=== PATIENT | female | born 1940 ===

== ENCOUNTER 2017-06-07 06:44 | Emergency (ER) | payer MEDICARE, MEDICAID ==
--- NOTE | 2017-06-07 07:11 | ED PDOC ---
HPI: CCC, URI, Sore Throat Time Seen by Provider: 06/07/17 07:04 History Per: Family Onset/Duration Of Symptoms: Days (3) Current Symptoms Are (Timing): Still Present Associated Symptoms: Cough, Sputum. denies: Fever Severity: Moderate Additional Complaint(s): Cough productive beige sputum assoc with pleuritic chest pain x 3 days. Seen at ED in [place] and dx'ed with bronchitis but on no meds. denies SOB CT chest neg Past Medical History Vital Signs: Last Vital Signs Temp Pulse Resp BP 98/60 L 06/07/17 08:00 Pulse Ox - Medical History PMH: Alzheimer's Disease, Arthritis, Asthma, Dementia, Diabetes, Gastritis, HTN , Hypercholesterolemia Denies: Chronic Kidney Disease - Family History Family History: States: Unknown Family Hx - Home Medications Home Medications: Ambulatory Orders Medication Instructions Recorded Ammonium Lactate 12% [Lac-Hydrin 1 bottle TOP BID 02/28/17 12% Lotion (225 g)] Enalapril Maleate [Vasotec] 20 mg PO DAILY 02/28/17 Folic Acid 1 mg PO DAILY 02/28/17 Levothyroxine [Synthroid] 150 mcg PO DAILY 02/28/17 Memantine HCl [Namenda Xr] 28 mg PO DAILY 02/28/17 Metformin HCl [Glucophage] 850 mg PO BID 02/28/17 Omeprazole 20 mg PO DAILY 02/28/17 Rosuvastatin Calcium [Crestor] 10 mg pe PO HS 02/28/17 Sertraline HCl 50 mg PO DAILY 02/28/17 amLODIPine [Norvasc] 10 mg PO DAILY 02/28/17 Acetaminophen [Tylenol 325mg tab] 650 mg PO Q6 PRN tab 03/04/17 Aspirin [Aspirin Chewable] 81 mg PO DAILY chew 03/04/17 Enoxaparin [Lovenox] 40 mg SC DAILY syr 03/04/17 Memantine [Namenda] 10 mg PO BID tab 03/04/17 Albuterol 0.083% [Albuterol 3 ml IH Q8 #1 neb 06/07/17 Sulfate 3 Ml] Azithromycin [Zithromax] 250 mg PO DAILY #6 tab 06/07/17 Non-Formulary 1 ea .ROUTE Q6 #1 ea 06/07/17 predniSONE [predniSONE Tab] 10 mg PO TID #15 tab 06/07/17 - Allergies Allergies/Adverse Reactions: Allergies Allergy/AdvReac Type Severity Reaction Status Date / Time No Known Allergies Allergy Verified 08/08/14 08:10 Review of Systems Constitutional: Negative for: Fever Respiratory: Positive for: Cough, Pleuritic Pain. Negative for: Shortness of Breath Gastrointestinal: Negative for: Nausea, Vomiting Musculoskeletal: Positive for: Back Pain Physical Exam - Physical Exam Appears: Positive for: Non-toxic, No Acute Distress Skin: Positive for: Normal Color, Warm, DRY Cardiovascular/Chest: Positive for: Regular Rate, Rhythm Respiratory: Positive for: Rhonchi. Negative for: Wheezing, Respiratory Distress Back: Positive for: Normal Inspection. Negative for: Vertebral Tenderness Extremity: Positive for: Normal ROM Neurologic/Psych: Positive for: Alert, Oriented Disposition - Clinical Impression Clinical Impression: Bronchitis - Patient ED Disposition Is Patient to be Admitted: No Counseled Patient/Family Regarding: Studies Performed, Diagnosis, Need For Followup, Rx Given - Disposition Referrals: Jonel Jerry MD [Primary Care Provider] - Disposition: Routine/Home Disposition Time: 08:40 Condition: FAIR Prescriptions: Albuterol 0.083% [Albuterol Sulfate 3 Ml] 3 ml IH Q8 #1 neb Azithromycin [Zithromax] 250 mg PO DAILY #6 tab Non-Formulary 1 ea .ROUTE Q6 #1 ea predniSONE [predniSONE Tab] 10 mg PO TID #15 tab Instructions: Acute Bronchitis (ED) Print Language: FIJIAN
--- NOTE | 2017-06-07 09:57 | RAD ---
HISTORY: cough COMPARISON: Chest radiograph dated 02/28/2017. TECHNIQUE: Chest PA and lateral FINDINGS: LUNGS: Stable chronic prominence of the bilateral interstitial markings. No focal consolidation. PLEURA: No significant pleural effusion identified. No pneumothorax apparent. CARDIOVASCULAR: Atherosclerotic aortic calcifications. Cardiomediastinal silhouette unchanged. OSSEOUS STRUCTURES: Unchanged. VISUALIZED UPPER ABDOMEN: Normal. OTHER FINDINGS: None. IMPRESSION: Stable chronic prominence of the bilateral interstitial markings. No focal consolidation or pleural effusion.
[2017-06-07 10:35] VITALS: PULSE 86
[2017-06-07 10:50] VITALS: BP 100/60; RESP 16; TEMP 98.3
--- NOTE | 2017-06-08 16:46 | CARD ---
APPROVED REPORT EKG Measurement Heart [id number] <Conclusion> Normal sinus rhythm Normal ECG
== END 2017-06-07 10:53 | disposition home or self-care (01) ==
LOC: H.ER 06:44
DX: J20.9 Acute bronchitis, unspecified (principal); E11.9 Type 2 diabetes mellitus without complications; F02.80 Dementia in other diseases classified elsewhere, unspecified severity, without behavioral disturbance, psychotic disturbance, mood disturbance, and anxiety; G30.9 Alzheimer's disease, unspecified; I10 Essential (primary) hypertension; J45.909 Unspecified asthma, uncomplicated; E78.00 Pure hypercholesterolemia, unspecified

== ENCOUNTER 2017-09-19 11:02 | Emergency (ER) | payer MEDICARE, MEDICAID ==
[2017-09-19] MEDS ORDERED: Albuterol-Ipratrop 3 mg / 0.5 (3 ml) UD INH STA ×2 (11:46→11:47)
--- NOTE | 2017-09-19 11:59 | ED PDOC ---
History of Present Illness History of Present Illness: [facility] as patient has dementia and is unable to provide. She has been with the patient for 10 years. 77 year old female brought in by home health aide for cough x 4 days. She states she was given albuterol treatment yesterday at home without improvement. Cough is nonproductive, worse at night. No fevers, chills, cold symptoms, chest pain, dyspnea, abdominal pain, nausea, diarrhea. She has PMH: DM, Hypothyroid, Dementia, HTN PMD: Dr. Jonel Jerry <Clark Parada - Last Filed: 10/02/17 02:21> HPI: Influenza History Per: Patient <Clark Parada - Last Filed: 10/02/17 02:21> <Carlos Alberto Becker III - Last Filed: 10/04/17 18:27> Chief Complaint: Cough, Cold, Congestion Past Medical History Vital Signs: Last Vital Signs Temp 97.6 F 09/19/17 11:20 Pulse 79 09/19/17 11:20 Resp 20 09/19/17 11:20 BP 94/62 L 09/19/17 11:20 Pulse Ox 96 09/19/17 11:20 - Medical History PMH: Alzheimer's Disease, Arthritis, Asthma, Dementia, Diabetes, Gastritis, HTN , Hypercholesterolemia Denies: Chronic Kidney Disease - Family History Family History: States: Unknown Family Hx <Clark Parada - Last Filed: 10/02/17 02:21> Vital Signs: Last Vital Signs Temp 98.3 F 09/19/17 14:44 Pulse 73 09/19/17 14:44 Resp 15 09/19/17 14:44 BP 107/72 09/19/17 14:44 Pulse Ox 96 10/02/17 02:22 <Carlos Alberto Becker III - Last Filed: 10/04/17 18:27> - Home Medications Home Medications: Ambulatory Orders Medication Instructions Recorded Ammonium Lactate 12% [Lac-Hydrin 1 bottle TOP BID 02/28/17 12% Lotion (225 g)] Enalapril Maleate [Vasotec] 20 mg PO DAILY 02/28/17 Folic Acid 1 mg PO DAILY 02/28/17 Levothyroxine [Synthroid] 150 mcg PO DAILY 02/28/17 Memantine HCl [Namenda Xr] 28 mg PO DAILY 02/28/17 Metformin HCl [Glucophage] 850 mg PO BID 02/28/17 Omeprazole 20 mg PO DAILY 02/28/17 Rosuvastatin Calcium [Crestor] 10 mg pe PO HS 02/28/17 Sertraline HCl 50 mg PO DAILY 02/28/17 amLODIPine [Norvasc] 10 mg PO DAILY 02/28/17 Acetaminophen [Tylenol 325mg tab] 650 mg PO Q6 PRN tab 03/04/17 Aspirin [Aspirin Chewable] 81 mg PO DAILY chew 03/04/17 Enoxaparin [Lovenox] 40 mg SC DAILY syr 03/04/17 Memantine [Namenda] 10 mg PO BID tab 03/04/17 Albuterol 0.083% [Albuterol 3 ml IH Q8 #1 neb 06/07/17 Sulfate 3 Ml] Azithromycin [Zithromax] 250 mg PO DAILY #6 tab 06/07/17 Non-Formulary 1 ea .ROUTE Q6 #1 ea 06/07/17 predniSONE [predniSONE Tab] 10 mg PO TID #15 tab 06/07/17 predniSONE [predniSONE Tab] 20 mg PO DAILY #5 tab 09/19/17 - Allergies Allergies/Adverse Reactions: Allergies Allergy/AdvReac Type Severity Reaction Status Date / Time No Known Allergies Allergy Verified 08/08/14 08:10 Review of Systems Constitutional: Negative for: Fever, Chills, Sweats Eyes: Negative for: Pain, Vision Change ENT: Negative for: Ear Pain, Nose Pain Cardiovascular: Negative for: Chest Pain, Palpitations, Orthopnea Respiratory: Positive for: Cough, Wheezing. Negative for: Shortness of Breath, Hemoptysis, SOB with Exertion, Pleuritic Pain, Sputum Gastrointestinal: Negative for: Nausea, Vomiting, Abdominal Pain, Diarrhea, Constipation Genitourinary Female: Negative for: Dysuria, Frequency, Hematuria Skin: Negative for: Rash Neurological: Negative for: Weakness, Numbness, Incoordination Psych: Negative for: Anxiety, Depression <Clark Parada - Last Filed: 10/02/17 02:21> Physical Exam - Physical Exam Appears: Positive for: Well, Non-toxic, No Acute Distress Head Exam: Positive for: ATRAUMATIC, NORMAL INSPECTION, NORMOCEPHALIC Skin: Positive for: Normal Color, Warm, DRY Eye Exam: Positive for: Normal appearance ENT: Positive for: Normal ENT Inspection Neck: Positive for: Normal, Painless ROM Cardiovascular/Chest: Negative for: Regular Rate, Rhythm, Chest Non Tender, Edema, Murmur, Bradycardia, Tachycardia Respiratory: Positive for: Decreased Breath Sounds, Wheezing. Negative for: Accessory Muscle Use, Stridor, Respiratory Distress, Plerual Rub Gastrointestinal/Abdominal: Negative for: Normal Exam, Bowel Sounds, Soft, Tenderness Back: Positive for: Normal Inspection Extremity: Negative for: Tenderness, Pedal Edema Neurologic/Psych: Positive for: Alert, ssas developer II-XII, Oriented. Negative for: Motor/Sensory Deficits <Clark Parada - Last Filed: 10/02/17 02:21> Medical Decision Making Medical Decision Makin77 year old female with non productive cough x 4 days. , likely related to COPD. --CBC --CMP --CXR --DUONEB x 2 Case d/w Dr. Becker --13:41 Patient reeval: lying comfortably in bed. No cough. CXR reviewed pending report Labs reviewed and discussed with patient. No leukocytosis, mild anemia. Elevated BUN/CR that is chronic. D/w Dr. Becker <Clark Parada - Last Filed: 10/02/17 02:21> - Laboratory Results Result Diagrams: 09/19/17 12:50 09/19/17 12:50 - ECG O2 Sat by Pulse Oximetry: 96 <Clark Parada - Last Filed: 10/02/17 02:21> - Laboratory Results Result Diagrams: 09/19/17 12:50 09/19/17 12:50 <Carlos Alberto Becker III - Last Filed: 10/04/17 18:27> Disposition - Disposition Disposition Time: 02:22 <Clark Parada - Last Filed: 10/02/17 02:21> <Carlos Alberto Becker III - Last Filed: 10/04/17 18:27> - Clinical Impression Clinical Impression: Cough, Acute bronchitis - Disposition Referrals: Jonel Jerry MD [Family Provider] - Condition: STABLE Additional Instructions: Return to ED in 1-2 days if symptoms do not improve. Prescriptions: predniSONE [predniSONE Tab] 20 mg PO DAILY #5 tab Instructions: Cough in Adults, Acute Bronchitis, Adult (DC), Acute Bronchitis Forms: [facility] (Italian) Print Language: KHMER Attending/Attestation - Attestation I have personally seen and examined this patient.: Yes I have fully participated in the care of the patient.: Yes I have reviewed all pertinent clinical information: Yes <Carlos Alberto Becker III - Last Filed: 10/04/17 18:27>
[2017-09-19] MEDS ORDERED: Albuterol-Ipratrop 3 mg / 0.5 (3 ml) UD ONE (12:04)
[2017-09-19 13:22] LABS: ALB/GLOB RATIO 1.3 (1.0-2.1); CALCIUM 9.6 mg/dL (8.4-10.2)
[2017-09-19 13:31] LABS: BASO # 0.2 K/uL (0.0-0.2); BASO % 2.5 % (0.0-2.0); EOS # 0.8 K/uL (0.0-0.7); EOS % 8.4 % (0.0-4.0); LYMPH # 3.7 K/uL (1.0-4.3); LYMPH % 41.5 % (20.0-40.0); MEAN CELL VOLUME 90.7 fl (81.0-99.0); MEAN CORPUSCULAR HEMOGLOBIN 30.2 pg (27.0-31.0); MEAN CORPUSCULAR HGB CONC 33.3 g/dL (33.0-37.0); MONO # 0.6 K/uL (0.0-0.8); MONO % 6.7 % (0.0-10.0); NEUT # 3.7 K/uL (1.8-7.0); NEUT % 40.9 % (50.0-75.0); RBC 3.64 Mil/uL (3.80-5.20); RED CELL DISTRIBUTION WIDTH 13.3 % (11.5-14.5)
--- NOTE | 2017-09-19 13:52 | RAD ---
HISTORY: COMPARISON: 06/07/2017. TECHNIQUE: Chest PA and lateral FINDINGS: LINES AND TUBES: None. LUNG AND PLEURA: The lungs are well inflated. There is mild pulmonary venous congestion. No focal consolidation. HEART AND MEDIASTINUM: The heart is not enlarged. The hilar and mediastinal contours are within normal limits. SKELETAL STRUCTURES: The bony structures are within normal limits for the patient's age. VISUALIZED UPPER ABDOMEN: Normal. OTHER FINDINGS: None. IMPRESSION: Mild pulmonary venous congestion. No active pulmonary disease.
[2017-09-19 14:45] VITALS: BP 107/72; PULSE 73; RESP 15; TEMP 98.3
[2017-10-02 02:22] VITALS: O2SAT 96
== END 2017-09-19 14:47 | disposition home or self-care (01) ==
LOC: H.ER 11:02
DX: J20.9 Acute bronchitis, unspecified (principal); F02.80 Dementia in other diseases classified elsewhere, unspecified severity, without behavioral disturbance, psychotic disturbance, mood disturbance, and anxiety; I10 Essential (primary) hypertension; J45.909 Unspecified asthma, uncomplicated; Z79.82 Long term (current) use of aspirin; G30.9 Alzheimer's disease, unspecified; E78.00 Pure hypercholesterolemia, unspecified; E11.9 Type 2 diabetes mellitus without complications; E03.9 Hypothyroidism, unspecified
CPT/HCPCS: 71046; 80053; 85025; 94640; 96374; 99283; J2930

== ENCOUNTER 2017-11-05 09:20 | Inpatient (IN) | payer MEDICARE, MEDICAID ==
[2017-11-05] MEDS ORDERED: Albuterol-Ipratrop 3 mg / 0.5 (3 ml) UD IH STA (10:04)
--- NOTE | 2017-11-05 10:24 | ED PDOC ---
History of Present Illness History of Present Illness: 77 year old female with dementia and asthma presents to the ED with her daughter complaining of a non productive cough for five months, and a fever onset this morning. Denies chest pain and shortness of breath. The daughter states she has been giving the patient a nebulizer and inhaler at home with almost no improvement. PMD: Jonel Jerry HPI: Influenza Time Seen by Provider: 11/05/17 10:01 Chief Complaint: Cough, Cold, Congestion Past Medical History Reviewed: Historical Data Vital Signs: Last Vital Signs Temp 100.4 F H 11/05/17 09:43 Pulse 126 H 11/05/17 09:43 Resp 20 11/05/17 09:43 BP 105/59 L 11/05/17 09:43 Pulse Ox 95 11/05/17 09:43 - Medical History PMH: Alzheimer's Disease, Arthritis, Asthma, Dementia, Diabetes, Gastritis, HTN , Hypercholesterolemia Denies: Chronic Kidney Disease - Surgical History Surgical History: No Surg Hx - Family History Family History: States: Unknown Family Hx - Social History Ex-Smoker (has not smoked in the last 12 months): Yes Alcohol: None Drugs: Denies - Home Medications Home Medications: Ambulatory Orders Medication Instructions Recorded Enalapril Maleate [Vasotec] 20 mg PO DAILY 02/28/17 Levothyroxine [Synthroid] 88 mcg PO DAILY 02/28/17 Memantine HCl [Namenda Xr] 28 mg PO DAILY 02/28/17 Metformin HCl [Glucophage] 850 mg PO BID 02/28/17 Omeprazole 20 mg PO DAILY 02/28/17 Sertraline HCl 50 mg PO DAILY 02/28/17 amLODIPine [Norvasc] 10 mg PO DAILY 02/28/17 Aspirin [Aspirin Chewable] 81 mg PO DAILY chew 03/04/17 Cyproheptadine HCl 4 mg PO DAILY 11/05/17 Mirtazapine [Remeron] 15 mg PO HS 11/05/17 Rosuvastatin Calcium [Crestor] 10 mg PO DAILY 11/05/17 - Allergies Allergies/Adverse Reactions: Allergies Allergy/AdvReac Type Severity Reaction Status Date / Time No Known Allergies Allergy Verified 11/05/17 09:52 Review of Systems ROS Statement: Except As Marked, All Systems Reviewed And Found Negative Constitutional: Positive for: Fever Cardiovascular: Negative for: Chest Pain Respiratory: Positive for: Cough (non productive). Negative for: Shortness of Breath Physical Exam - Reviewed Nursing Documentation Reviewed: Yes Vital Signs Reviewed: Yes - Physical Exam Appears: Positive for: No Acute Distress Head Exam: Positive for: ATRAUMATIC, NORMOCEPHALIC Skin: Positive for: Normal Color, Warm, Dry Eye Exam: Positive for: Normal appearance ENT: Positive for: Normal ENT Inspection. Negative for: Pharyngeal Erythema Neck: Positive for: Normal, Painless ROM, Supple Cardiovascular/Chest: Positive for: Regular Rate, Rhythm. Negative for: Murmur Respiratory: Positive for: Rhonchi (bilaterally), Wheezing (expiratory bilaterally). Negative for: Respiratory Distress Gastrointestinal/Abdominal: Positive for: Normal Exam, Soft. Negative for: Tenderness Back: Positive for: Normal Inspection Extremity: Positive for: Normal ROM. Negative for: Pedal Edema, Calf Tenderness Neurologic/Psych: Positive for: Alert, Oriented (x1). Negative for: Motor/ Sensory Deficits Medical Decision Making Medical Decision Making: Initial Impression: cough, asthma, cold-like symptoms Time: 10:04 Initial Plan: --EKG --CMP --Urine dipstick --CBC with differential --Chest XR --Duoneb 3ml INH --methylprednisolone 125mg IVP --Blood culture --Peak flow pre/post Scribe Attestation: Documented by Lidia Villavicencio, acting as a scribe for Abraham Pate MD. Provider Scribe Attestation: All medical entries made by the Scribe were at my direction and personally dictated by me. I have reviewed the chart and agree that the record accurately reflects my personal performance of the history, physical exam, medical decision making, and the department course for this patient. I have also personally directed, reviewed, and agree with the discharge instructions and disposition. - Laboratory Results Result Diagrams: 11/05/17 10:26 11/05/17 10:26 - ECG O2 Sat by Pulse Oximetry: 95 Disposition - Clinical Impression Clinical Impression: Bronchitis, Asthma, Diabetes, Dementia - Patient ED Disposition Is Patient to be Admitted: Yes - Disposition Disposition Time: 11:48 Condition: FAIR Forms: [facility] (Croatian) - Pt Status Changed To: Hospital Disposition Of: Observation - POA Present On Arrival: None
[2017-11-05] MEDS ORDERED: Albuterol-Ipratrop 3 mg / 0.5 (3 ml) UD ONE (10:27)
[2017-11-05 10:40] LABS: BASO # 0.1 K/uL (0.0-0.2); BASO % 1.1 % (0.0-2.0); EOS # 0.1 K/uL (0.0-0.7); HEMOGLOBIN 10.3 g/dL (12.0-16.0); LYMPH # 0.9 K/uL (1.0-4.3); MEAN CORPUSCULAR HEMOGLOBIN 30.1 pg (27.0-31.0); MEAN CORPUSCULAR HGB CONC 34.1 g/dL (33.0-37.0); MEAN PLATELET VOLUME 8.8 fl (7.2-11.7); MONO # 0.6 K/uL (0.0-0.8); MONO % 5.6 % (0.0-10.0); NEUT # 9.5 K/uL (1.8-7.0); NEUT % 84.3 % (50.0-75.0); PLATELET COUNT 182 K/uL (130-400); RED CELL DISTRIBUTION WIDTH 14.2 % (11.5-14.5); WHITE BLOOD COUNT 11.2 K/uL (4.8-10.8)
[2017-11-05 10:44] LABS: MEAN CELL VOLUME 88.3 fl (81.0-99.0)
[2017-11-05 10:47] LABS: ALB/GLOB RATIO 1.2 (1.0-2.1); ALBUMIN 4.2 g/dL (3.5-5.0); CALCIUM 9.1 mg/dL (8.4-10.2)
--- NOTE | 2017-11-05 10:47 | RAD ---
HISTORY: cough COMPARISON: Chest radiograph dated 09/19/2017. TECHNIQUE: Chest PA and lateral FINDINGS: LUNGS: Stable chronic prominence of the bilateral interstitial markings. No focal consolidation. PLEURA: No significant pleural effusion identified. No pneumothorax apparent. CARDIOVASCULAR: Atherosclerotic aortic calcifications. Cardiomediastinal silhouette within normal limits. OSSEOUS STRUCTURES: Unchanged. VISUALIZED UPPER ABDOMEN: Normal. OTHER FINDINGS: None. IMPRESSION: No active disease.
[2017-11-05] MEDS ORDERED: cefTRIAXone (Rocephin) 1 gm Inj ONE (12:03)
[2017-11-05 13:03] LABS: EOSINOPHIL 1 % (0-7); LYMPHOCYTE 10 % (20-50); MONOCYTE 5 % (0-10); NEUTROPHIL 83 % (42-75); PLATELET ESTIMATE NORMAL (NORMAL); REACTIVE LYMPHOCYTES 1 % (0-0); TOTAL CELLS COUNTED 100
[2017-11-05 13:04] LABS: ANISOCYTOSIS SLIGHT; GIANT PLATELETS PRESENT; HYPOCHROMIC SLIGHT; LARGE PLATELETS PRESENT; OVALOCYTES SLIGHT
[2017-11-05] MEDS ORDERED: Albuterol-Ipratrop 3 mg / 0.5 (3 ml) UD INH PRN (16:29)
--- NOTE | 2017-11-05 16:51 | US ---
PROCEDURE: Ultrasound of the Kidneys HISTORY: MAGUI COMPARISON: None available. TECHNIQUE: Sonogram of the kidneys. FINDINGS: RIGHT KIDNEY: Measures: 7.4 x 3.9 x 4.2 cm. Normal in size, contour and echogenicity. No stone, solid mass lesion or hydronephrosis visualized. LEFT KIDNEY: Measures: 8.4 x 4.6 x 4.0 cm. Normal in size, contour and echogenicity. No stone, solid mass lesion or hydronephrosis visualized. OTHER FINDINGS: None. IMPRESSION: Unremarkable renal sonogram.
[2017-11-05] MEDS: Insulin Regular 100 units/ml SC SCH ×2 (18:17→23:04)
[2017-11-05] MEDS: Sodium Chloride 0.9% 1,000 ML IV SCH (18:18)
[2017-11-05 19:16] LABS: URIC ACID 6.6 mg/Dl (2.2-7.5)
[2017-11-05 19:21] LABS: IRON 17 ug/dL (37-170)
[2017-11-05] MEDS: Albuterol-Ipratrop 3 mg / 0.5 (3 ml) UD INH SCH (19:24)
[2017-11-05 19:31] LABS: % IRON SATURATION 5 % (20-55); TOTAL IRON BINDING CAPACITY 318 ug/dL (250-450)
[2017-11-05 19:56] LABS: FERRITIN 45.2 ng/Ml (11.1-264.0)
--- NOTE | 2017-11-05 22:18 | CP.PCM.CON ---
History of Present Illness - History of Present Illness History of Present Illness: Nephrology Consultation Note: Assessment: Stable Acute Kidney Injury (N17.9) likely due to pre-renal/dehydration and low BP Diabetic chronic Kidney Disease (E11.22) Hypertensive Chronic Kidney Disease (I12.9) Chronic Kidney Disease (N18.3) Stage 3 with ? mg proteinuria (R80.9) likely due to ? Anemia (D64.9), HTN (I12.9) COPD exacerbation dementia hypothyroidism Plan No acute need for renal replacement therapy at this time. BP control tightly with meds as ordered. Patient not on ACEI/ARB due to MAGUI. hold BP meds Monitor Input/Output, daily weights and renal function with basic metabolic panel IVF as NS @ 100 ml/hr Check urine analysis, urine NA, spot protein/creatinine and albumin/creatinine ratio, renal sonogram. BNP, CPK, uric acid. Check for 25-OH vitamin D, iPTH, phosphorus level, TSAT/Ferritin hold metformin Dose meds/antibiotics for reduced GFR. Avoid fleets enema/magnesium based laxatives. Avoid nephrotoxins/NSAIDs/ iodinated contrast (unless needed emergently) Glycemic control Further work up/management as per primary team Thanks for allowing me to participate in care of your patient. Will follow patient with you. Please call if any Qs Dr Ken Zuñiga Office: [phone] Chief Complaint; cough reason for consult: MAGUI HPI: Pt is a 77 F with hx of diabetes Mellitus ( years), hypertension (years) dementia asthma/copd, ex smoker presented with complaints of cough for last few months but worsening and MAGUI hence renal consulted Denies OTC/herbal meds or NSAIDs No recent iodinated contrast exposure. Noted obvious episodes of low BP. likely with CKD stage 3 with baseline cr as 1.3 pt unable to provide much hx ROS: Cardiovascular: No chest pain. Pulmonary: No shortness of breath Gastrointestinal: denies abdominal pain No nausea. No vomiting. Genitourinary: No pain while urinating. Denies blood in urine. limited from pt due to dementia. Physical Examination: family bedside General Appearance: Comfortable, in no acute respiratory distress, co-operative . Vitals reviewed and noted as below Head; Atraumatic, normocephalic ENT: no ulcers no thrush. Tongue is midline/dry. Oropharynx: no rash or ulcers. EYES: Pupils are equal, round and reactive to light accommodation. Eye muscles and extraocular movement intact. Sclera is anicteric. Neck; supple no lymphadenopathy, no thyromegaly or bruit Lungs: Normal respiratory rate/effort. Breath sounds bilateral equal and few wheeze Heart: Normal rate. s1s2 normal. No rub or gallop. Extremities: no edema. No varicose veins Neurological: Patient is alert, awake and demented. No focal deficit. Strength bilateral appropriate and equal Skin: Warm and dry. Normal turgor. No rash. Palpitation: Normal elasticity for age Abdomen: Abdomen is soft. Bowel sounds +. There is no abdominal tenderness, no guarding/rigidity no organomegaly Psych: lack insight and normal affect/mood MSK: no joint tenderness or swelling. Digits and nails normal, no deformity : kidney or bladder not palpable Labs/imaging reviewed. Past medical history, past surgical history, family history, social history, allergy reviewed and noted as below Family hx: no hx of CKD. Rest non-contributory Past Patient History - Past Medical History & Family History Past Medical History?: Yes - Past Social History Smoking Status: Former Smoker - CARDIAC Hx Cardiac Disorders: Yes - PULMONARY Hx Respiratory Disorders: Yes - NEUROLOGICAL Hx Alzheimer's Disease: Yes Hx Dementia: Yes - HEENT Hx HEENT Problems: No - RENAL Hx Chronic Kidney Disease: No - ENDOCRINE/METABOLIC Hx Endocrine Disorders: Yes - HEMATOLOGICAL/ONCOLOGICAL Hx Cancer: Yes - INTEGUMENTARY Hx Dermatological Problems: No - MUSCULOSKELETAL/RHEUMATOLOGICAL Hx Musculoskeletal Disorders: Yes Hx Falls: Yes - GASTROINTESTINAL Hx Gastritis: Yes - GENITOURINARY/GYNECOLOGICAL Hx Genitourinary Disorders: Yes Hx Cervical Cancer: Yes - PSYCHIATRIC Hx Psychophysiologic Disorder: Yes Hx Substance Use: No - SURGICAL HISTORY Hx Hysterectomy: Yes - ANESTHESIA Hx Anesthesia: Yes Hx Anesthesia Reactions: No Hx Malignant Hyperthermia: No Meds Allergies/Adverse Reactions: Allergies Allergy/AdvReac Type Severity Reaction Status Date / Time No Known Allergies Allergy Verified 11/05/17 09:52 - Medications Medications: Current Medications Albuterol/Ipratropium (Duoneb 3 Mg/0.5 Mg (3 Ml) Ud) 3 ml INH RQ6 MEJIA Last Admin: 11/05/17 19:24 Dose: 3 ml Aspirin (Aspirin Chewable) 81 mg PO DAILY MEJIA Atorvastatin Calcium (Lipitor) 20 mg PO DAILY [facility] Home Med (Memantine Hcl [Namenda Xr]) 28 mg PO DAILY [facility] Ceftriaxone Sodium 1 gm/ (Sodium Chloride) 100 mls @ 100 mls/hr IVPB DAILY MEJIA PRN Reason: Protocol Sodium Chloride (Sodium Chloride 0.9%) 1,000 mls @ 100 mls/hr IV .Q10H MEJIA Stop: 11/07/17 16:16 Last Admin: 11/05/17 18:18 Dose: 100 mls/hr Insulin Human Regular (Humulin R) 0 units SC ACCU-CHECK MEJIA PRN Reason: Protocol Last Admin: 11/05/17 18:17 Dose: 2 u Levothyroxine Sodium (Synthroid) 88 mcg PO DAILY [facility] Methylprednisolone (Solu-Medrol) 125 mg IVP Q8 [facility] Last Admin: 11/05/17 18:20 Dose: 125 mg Mirtazapine (Remeron) 15 mg PO HS [facility] Pantoprazole Sodium (Protonix Ec Tab) 40 mg PO DAILY [facility] Sertraline HCl (Zoloft) 50 mg PO DAILY [facility] Results - Vital Signs Recent Vital Signs: Last Vital Signs Temp 98 F 11/05/17 16:50 Pulse 100 H 11/05/17 19:24 Resp 18 11/05/17 16:50 BP 104/64 11/05/17 16:50 Pulse Ox 98 11/05/17 16:50 - Labs Result Diagrams: 11/05/17 10:26 11/05/17 10:26 Labs: Laboratory Results - last 24 hr 11/05/17 11/05/17 11/05/17 10:26 10:26 17:37 WBC 11.2 H RBC 3.40 L Hgb 10.3 L Hct 30.1 L MCV 88.3 D MCH 30.1 MCHC 34.1 RDW 14.2 Plt Count 182 D MPV 8.8 Neut % (Auto) 84.3 H Lymph % (Auto) 8.0 L Riley % (Auto) 5.6 Eos % (Auto) 1.0 Baso % (Auto) 1.1 Neut # (Auto) 9.5 H Lymph # (Auto) 0.9 L Riley # (Auto) 0.6 Eos # (Auto) 0.1 Baso # (Auto) 0.1 Neutrophils % (Manual) 83 H Lymphocytes % (Manual) 10 L Reactive Lymphs % 1 H Monocytes % (Manual) 5 Eosinophils % (Manual) 1 Platelet Estimate Normal Large Platelets Present Giant Platelets Present Hypochromasia (manual) Slight Anisocytosis (manual) Slight Ovalocytes Slight Sodium 140 Potassium 4.8 Chloride 106 Carbon Dioxide 20 L Anion Gap 19 BUN 46 H Creatinine 3.4 H Est GFR ( Amer) 16 Est GFR (Non-Af Amer) 13 POC Glucose (mg/dL) 182 H Random Glucose 122 H Uric Acid Calcium 9.1 Iron TIBC % Saturation Ferritin Total Bilirubin 0.8 AST 24 ALT 24 Alkaline Phosphatase 78 Total Creatine Kinase NT-Pro-B Natriuret Pep Total Protein 7.7 Albumin 4.2 Globulin 3.5 Albumin/Globulin Ratio 1.2 11/05/17 11/05/17 18:52 18:52 WBC RBC Hgb Hct MCV MCH MCHC RDW Plt Count MPV Neut % (Auto) Lymph % (Auto) Riley % (Auto) Eos % (Auto) Baso % (Auto) Neut # (Auto) Lymph # (Auto) Riley # (Auto) Eos # (Auto) Baso # (Auto) Neutrophils % (Manual) Lymphocytes % (Manual) Reactive Lymphs % Monocytes % (Manual) Eosinophils % (Manual) Platelet Estimate Large Platelets Giant Platelets Hypochromasia (manual) Anisocytosis (manual) Ovalocytes Sodium Potassium Chloride Carbon Dioxide Anion Gap BUN Creatinine Est GFR ( Amer) Est GFR (Non-Af Amer) POC Glucose (mg/dL) Random Glucose Uric Acid 6.6 Calcium Iron 17 L TIBC 318 % Saturation 5 L Ferritin 45.2 Total Bilirubin AST ALT Alkaline Phosphatase Total Creatine Kinase 71 NT-Pro-B Natriuret Pep 1870 H Total Protein Albumin Globulin Albumin/Globulin Ratio
[2017-11-06] MEDS: Albuterol-Ipratrop 3 mg / 0.5 (3 ml) UD INH SCH ×4 (01:20→19:10)
[2017-11-06] MEDS: Sodium Chloride 0.9% 1,000 ML IV SCH ×2 (01:23→14:37)
[2017-11-06] MEDS: Insulin Regular 100 units/ml SC SCH ×4 (07:48→22:30)
[2017-11-06 07:53] LABS: BASO % 0.1 % (0.0-2.0); HEMOGLOBIN 9.8 g/dL (12.0-16.0); LYMPH # 0.5 K/uL (1.0-4.3); MEAN CELL VOLUME 88.4 fl (81.0-99.0); MEAN CORPUSCULAR HEMOGLOBIN 30.4 pg (27.0-31.0); MEAN CORPUSCULAR HGB CONC 34.4 g/dL (33.0-37.0); MEAN PLATELET VOLUME 9.2 fl (7.2-11.7); MONO # 0.1 K/uL (0.0-0.8); MONO % 1.1 % (0.0-10.0); NEUT # 9.4 K/uL (1.8-7.0); NEUT % 93.8 % (50.0-75.0); PLATELET COUNT 193 K/uL (130-400); RBC 3.22 Mil/uL (3.80-5.20); RED CELL DISTRIBUTION WIDTH 14.1 % (11.5-14.5); WHITE BLOOD COUNT 10.1 K/uL (4.8-10.8)
[2017-11-06 08:04] LABS: CALCIUM 9.2 mg/dL (8.4-10.2)
[2017-11-06] MEDS: Levothyroxine 88 MCG TAB PO SCH (09:47)
[2017-11-06] MEDS: Multivitamin Vitamin B Complex (Nephro-Vite) Tab PO SCH (09:47)
[2017-11-06] MEDS: Pantoprazole 40 mg EC Tab PO SCH (09:48)
[2017-11-06 10:40] LABS: LYMPHOCYTE 6 % (20-50); MONOCYTE 2 % (0-10); NEUTROPHIL 92 % (42-75); TOTAL CELLS COUNTED 100
[2017-11-06 10:41] LABS: ANISOCYTOSIS SLIGHT; OVALOCYTES SLIGHT; PLATELET ESTIMATE NORMAL (NORMAL)
[2017-11-06 10:42] LABS: MICROCYTOSIS SLIGHT
[2017-11-06 16:44] LABS: SQUAMOUS EPITHIAL 2 /hpf (0-5); URINE BACTERIA RARE (<OCC); URINE BILIRUBIN NEGATIVE (NEGATIVE); URINE CLARITY CLOUDY (Clear); URINE COLOR YELLOW (YELLOW); URINE GLUCOSE (UA) 50 mg/dL (Normal); URINE PROTEIN 100 mg/dL (NEGATIVE); URINE UROBILINOGEN 0.2-1.0 mg/dL (0.2-1.0)
[2017-11-06 16:45] LABS: URINE BLOOD NEGATIVE (NEGATIVE); URINE LEUKOCYTE ESTERASE NEGATIVE Leu/uL (Negative)
[2017-11-06 16:57] LABS: CREATININE, RANDOM URINE 78.2 mg/dL
[2017-11-06] MEDS ORDERED: Sodium Chloride 0.9% 1,000 ML IV SCH (19:01)
--- NOTE | 2017-11-06 19:02 | CP.PCM.PN ---
Subjective - Date & Time of Evaluation Date of Evaluation: 11/06/17 Time of Evaluation: 19:01 - Subjective Subjective: Nephrology Consultation Note: Assessment: Stable Acute Kidney Injury (N17.9) likely due to pre-renal/dehydration and low BP: better with IVF Diabetic chronic Kidney Disease (E11.22) Hypertensive Chronic Kidney Disease (I12.9) Chronic Kidney Disease (N18.3) Stage 3 with ? mg proteinuria (R80.9) likely due to ? Anemia (D64.9), HTN (I12.9) COPD exacerbation dementia hypothyroidism Plan No acute need for renal replacement therapy at this time. BP control tightly with meds as ordered. Patient not on ACEI/ARB due to MAGUI. hold BP meds Monitor Input/Output, daily weights and renal function with basic metabolic panel IVF as NS @ 50 ml/hr started iron supplements Check urine analysis, urine NA, spot protein/creatinine and albumin/creatinine ratio, renal sonogram. BNP, CPK, uric acid. Check for 25-OH vitamin D, iPTH, phosphorus level, TSAT/Ferritin hold metformin Dose meds/antibiotics for reduced GFR. Avoid fleets enema/magnesium based laxatives. Avoid nephrotoxins/NSAIDs/ iodinated contrast (unless needed emergently) Glycemic control Further work up/management as per primary team Thanks for allowing me to participate in care of your patient. Will follow patient with you. Please call if any Qs Dr Ken Zuñiga Office: [phone] Chief Complaint; cough reason for consult: MAGUI HPI: Pt is a 77 F with hx of diabetes Mellitus ( years), hypertension (years) dementia asthma/copd, ex smoker presented with complaints of cough for last few months but worsening and MAGUI hence renal consulted Denies OTC/herbal meds or NSAIDs No recent iodinated contrast exposure. Noted obvious episodes of low BP. likely with CKD stage 3 with baseline cr as 1.3 pt unable to provide much hx ROS: Cardiovascular: No chest pain. Pulmonary: No shortness of breath Gastrointestinal: denies abdominal pain No nausea. No vomiting. Genitourinary: No pain while urinating. Denies blood in urine. limited from pt due to dementia. Physical Examination: family bedside General Appearance: Comfortable, in no acute respiratory distress, co-operative . Vitals reviewed and noted as below Head; Atraumatic, normocephalic ENT: no ulcers no thrush. Tongue is midline/dry. Oropharynx: no rash or ulcers. EYES: Pupils are equal, round and reactive to light accommodation. Eye muscles and extraocular movement intact. Sclera is anicteric. Neck; supple no lymphadenopathy, no thyromegaly or bruit Lungs: Normal respiratory rate/effort. Breath sounds bilateral equal and clearer Heart: Normal rate. s1s2 normal. No rub or gallop. Extremities: no edema. No varicose veins Neurological: Patient is alert, awake and demented. No focal deficit. Strength bilateral appropriate and equal Skin: Warm and dry. Normal turgor. No rash. Palpitation: Normal elasticity for age Abdomen: Abdomen is soft. Bowel sounds +. There is no abdominal tenderness, no guarding/rigidity no organomegaly Psych: lack insight and normal affect/mood MSK: no joint tenderness or swelling. Digits and nails normal, no deformity : kidney or bladder not palpable Labs/imaging reviewed. Past medical history, past surgical history, family history, social history, allergy reviewed and noted as below Family hx: no hx of CKD. Rest non-contributory Objective - Vital Signs/Intake and Output Vital Signs (last 24 hours): Temp Pulse Resp BP Pulse Ox 98.3 F 99 H 20 93/58 L 95 11/06/17 16:00 11/06/17 16:00 11/06/17 16:00 11/06/17 17:37 11/06/17 16:00 - Medications Medications: Current Medications Albuterol/Ipratropium (Duoneb 3 Mg/0.5 Mg (3 Ml) Ud) 3 ml INH RQ6 [facility] Last Admin: 11/06/17 13:20 Dose: 3 ml Aspirin (Aspirin Chewable) 81 mg PO DAILY [facility] Last Admin: 11/06/17 09:47 Dose: 81 mg Atorvastatin Calcium (Lipitor) 20 mg PO DAILY [facility] Last Admin: 11/06/17 09:47 Dose: 20 mg Azithromycin (Zithromax) 500 mg PO DAILY [facility] PRN Reason: Protocol Last Admin: 11/06/17 14:36 Dose: 500 mg Ferrous Gluconate (Fergon) 324 mg PO TID [facility] Last Admin: 11/06/17 17:34 Dose: 324 mg Furosemide (Lasix) 20 mg IVP BID [facility] Last Admin: 11/06/17 17:37 Dose: Not Given Sodium Chloride (Sodium Chloride 0.9%) 1,000 mls @ 50 mls/hr IV .Q20H [facility] Stop: 11/08/17 19:02 Insulin Human Regular (Humulin R) 0 units SC ACCU-CHECK [facility] PRN Reason: Protocol Last Admin: 11/06/17 17:34 Dose: 6 u Levothyroxine Sodium (Synthroid) 88 mcg PO DAILY [facility] Last Admin: 11/06/17 09:47 Dose: 88 mcg Memantine (Namenda) 10 mg PO BID [facility] Last Admin: 11/06/17 17:37 Dose: 10 mg Methylprednisolone (Solu-Medrol) 60 mg IVP Q8 [facility] Last Admin: 11/06/17 17:38 Dose: 60 mg Mirtazapine (Remeron) 15 mg PO HS [facility] Last Admin: 11/05/17 23:04 Dose: 15 mg Pantoprazole Sodium (Protonix Ec Tab) 40 mg PO DAILY [facility] Last Admin: 11/06/17 09:48 Dose: 40 mg Sertraline HCl (Zoloft) 50 mg PO DAILY [facility] Last Admin: 11/06/17 09:47 Dose: 50 mg Vitamin B Complex/Vit C/Folic Acid (Nephro-Rusty) 1 tab PO DAILY [facility] Last Admin: 11/06/17 09:47 Dose: 1 tab - Labs Labs: 11/06/17 06:20 11/06/17 06:20
[2017-11-07] MEDS: Albuterol-Ipratrop 3 mg / 0.5 (3 ml) UD INH SCH ×4 (01:03→19:09)
[2017-11-07 05:43] LABS: HEMOGLOBIN 9.1 g/dL (12.0-16.0); MEAN CELL VOLUME 87.9 fl (81.0-99.0); MEAN CORPUSCULAR HEMOGLOBIN 29.5 pg (27.0-31.0); MEAN CORPUSCULAR HGB CONC 33.5 g/dL (33.0-37.0); RBC 3.08 Mil/uL (3.80-5.20); WHITE BLOOD COUNT 16.2 K/uL (4.8-10.8)
[2017-11-07 05:54] LABS: ALB/GLOB RATIO 1.2 (1.0-2.1); ALBUMIN 3.8 g/dL (3.5-5.0); CALCIUM 9.2 mg/dL (8.4-10.2)
[2017-11-07] MEDS: Insulin Regular 100 units/ml SC SCH ×4 (06:35→23:00)
[2017-11-07] MEDS: Levothyroxine 88 MCG TAB PO SCH (09:46)
[2017-11-07] MEDS: Pantoprazole 40 mg EC Tab PO SCH (09:47)
[2017-11-07] MEDS: Multivitamin Vitamin B Complex (Nephro-Vite) Tab PO SCH (09:47)
--- NOTE | 2017-11-07 10:02 | CP.PCM.HP ---
History of Present Illness - History of Present Illness History of Present Illness: This is a 77 y/o female admitted for low grade fever , persistent cough and wheezing. for the past few days. She was brought to ER by daughter due to worsening of sx, She was also noted to be more confused and the FBS were elevated initial labs showed elevated FBS and GFR 22. She has been on metformin. Present on Admission - Present on Admission Any Indicators Present on Admission: No History of DVT/PE: No History of Uncontrolled Diabetes: Yes Urinary Catheter: No Decubitus Ulcer Present: No Past Patient History - Past Medical History & Family History Past Medical History?: Yes - Past Social History Smoking Status: Former Smoker - CARDIAC Hx Cardiac Disorders: Yes - PULMONARY Hx Respiratory Disorders: Yes - NEUROLOGICAL Hx Alzheimer's Disease: Yes Hx Dementia: Yes - HEENT Hx HEENT Problems: No - RENAL Hx Chronic Kidney Disease: No - ENDOCRINE/METABOLIC Hx Endocrine Disorders: Yes - HEMATOLOGICAL/ONCOLOGICAL Hx Cancer: Yes - INTEGUMENTARY Hx Dermatological Problems: No - MUSCULOSKELETAL/RHEUMATOLOGICAL Hx Musculoskeletal Disorders: Yes Hx Falls: Yes - GASTROINTESTINAL Hx Gastritis: Yes - GENITOURINARY/GYNECOLOGICAL Hx Genitourinary Disorders: Yes Hx Cervical Cancer: Yes - PSYCHIATRIC Hx Psychophysiologic Disorder: Yes Hx Substance Use: No - SURGICAL HISTORY Hx Hysterectomy: Yes - ANESTHESIA Hx Anesthesia: Yes Hx Anesthesia Reactions: No Hx Malignant Hyperthermia: No Meds Home Medications: Home Medication List Medication Instructions Recorded Confirmed Type Azithromycin [Zithromax] 500 mg PO DAILY #3 tab 11/08/17 Rx Furosemide [Lasix] 20 mg PO DAILY #30 tablet 11/08/17 Rx Methylprednisolone [Medrol Dose 4 mg PO DAILY #21 mg 11/08/17 Rx Pack (21 tabs)] Vitamin B Complex/Vit C/Folic 1 tab PO DAILY #30 tab 11/08/17 Rx [Nephro-Rusty] Allergies/Adverse Reactions: Allergies Allergy/AdvReac Type Severity Reaction Status Date / Time No Known Allergies Allergy Verified 11/05/17 09:52 Physical Exam - Head Exam Head Exam: NORMAL INSPECTION - Eye Exam Eye Exam: Normal appearance - Respiratory Exam Respiratory Exam: Decreased Breath Sounds - Cardiovascular Exam Cardiovascular Exam: REGULAR RHYTHM - GI/Abdominal Exam GI & Abdominal Exam: Normal Bowel Sounds - Neurological Exam Neurological exam: Altered - Psychiatric Exam Psychiatric exam: Anxious Results - Vital Signs Recent Vital Signs: Last Vital Signs Temp 97.5 F L 11/07/17 08:25 Pulse 127 H 11/07/17 08:25 Resp 22 11/07/17 08:25 BP 155/106 H 11/07/17 09:45 Pulse Ox 98 11/07/17 08:25 - Labs Result Diagrams: 11/07/17 04:20 11/07/17 04:20 Labs: Laboratory Results - last 24 hr 11/06/17 11/06/17 11/06/17 06:20 06:20 11:19 WBC RBC Hgb Hct MCV MCH MCHC RDW Plt Count Neutrophils % (Manual) 92 H Lymphocytes % (Manual) 6 L Monocytes % (Manual) 2 Platelet Estimate Normal Anisocytosis (manual) Slight Microcytosis (manual) Slight Ovalocytes Slight Sodium Potassium Chloride Carbon Dioxide Anion Gap BUN Creatinine Est GFR ( Amer) Est GFR (Non-Af Amer) POC Glucose (mg/dL) 221 H Random Glucose Calcium Total Bilirubin AST ALT Alkaline Phosphatase NT-Pro-B Natriuret Pep Total Protein Albumin Globulin Albumin/Globulin Ratio 25-OH Vitamin D Total 31.8 TSH 3rd Generation Urine Color Urine Clarity Urine pH Ur Specific [place] Urine Protein Urine Glucose (UA) Urine Ketones Urine Blood Urine Nitrate Urine Bilirubin Urine Urobilinogen Ur Leukocyte Esterase Urine RBC (Auto) Urine Microscopic WBC Ur Squamous Epith Cells Urine Bacteria Ur Random Creatinine Ur Random Sodium 11/06/17 11/06/17 11/06/17 15:52 16:21 16:21 WBC RBC Hgb Hct MCV MCH MCHC RDW Plt Count Neutrophils % (Manual) Lymphocytes % (Manual) Monocytes % (Manual) Platelet Estimate Anisocytosis (manual) Microcytosis (manual) Ovalocytes Sodium Potassium Chloride Carbon Dioxide Anion Gap BUN Creatinine Est GFR ( Amer) Est GFR (Non-Af Amer) POC Glucose (mg/dL) 287 H Random Glucose Calcium Total Bilirubin AST ALT Alkaline Phosphatase NT-Pro-B Natriuret Pep Total Protein Albumin Globulin Albumin/Globulin Ratio 25-OH Vitamin D Total TSH 3rd Generation Urine Color Yellow Urine Clarity Cloudy Urine pH 5.0 Ur Specific [place] 1.016 Urine Protein 100 Urine Glucose (UA) 50 Urine Ketones Negative Urine Blood Negative Urine Nitrate Negative Urine Bilirubin Negative Urine Urobilinogen 0.2-1.0 Ur Leukocyte Esterase Negative Urine RBC (Auto) 2 Urine Microscopic WBC 2 Ur Squamous Epith Cells 2 Urine Bacteria Rare Ur Random Creatinine 78.2 Ur Random Sodium 73 18 18 11/07/17 21:29 04:20 04:20 WBC 16.2 H D RBC 3.08 L Hgb 9.1 L Hct 27.1 L MCV 87.9 MCH 29.5 MCHC 33.5 RDW 14.0 Plt Count 209 Neutrophils % (Manual) Lymphocytes % (Manual) Monocytes % (Manual) Platelet Estimate Anisocytosis (manual) Microcytosis (manual) Ovalocytes Sodium 141 Potassium 4.1 Chloride 108 H Carbon Dioxide 19 L Anion Gap 18 BUN 42 H Creatinine 2.2 H Est GFR ( Amer) 26 Est GFR (Non-Af Amer) 22 POC Glucose (mg/dL) 218 H Random Glucose 183 H Calcium 9.2 Total Bilirubin 0.5 AST 25 ALT 28 Alkaline Phosphatase 67 NT-Pro-B Natriuret Pep 3220 H Total Protein 7.0 Albumin 3.8 Globulin 3.1 Albumin/Globulin Ratio 1.2 25-OH Vitamin D Total TSH 3rd Generation 0.82 Urine Color Urine Clarity Urine pH Ur Specific [place] Urine Protein Urine Glucose (UA) Urine Ketones Urine Blood Urine Nitrate Urine Bilirubin Urine Urobilinogen Ur Leukocyte Esterase Urine RBC (Auto) Urine Microscopic WBC Ur Squamous Epith Cells Urine Bacteria Ur Random Creatinine Ur Random Sodium 11/07/17 05:32 WBC RBC Hgb Hct MCV MCH MCHC RDW Plt Count Neutrophils % (Manual) Lymphocytes % (Manual) Monocytes % (Manual) Platelet Estimate Anisocytosis (manual) Microcytosis (manual) Ovalocytes Sodium Potassium Chloride Carbon Dioxide Anion Gap BUN Creatinine Est GFR ( Amer) Est GFR (Non-Af Amer) POC Glucose (mg/dL) 198 H Random Glucose Calcium Total Bilirubin AST ALT Alkaline Phosphatase NT-Pro-B Natriuret Pep Total Protein Albumin Globulin Albumin/Globulin Ratio 25-OH Vitamin D Total TSH 3rd Generation Urine Color Urine Clarity Urine pH Ur Specific [place] Urine Protein Urine Glucose (UA) Urine Ketones Urine Blood Urine Nitrate Urine Bilirubin Urine Urobilinogen Ur Leukocyte Esterase Urine RBC (Auto) Urine Microscopic WBC Ur Squamous Epith Cells Urine Bacteria Ur Random Creatinine Ur Random Sodium Assessment & Plan (1) Acute bronchitis Status: Acute (2) CKD (chronic kidney disease) stage 4, GFR 15-29 ml/min Status: Acute (3) Dementia Status: Acute (4) Diabetes mellitus type 2 in nonobese Status: Acute - Assessment and Plan (Free Text) Plan: Cont meds solumedrol neb tx accucheck cont meds
--- NOTE | 2017-11-07 10:03 | CP.PCM.PN ---
Subjective - Date & Time of Evaluation Date of Evaluation: 11/07/17 Time of Evaluation: 10:02 - Subjective Subjective: Noted increase in WBC On high dose of solumedrol continues t be very confused Has no fever. CXR was normal Objective - Vital Signs/Intake and Output Vital Signs (last 24 hours): Temp Pulse Resp BP Pulse Ox 97.5 F L 127 H 22 155/106 H 98 11/07/17 08:25 11/07/17 08:25 11/07/17 08:25 11/07/17 09:45 11/07/17 08:25 - Medications Medications: Current Medications Albuterol/Ipratropium (Duoneb 3 Mg/0.5 Mg (3 Ml) Ud) 3 ml INH RQ6 [facility] Last Admin: 11/07/17 07:40 Dose: 3 ml Aspirin (Aspirin Chewable) 81 mg PO DAILY [facility] Last Admin: 11/07/17 09:46 Dose: 81 mg Atorvastatin Calcium (Lipitor) 20 mg PO DAILY [facility] Last Admin: 11/07/17 09:47 Dose: 20 mg Azithromycin (Zithromax) 500 mg PO DAILY [facility] PRN Reason: Protocol Last Admin: 11/07/17 09:48 Dose: 500 mg Ferrous Gluconate (Fergon) 324 mg PO TID [facility] Last Admin: 11/07/17 09:46 Dose: 324 mg Furosemide (Lasix) 20 mg IVP BID [facility] Last Admin: 11/07/17 09:45 Dose: 20 mg Sodium Chloride (Sodium Chloride 0.9%) 1,000 mls @ 50 mls/hr IV .Q20H [facility] Stop: 11/08/17 19:02 Last Admin: 11/06/17 19:30 Dose: 50 mls/hr Insulin Human Regular (Humulin R) 0 units SC ACCU-CHECK [facility] PRN Reason: Protocol Last Admin: 11/07/17 06:35 Dose: 2 u Levothyroxine Sodium (Synthroid) 88 mcg PO DAILY [facility] Last Admin: 11/07/17 09:46 Dose: 88 mcg Memantine (Namenda) 10 mg PO BID [facility] Last Admin: 11/07/17 09:47 Dose: 10 mg Methylprednisolone (Solu-Medrol) 60 mg IVP Q8 [facility] Last Admin: 11/07/17 09:47 Dose: 60 mg Mirtazapine (Remeron) 15 mg PO HS [facility] Last Admin: 11/06/17 21:23 Dose: 15 mg Pantoprazole Sodium (Protonix Ec Tab) 40 mg PO DAILY [facility] Last Admin: 11/07/17 09:47 Dose: 40 mg Sertraline HCl (Zoloft) 50 mg PO DAILY [facility] Last Admin: 11/07/17 09:46 Dose: 50 mg Vitamin B Complex/Vit C/Folic Acid (Nephro-Rusty) 1 tab PO DAILY [facility] Last Admin: 11/07/17 09:47 Dose: 1 tab - Labs Labs: 11/07/17 04:20 11/07/17 04:20 - Head Exam Head Exam: NORMAL INSPECTION - Eye Exam Eye Exam: Normal appearance - ENT Exam ENT Exam: Mucous Membranes Moist - Respiratory Exam Respiratory Exam: Clear to Ausculation Bilateral - Cardiovascular Exam Cardiovascular Exam: REGULAR RHYTHM - GI/Abdominal Exam GI & Abdominal Exam: Normal Bowel Sounds - Neurological Exam Neurological Exam: Altered - Psychiatric Exam Psychiatric exam: Normal Mood Assessment and Plan (1) Acute bronchitis Status: Acute (2) CKD (chronic kidney disease) stage 4, GFR 15-29 ml/min Status: Acute (3) Dementia Status: Acute (4) Diabetes mellitus type 2 in nonobese Status: Acute - Assessment and Plan (Free Text) Plan: Cont meds Con ttx Cont PT discharge plans taper solumedrol
--- NOTE | 2017-11-07 11:32 | CARD ---
APPROVED REPORT EKG Measurement Heart [id number] <Conclusion> Sinus tachycardia Nonspecific T wave abnormality Abnormal ECG
--- NOTE | 2017-11-07 15:26 | CP.PCM.PN ---
Subjective - Date & Time of Evaluation Date of Evaluation: 11/07/17 Time of Evaluation: 15:24 - Subjective Subjective: Nephrology Consultation Note: Assessment: Stable Acute Kidney Injury (N17.9) likely due to pre-renal/dehydration and low BP: better with IVF Diabetic chronic Kidney Disease (E11.22) Hypertensive Chronic Kidney Disease (I12.9) Chronic Kidney Disease (N18.3) Stage 3 with ? mg proteinuria (R80.9) likely due to ? Anemia (D64.9), HTN (I12.9) COPD exacerbation dementia hypothyroidism Plan No acute need for renal replacement therapy at this time. BP control acceptable with meds as ordered. Patient not on ACEI/ARB due to MAGUI. Monitor Input/Output, daily weights and renal function with basic metabolic panel IVF stopped due to rise in BNP started iron supplements hold metformin for now Dose meds/antibiotics for reduced GFR. Avoid fleets enema/magnesium based laxatives. Avoid nephrotoxins/NSAIDs/ iodinated contrast (unless needed emergently) Glycemic control Further work up/management as per primary team Thanks for allowing me to participate in care of your patient. Will follow patient with you. Please call if any Qs Dr Ken Zuñiga Office: [phone] reason for consult: MAGUI HPI: Pt is a 77 F with hx of diabetes Mellitus ( years), hypertension (years) dementia asthma/copd, ex smoker presented with complaints of cough for last few months but worsening and MAGUI hence renal consulted Denies OTC/herbal meds or NSAIDs No recent iodinated contrast exposure. Noted obvious episodes of low BP. likely with CKD stage 3 with baseline cr as 1.3 pt unable to provide much hx ROS: unable to obtain from pt due to dementia. Physical Examination: on 1:1 ob General Appearance: Comfortable, in no acute respiratory distress, co-operative . Vitals reviewed and noted as below Head; Atraumatic, normocephalic ENT: no ulcers no thrush. Tongue is midline/dry. Oropharynx: no rash or ulcers. EYES: Pupils are equal, round and reactive to light accommodation. Eye muscles and extraocular movement intact. Sclera is anicteric. Neck; supple no lymphadenopathy, no thyromegaly or bruit Lungs: Normal respiratory rate/effort. Breath sounds bilateral equal and clear Heart: Normal rate. s1s2 normal. No rub or gallop. Extremities: no edema. No varicose veins Neurological: Patient is alert, awake and demented. No focal deficit. Strength bilateral appropriate and equal Skin: Warm and dry. Normal turgor. No rash. Palpitation: Normal elasticity for age Abdomen: Abdomen is soft. Bowel sounds +. There is no abdominal tenderness, no guarding/rigidity no organomegaly Psych: lack insight and elevated affect/mood, laughing MSK: no joint tenderness or swelling. Digits and nails normal, no deformity : kidney or bladder not palpable Labs/imaging reviewed. Past medical history, past surgical history, family history, social history, allergy reviewed and noted as below Family hx: no hx of CKD. Rest non-contributory Objective - Vital Signs/Intake and Output Vital Signs (last 24 hours): Temp Pulse Resp BP Pulse Ox 97.5 F L 127 H 22 155/106 H 98 11/07/17 08:25 11/07/17 08:25 11/07/17 08:25 11/07/17 09:45 11/07/17 08:25 - Medications Medications: Current Medications Albuterol/Ipratropium (Duoneb 3 Mg/0.5 Mg (3 Ml) Ud) 3 ml INH RQ6 [facility] Last Admin: 11/07/17 13:21 Dose: 3 ml Aspirin (Aspirin Chewable) 81 mg PO DAILY [facility] Last Admin: 11/07/17 09:46 Dose: 81 mg Atorvastatin Calcium (Lipitor) 20 mg PO DAILY [facility] Last Admin: 11/07/17 09:47 Dose: 20 mg Azithromycin (Zithromax) 500 mg PO DAILY [facility] PRN Reason: Protocol Last Admin: 11/07/17 09:48 Dose: 500 mg Ferrous Gluconate (Fergon) 324 mg PO TID [facility] Last Admin: 11/07/17 09:46 Dose: 324 mg Furosemide (Lasix) 20 mg IVP BID [facility] Last Admin: 11/07/17 09:45 Dose: 20 mg Insulin Human Regular (Humulin R) 0 units SC ACCU-CHECK [facility] PRN Reason: Protocol Last Admin: 11/07/17 06:35 Dose: 2 u Levothyroxine Sodium (Synthroid) 88 mcg PO DAILY [facility] Last Admin: 11/07/17 09:46 Dose: 88 mcg Memantine (Namenda) 10 mg PO BID [facility] Last Admin: 11/07/17 09:47 Dose: 10 mg Methylprednisolone (Solu-Medrol) 40 mg IVP Q12 [facility] Mirtazapine (Remeron) 15 mg PO HS [facility] Last Admin: 11/06/17 21:23 Dose: 15 mg Pantoprazole Sodium (Protonix Ec Tab) 40 mg PO DAILY [facility] Last Admin: 11/07/17 09:47 Dose: 40 mg Sertraline HCl (Zoloft) 50 mg PO DAILY [facility] Last Admin: 11/07/17 09:46 Dose: 50 mg Vitamin B Complex/Vit C/Folic Acid (Nephro-Rusty) 1 tab PO DAILY [facility] Last Admin: 11/07/17 09:47 Dose: 1 tab - Labs Labs: 11/07/17 04:20 11/07/17 04:20
[2017-11-07] MEDS: MethylPREDNISolone 40 mg Vial IVP SCH (22:00)
[2017-11-08] MEDS: Albuterol-Ipratrop 3 mg / 0.5 (3 ml) UD INH SCH ×2 (01:08→07:50)
[2017-11-08] MEDS: Insulin Regular 100 units/ml SC SCH (06:40)
[2017-11-08] MEDS: Multivitamin Vitamin B Complex (Nephro-Vite) Tab PO SCH (08:16)
[2017-11-08] MEDS: Pantoprazole 40 mg EC Tab PO SCH (08:16)
[2017-11-08] MEDS: Levothyroxine 88 MCG TAB PO SCH (08:17)
[2017-11-08] MEDS: MethylPREDNISolone 40 mg Vial IVP SCH (08:17)
--- NOTE | 2017-11-08 08:19 | CARD ---
APPROVED REPORT EXAM: Two-dimensional and M-mode echocardiogram with Doppler and color Doppler. Other Information Quality : GoodRhythm : Tachycardia INDICATION Elevated PROBnp 2D DIMENSIONS IVSd0.88 (0.7-1.1cm)LVDd4.33 (3.9-5.9cm) LVOT Diameter1.93 (1.8-2.4cm)PWd1.01 (0.7-1.1cm) IVSs1.17 (0.8-1.2cm)LVDs3.77 (2.5-4.0cm) FS (%) 13.0 %PWs1.24 (0.8-1.2cm) M-Mode DIMENSIONS Left Atrium (MM)3.15 (2.5-4.0cm)IVSd0.82 (0.7-1.1cm) Aortic Root3.24 (2.2-3.7cm)LVDd5.88 (4.0-5.6cm) Aortic Cusp Exc.1.35 (1.5-2.0cm)PWd0.97 (0.7-1.1cm) IVSs1.24 cmFS (%) 35 % LVDs3.82 (2.0-3.8cm)PWs1.47 cm Mitral Valve E/A ratio0.0 TDI E/Lateral E'0.0E/Medial E'0.0 Pulmonary Valve PV Peak [id number]/s Tricuspid Valve TR Peak [id number] [id number] Peak Gr.20mmHg [id number] LEFT VENTRICLE The left ventricle is normal size. There is normal left ventricular wall thickness. Left ventricle systolic function is normal. The Ejection Fraction is 55-60%. Basal 1/3 of inferior wall was moderately hypokinetic Other LV segments contracted normally. Transmitral Doppler flow pattern is Grade I-abnormal relaxation pattern. RIGHT VENTRICLE The right ventricle is normal size. There is normal right ventricular wall thickness. The right ventricular systolic function is normal. ATRIA The left atrium size is normal. The right atrium size is normal. AORTIC VALVE The aortic valve is mildly sclerotic. No aortic regurgitation is present. There is no aortic valvular stenosis. MITRAL VALVE The mitral valve is normal in structure. There is no evidence of mitral valve prolapse. There is no mitral valve stenosis. Mitral regurgitation is trace. TRICUSPID VALVE The tricuspid valve is normal in structure. There is trace tricuspid regurgitation. Right ventricular systolic pressure is estimated at 31 mmHg. There is no pulmonary hypertension. PULMONIC VALVE The pulmonary valve is normal in structure. There is no pulmonic valvular regurgitation. GREAT VESSELS The aortic root is normal in size. The IVC is normal in size and collapses >50% with inspiration. PERICARDIAL EFFUSION The pericardium appears normal. <Conclusion> The left ventricle is normal size. There is normal left ventricular wall thickness. Basal 1/3 of inferior wall was moderately hypokinetic Other LV segments contracted normally. Left ventricle systolic function is normal. The Ejection Fraction is 55-60%. Transmitral Doppler flow pattern is Grade I-abnormal relaxation pattern.
[2017-11-08 08:25] VITALS: BP 116/62
[2017-11-08 08:47] VITALS: PULSE 100; RESP 20; TEMP 98.8; O2SAT 97
--- NOTE | 2017-11-08 12:15 | CP.PCM.PN ---
Subjective - Date & Time of Evaluation Date of Evaluation: 11/08/17 Time of Evaluation: 12:13 - Subjective Subjective: patient feeling much better no chest pain no nausea no vomiting eating well Objective - Vital Signs/Intake and Output Vital Signs (last 24 hours): Temp Pulse Resp BP Pulse Ox 98.8 F 100 H 20 116/62 97 11/08/17 08:00 11/08/17 08:00 11/08/17 08:00 11/08/17 08:20 11/08/17 08:00 - Medications Medications: Current Medications Albuterol/Ipratropium (Duoneb 3 Mg/0.5 Mg (3 Ml) Ud) 3 ml INH RQ6 [facility] Last Admin: 11/08/17 07:50 Dose: 3 ml Aspirin (Aspirin Chewable) 81 mg PO DAILY [facility] Last Admin: 11/08/17 08:16 Dose: 81 mg Atorvastatin Calcium (Lipitor) 20 mg PO DAILY [facility] Last Admin: 11/08/17 08:17 Dose: 20 mg Azithromycin (Zithromax) 500 mg PO DAILY [facility] PRN Reason: Protocol Last Admin: 11/08/17 08:16 Dose: 500 mg Ferrous Gluconate (Fergon) 324 mg PO TID [facility] Last Admin: 11/08/17 08:16 Dose: 324 mg Furosemide (Lasix) 20 mg IVP BID [facility] Last Admin: 11/08/17 08:20 Dose: 20 mg Insulin Human Regular (Humulin R) 0 units SC ACCU-CHECK [facility] PRN Reason: Protocol Last Admin: 11/08/17 06:40 Dose: Not Given Levothyroxine Sodium (Synthroid) 88 mcg PO DAILY [facility] Last Admin: 11/08/17 08:17 Dose: 88 mcg Memantine (Namenda) 10 mg PO BID [facility] Last Admin: 11/08/17 08:16 Dose: 10 mg Methylprednisolone (Solu-Medrol) 40 mg IVP Q12 [facility] Last Admin: 11/08/17 08:17 Dose: 40 mg Mirtazapine (Remeron) 15 mg PO HS [facility] Last Admin: 11/07/17 22:40 Dose: 15 mg Pantoprazole Sodium (Protonix Ec Tab) 40 mg PO DAILY [facility] Last Admin: 11/08/17 08:16 Dose: 40 mg Sertraline HCl (Zoloft) 50 mg PO DAILY [facility] Last Admin: 11/08/17 08:17 Dose: 50 mg Vitamin B Complex/Vit C/Folic Acid (Nephro-Rusty) 1 tab PO DAILY [facility] Last Admin: 11/08/17 08:16 Dose: 1 tab - Labs Labs: 11/07/17 04:20 11/07/17 04:20 - Constitutional Appears: No Acute Distress - ENT Exam ENT Exam: Mucous Membranes Moist - Neck Exam Neck Exam: absent: Lymphadenopathy - Respiratory Exam Respiratory Exam: NORMAL BREATHING PATTERN. absent: Chest Wall Tenderness - Cardiovascular Exam Cardiovascular Exam: absent: Gallop, JVD, Rubs - GI/Abdominal Exam GI & Abdominal Exam: Soft, Normal Bowel Sounds - Extremities Exam Extremities Exam: absent: Calf Tenderness - Back Exam Back Exam: absent: CVA tenderness (L), CVA tenderness (R) - Neurological Exam Neurological Exam: Alert - Psychiatric Exam Psychiatric exam: Normal Affect - Skin Skin Exam: absent: Cyanosis Assessment and Plan (1) MAGUI (acute kidney injury) Assessment & Plan: Acute Kidney Injury (N17.9) likely due to pre-renal/dehydration and low BP: better with IVF Diabetic chronic Kidney Disease (E11.22) Hypertensive Chronic Kidney Disease (I12.9) Chronic Kidney Disease (N18.3) Stage 3 with ? mg proteinuria (R80.9) likely due to ? Anemia (D64.9), HTN (I12.9) COPD exacerbation dementia hypothyroidism the plan Patient is improving serum creatinine coming down slowly. Patient apparently going home and follow-up as outpatient Status: Acute
--- NOTE | 2017-11-08 18:59 | CP.PCM.DIS ---
<Marilu Resendiz - Last Filed: 11/08/17 22:28> Provider - Provider Date of Admission: 11/06/17 12:24 Attending physician: Hayden Lebron MD Primary care physician: Jonel Anand Consults: Dr. Garcia Time Spent in preparation of Discharge (in minutes): 30 Diagnosis - Discharge Diagnosis (1) COPD exacerbation Status: Resolved Priority: Low (2) MAGUI (acute kidney injury) Status: Acute Priority: Low Hospital Course - Lab Results Lab Results: Micro Results 11/05/17 10:30 Blood Blood Culture - Preliminary NO GROWTH AFTER 3 DAYS Most Recent Lab Values WBC 16.2 K/uL (4.8-10.8) H D 11/07/17 04:20 RBC 3.08 Mil/uL (3.80-5.20) L 11/07/17 04:20 Hgb 9.1 g/dL (12.0-16.0) L 11/07/17 04:20 Hct 27.1 % (34.0-47.0) L 11/07/17 04:20 MCV 87.9 fl (81.0-99.0) 11/07/17 04:20 MCH 29.5 pg (27.0-31.0) 11/07/17 04:20 MCHC 33.5 g/dL (33.0-37.0) 11/07/17 04:20 RDW 14.0 % (11.5-14.5) 11/07/17 04:20 Plt Count 209 K/uL (130-400) 11/07/17 04:20 MPV 9.2 fl (7.2-11.7) 11/06/17 06:20 Neut % (Auto) 93.8 % (50.0-75.0) H 11/06/17 06:20 Lymph % (Auto) 5.0 % (20.0-40.0) L 11/06/17 06:20 [place] % (Auto) 1.1 % (0.0-10.0) 11/06/17 06:20 Eos % (Auto) 0.0 % (0.0-4.0) 11/06/17 06:20 Baso % (Auto) 0.1 % (0.0-2.0) 11/06/17 06:20 Neut # (Auto) 9.4 K/uL (1.8-7.0) H 11/06/17 06:20 Lymph # (Auto) 0.5 K/uL (1.0-4.3) L 11/06/17 06:20 [place] # (Auto) 0.1 K/uL (0.0-0.8) 11/06/17 06:20 Eos # (Auto) 0.0 K/uL (0.0-0.7) 11/06/17 06:20 Baso # (Auto) 0.0 K/uL (0.0-0.2) 11/06/17 06:20 Neutrophils % (Manual) 92 % (42-75) H 11/06/17 06:20 Lymphocytes % (Manual) 6 % (20-50) L 11/06/17 06:20 Reactive Lymphs % 1 % (0-0) H 11/05/17 10:26 Monocytes % (Manual) 2 % (0-10) 11/06/17 06:20 Eosinophils % (Manual) 1 % (0-7) 11/05/17 10:26 Platelet Estimate Normal (NORMAL) 11/06/17 06:20 Large Platelets Present 11/05/17 10:26 Giant Platelets Present 11/05/17 10:26 Hypochromasia (manual) Slight 11/05/17 10:26 Anisocytosis (manual) Slight 11/06/17 06:20 Microcytosis (manual) Slight 11/06/17 06:20 Ovalocytes Slight 11/06/17 06:20 Sodium 141 mmol/l (132-148) 11/07/17 04:20 Potassium 4.1 MMOL/L (3.6-5.0) 11/07/17 04:20 Chloride 108 mmol/L (98-107) H 11/07/17 04:20 Carbon Dioxide 19 mmol/L (22-30) L 11/07/17 04:20 Anion Gap 18 (10-20) 11/07/17 04:20 BUN 42 mg/dl (7-17) H 11/07/17 04:20 Creatinine 2.2 mg/dl (0.7-1.2) H 11/07/17 04:20 Est GFR ( Amer) 11/07/17 04:20 Est GFR (Non-Af Amer) 22 11/07/17 04:20 POC Glucose (mg/dL) 228 mg/dL (65-110) H 11/08/17 06:15 Random Glucose 183 mg/dL (65-105) H 11/07/17 04:20 Uric Acid 6.6 mg/Dl (2.2-7.5) 11/05/17 18:52 Calcium 9.2 mg/dL (8.4-10.2) 11/07/17 04:20 Phosphorus 3.6 mg/dl (2.5-4.5) 11/06/17 06:20 Magnesium 2.1 MG/DL (1.6-2.3) 11/06/17 06:20 Iron 17 ug/dL (37-170) L 11/05/17 18:52 TIBC 318 ug/dL (250-450) 11/05/17 18:52 % Saturation 5 % (20-55) L 11/05/17 18:52 Ferritin 45.2 ng/Ml (11.1-264.0) 11/05/17 18:52 Total Bilirubin 0.5 mg/dl (0.2-1.3) 11/07/17 04:20 AST 25 U/L (14-36) 11/07/17 04:20 ALT 28 U/L (9-52) 11/07/17 04:20 Alkaline Phosphatase 67 U/L (38-126) 11/07/17 04:20 Total Creatine Kinase 71 U/L (30-135) 11/05/17 18:52 NT-Pro-B Natriuret Pep 3220 pg/ml (0-900) H 11/07/17 04:20 Total Protein 7.0 G/DL (6.3-8.2) 11/07/17 04:20 Albumin 3.8 g/dL (3.5-5.0) 11/07/17 04:20 Globulin 3.1 gm/dL (2.2-3.9) 11/07/17 04:20 Albumin/Globulin Ratio 1.2 (1.0-2.1) 11/07/17 04:20 25-OH Vitamin D Total 31.8 NG/ML (30.0-100.0) 11/06/17 06:20 TSH 3rd Generation 0.82 mIU/ML (0.46-4.68) 11/07/17 04:20 PTH Intact Whole Molec 73 pg/mL (14-64) H 11/06/17 06:20 Urine Color Yellow (YELLOW) 11/06/17 16:21 Urine Clarity Cloudy (Clear) 11/06/17 16:21 Urine pH 5.0 (5.0-8.0) 11/06/17 16:21 Ur Specific [place] 1.016 (1.003-1.030) 11/06/17 16:21 Urine Protein 100 mg/dL (NEGATIVE) 11/06/17 16:21 Urine Glucose (UA) 50 mg/dL (Normal) 11/06/17 16:21 Urine Ketones Negative mg/dL (NEGATIVE) 11/06/17 16:21 Urine Blood Negative (NEGATIVE) 11/06/17 16:21 Urine Nitrate Negative (NEGATIVE) 11/06/17 16:21 Urine Bilirubin Negative (NEGATIVE) 11/06/17 16:21 Urine Urobilinogen 0.2-1.0 mg/dL (0.2-1.0) 11/06/17 16:21 Ur Leukocyte Esterase Negative Tony/uL (Negative) 11/06/17 16:21 Urine RBC (Auto) 2 /hpf (0-3) 11/06/17 16:21 Urine Microscopic WBC 2 /hpf (0-5) 11/06/17 16:21 Ur Squamous Epith Cells 2 /hpf (0-5) 11/06/17 16:21 Urine Bacteria Rare (<OCC) 11/06/17 16:21 Ur Random Creatinine 78.2 mg/dL 11/06/17 16:21 Ur Random Sodium 73 mmol/L 11/06/17 16:21 Urine Total Volume 7.3 mg/dL 11/05/17 16:21 Microalb/Creat Ratio 75 (<30) H 11/05/17 16:21 - Hospital Course Hospital Course: 77 yr old F admitted for worsening low grade fever, cough and wheezing, found to have COPD exacerbation and acute kidney injury. Patient improved s/p treatment with IV steroids, IV antibiotics, IV fluids and lasix. Patient was evaluated by nephrology. Patient was discharged stable with instructions to follow up with PMD and nephrology as outpatient, take medications as prescribed. - Date & Time of H&P Date of H&P: 11/06/17 Time of H&P: 10:00 Discharge Exam - Head Exam Head Exam: ATRAUMATIC, NORMOCEPHALIC - ENT Exam ENT Exam: Mucous Membranes Moist - Respiratory Exam Respiratory Exam: Clear to PA & Lateral, NORMAL BREATHING PATTERN - Cardiovascular Exam Cardiovascular Exam: REGULAR RHYTHM - GI/Abdominal Exam GI & Abdominal Exam: Normal Bowel Sounds - Neurological Exam Neurological exam: Alert, Oriented x3 - Skin Skin Exam: Dry, Normal Color, Warm Discharge Plan - Discharge Medications Prescriptions: Furosemide [Lasix] 20 mg PO DAILY #30 tablet Methylprednisolone [Medrol Dose Pack (21 tabs)] 4 mg PO DAILY #21 mg Vitamin B Complex/Vit C/Folic [Nephro-Rusty] 1 tab PO DAILY #30 tab - Follow Up Plan Condition: FAIR Disposition: HOME/ ROUTINE Instructions: Asthma, Adult (DC), Dementia (DC) Additional Instructions: follow up with in 1 week I was present during evaluation and discussed with Dr Martín aleman plans of care and tx and discharge plans. Hayden Lebron M.D. Referrals: Jonel Jerry MD [Family Provider] - <Hayden Lebron - Last Filed: 11/09/17 12:48> Provider - Provider Date of Admission: 11/06/17 12:24 Attending physician: Hayden Lebron MD Diagnosis - Discharge Diagnosis (1) Acute bronchitis Status: Acute (2) CKD (chronic kidney disease) stage 4, GFR 15-29 ml/min Status: Acute (3) Dementia Status: Acute (4) Diabetes mellitus type 2 in nonobese Status: Acute Hospital Course - Lab Results Lab Results: Micro Results 11/05/17 10:30 Blood Blood Culture - Preliminary NO GROWTH AFTER 4 DAYS Most Recent Lab Values WBC 16.2 K/uL (4.8-10.8) H D 11/07/17 04:20 RBC 3.08 Mil/uL (3.80-5.20) L 11/07/17 04:20 Hgb 9.1 g/dL (12.0-16.0) L 11/07/17 04:20 Hct 27.1 % (34.0-47.0) L 11/07/17 04:20 MCV 87.9 fl (81.0-99.0) 11/07/17 04:20 MCH 29.5 pg (27.0-31.0) 11/07/17 04:20 MCHC 33.5 g/dL (33.0-37.0) 11/07/17 04:20 RDW 14.0 % (11.5-14.5) 11/07/17 04:20 Plt Count 209 K/uL (130-400) 11/07/17 04:20 MPV 9.2 fl (7.2-11.7) 11/06/17 06:20 Neut % (Auto) 93.8 % (50.0-75.0) H 11/06/17 06:20 Lymph % (Auto) 5.0 % (20.0-40.0) L 11/06/17 06:20 [place] % (Auto) 1.1 % (0.0-10.0) 11/06/17 06:20 Eos % (Auto) 0.0 % (0.0-4.0) 11/06/17 06:20 Baso % (Auto) 0.1 % (0.0-2.0) 11/06/17 06:20 Neut # (Auto) 9.4 K/uL (1.8-7.0) H 11/06/17 06:20 Lymph # (Auto) 0.5 K/uL (1.0-4.3) L 11/06/17 06:20 [place] # (Auto) 0.1 K/uL (0.0-0.8) 11/06/17 06:20 Eos # (Auto) 0.0 K/uL (0.0-0.7) 11/06/17 06:20 Baso # (Auto) 0.0 K/uL (0.0-0.2) 11/06/17 06:20 Neutrophils % (Manual) 92 % (42-75) H 11/06/17 06:20 Lymphocytes % (Manual) 6 % (20-50) L 11/06/17 06:20 Reactive Lymphs % 1 % (0-0) H 11/05/17 10:26 Monocytes % (Manual) 2 % (0-10) 11/06/17 06:20 Eosinophils % (Manual) 1 % (0-7) 11/05/17 10:26 Platelet Estimate Normal (NORMAL) 11/06/17 06:20 Large Platelets Present 11/05/17 10:26 Giant Platelets Present 11/05/17 10:26 Hypochromasia (manual) Slight 11/05/17 10:26 Anisocytosis (manual) Slight 11/06/17 06:20 Microcytosis (manual) Slight 11/06/17 06:20 Ovalocytes Slight 11/06/17 06:20 Sodium 141 mmol/l (132-148) 11/07/17 04:20 Potassium 4.1 MMOL/L (3.6-5.0) 11/07/17 04:20 Chloride 108 mmol/L (98-107) H 11/07/17 04:20 Carbon Dioxide 19 mmol/L (22-30) L 11/07/17 04:20 Anion Gap 18 (10-20) 11/07/17 04:20 BUN 42 mg/dl (7-17) H 11/07/17 04:20 Creatinine 2.2 mg/dl (0.7-1.2) H 11/07/17 04:20 Est GFR ( Amer) 11/07/17 04:20 Est GFR (Non-Af Amer) 22 11/07/17 04:20 POC Glucose (mg/dL) 228 mg/dL (65-110) H 11/08/17 06:15 Random Glucose 183 mg/dL (65-105) H 11/07/17 04:20 Uric Acid 6.6 mg/Dl (2.2-7.5) 11/05/17 18:52 Calcium 9.2 mg/dL (8.4-10.2) 11/07/17 04:20 Phosphorus 3.6 mg/dl (2.5-4.5) 11/06/17 06:20 Magnesium 2.1 MG/DL (1.6-2.3) 11/06/17 06:20 Iron 17 ug/dL (37-170) L 11/05/17 18:52 TIBC 318 ug/dL (250-450) 11/05/17 18:52 % Saturation 5 % (20-55) L 11/05/17 18:52 Ferritin 45.2 ng/Ml (11.1-264.0) 11/05/17 18:52 Total Bilirubin 0.5 mg/dl (0.2-1.3) 11/07/17 04:20 AST 25 U/L (14-36) 11/07/17 04:20 ALT 28 U/L (9-52) 11/07/17 04:20 Alkaline Phosphatase 67 U/L (38-126) 11/07/17 04:20 Total Creatine Kinase 71 U/L (30-135) 11/05/17 18:52 NT-Pro-B Natriuret Pep 3220 pg/ml (0-900) H 11/07/17 04:20 Total Protein 7.0 G/DL (6.3-8.2) 11/07/17 04:20 Albumin 3.8 g/dL (3.5-5.0) 11/07/17 04:20 Globulin 3.1 gm/dL (2.2-3.9) 11/07/17 04:20 Albumin/Globulin Ratio 1.2 (1.0-2.1) 11/07/17 04:20 25-OH Vitamin D Total 31.8 NG/ML (30.0-100.0) 11/06/17 06:20 TSH 3rd Generation 0.82 mIU/ML (0.46-4.68) 11/07/17 04:20 PTH Intact Whole Molec 73 pg/mL (14-64) H 11/06/17 06:20 Urine Color Yellow (YELLOW) 11/06/17 16:21 Urine Clarity Cloudy (Clear) 11/06/17 16:21 Urine pH 5.0 (5.0-8.0) 11/06/17 16:21 Ur Specific [place] 1.016 (1.003-1.030) 11/06/17 16:21 Urine Protein 100 mg/dL (NEGATIVE) 11/06/17 16:21 Urine Glucose (UA) 50 mg/dL (Normal) 11/06/17 16:21 Urine Ketones Negative mg/dL (NEGATIVE) 11/06/17 16:21 Urine Blood Negative (NEGATIVE) 11/06/17 16:21 Urine Nitrate Negative (NEGATIVE) 11/06/17 16:21 Urine Bilirubin Negative (NEGATIVE) 11/06/17 16:21 Urine Urobilinogen 0.2-1.0 mg/dL (0.2-1.0) 11/06/17 16:21 Ur Leukocyte Esterase Negative Tony/uL (Negative) 11/06/17 16:21 Urine RBC (Auto) 2 /hpf (0-3) 11/06/17 16:21 Urine Microscopic WBC 2 /hpf (0-5) 11/06/17 16:21 Ur Squamous Epith Cells 2 /hpf (0-5) 11/06/17 16:21 Urine Bacteria Rare (<OCC) 11/06/17 16:21 Ur Random Creatinine 78.2 mg/dL 11/06/17 16:21 Ur Random Sodium 73 mmol/L 11/06/17 16:21 Urine Total Volume 7.3 mg/dL 11/05/17 16:21 Microalb/Creat Ratio 75 (<30) H 11/05/17 16:21
== END 2017-11-08 12:18 | disposition home or self-care (01) | DRG 683 ==
LOC: H.ER 09:20 → H.ERHOLD 11:44 → H.TEL 14:15 → OBSVTOIN 11-06 12:24
PROVIDERS: ADMIT Family Medicine; ATTEND Family Medicine
DX: N17.9 Acute kidney failure, unspecified (principal); J44.1 Chronic obstructive pulmonary disease with (acute) exacerbation; J44.0 Chronic obstructive pulmonary disease with (acute) lower respiratory infection; N18.4 Chronic kidney disease, stage 4 (severe); J20.9 Acute bronchitis, unspecified; Z87.891 Personal history of nicotine dependence; I12.9 Hypertensive chronic kidney disease with stage 1 through stage 4 chronic kidney disease, or unspecified chronic kidney disease; E86.0 Dehydration; E11.22 Type 2 diabetes mellitus with diabetic chronic kidney disease; E03.9 Hypothyroidism, unspecified; D64.9 Anemia, unspecified; G30.9 Alzheimer's disease, unspecified; F02.80 Dementia in other diseases classified elsewhere, unspecified severity, without behavioral disturbance, psychotic disturbance, mood disturbance, and anxiety; E78.00 Pure hypercholesterolemia, unspecified; K29.70 Gastritis, unspecified, without bleeding; M19.90 Unspecified osteoarthritis, unspecified site

== ENCOUNTER 2017-11-21 13:13 | Inpatient (IN) | payer MEDICARE, MEDICAID ==
[2017-11-21] MEDS ORDERED: Sodium Chloride 0.9% 1,000 ML IV STA (14:00)
[2017-11-21 14:31] LABS: VENOUS BLOOD GAS BASE EXCESS 0.5 mmol/L (0.0-2.0); VENOUS BLOOD GAS PCO2 50 mmHg (40-60); VENOUS BLOOD GAS PO2 25 mm/Hg (30-55); VENOUS BLOOD PH 7.34 (7.32-7.43)
[2017-11-21 14:37] LABS: BASO # 0.1 K/uL (0.0-0.2); BASO % 0.6 % (0.0-2.0); EOS # 0.1 K/uL (0.0-0.7); EOS % 1.2 % (0.0-4.0); HEMOGLOBIN 12.5 g/dL (12.0-16.0); LYMPH # 1.9 K/uL (1.0-4.3); LYMPH % 18.5 % (20.0-40.0); MEAN CELL VOLUME 89.4 fl (81.0-99.0); MEAN CORPUSCULAR HEMOGLOBIN 29.5 pg (27.0-31.0); MEAN PLATELET VOLUME 8.7 fl (7.2-11.7); MONO # 0.9 K/uL (0.0-0.8); MONO % 8.2 % (0.0-10.0); NEUT # 7.5 K/uL (1.8-7.0); NEUT % 71.5 % (50.0-75.0); RBC 4.23 Mil/uL (3.80-5.20); RED CELL DISTRIBUTION WIDTH 14.8 % (11.5-14.5); WHITE BLOOD COUNT 10.5 K/uL (4.8-10.8)
--- NOTE | 2017-11-21 14:45 | RAD ---
HISTORY: weakness COMPARISON: Chest radiograph dated 11/05/2017. FINDINGS: LUNGS: No active pulmonary disease. PLEURA: No significant pleural effusion identified, no pneumothorax apparent. CARDIOVASCULAR: Atherosclerotic aortic calcifications. Cardiomediastinal silhouette stably prominent. OSSEOUS STRUCTURES: Unchanged. VISUALIZED UPPER ABDOMEN: Normal. OTHER FINDINGS: None. IMPRESSION: No active disease.
--- NOTE | 2017-11-21 14:56 | ED PDOC ---
HPI: Altered Mental Status Time Seen by Provider: 11/21/17 13:43 Chief Complaint (Nursing): Weakness/Neurological Deficit Chief Complaint (Provider): appetite History Per: EMS, Other (friend and previous chart) History/Exam Limitations: Clinical Condition (dementia) Current Symptoms Are (Timing): Still Present Additional Complaint(s): 77 year old female presents to the ED with friend via EMS for decreased appetite for the last 3 days. Patient is a limited historian due to history of dementia. History was obtained from EMS, chart, and friend who is here today. Friend reports that for the last 3 days, patient has not been eating well and sleeping during the day and night and not walking. Friend denies fever, diarrhea, and vomiting. PCP obtained from previous charts and prescription bottles. PCP: Dr. Jonel Jerry Past Medical History Reviewed: Historical Data, Nursing Documentation, Vital Signs Vital Signs: Last Vital Signs Temp 97.4 F L 11/21/17 13:36 Pulse 94 H 11/21/17 13:36 Resp 18 11/21/17 13:36 BP 101/49 L 11/21/17 13:36 Pulse Ox 96 11/21/17 13:36 - Medical History PMH: Alzheimer's Disease, Arthritis, Asthma, Dementia, Diabetes, Gastritis, HTN , Hypercholesterolemia, Hypothyroidism Denies: Chronic Kidney Disease Other PMH: Chronic renal failure - Surgical History Other surgeries: Hysterectomy - Family History Family History: States: Unknown Family Hx - Home Medications Home Medications: Ambulatory Orders Medication Instructions Recorded Enalapril Maleate [Vasotec] 20 mg PO DAILY 02/28/17 Memantine HCl [Namenda Xr] 28 mg PO DAILY 02/28/17 Omeprazole 20 mg PO DAILY 02/28/17 Sertraline HCl 50 mg PO DAILY 02/28/17 amLODIPine [Norvasc] 10 mg PO DAILY 02/28/17 Cyproheptadine HCl 4 mg PO DAILY 11/05/17 Rosuvastatin Calcium [Crestor] 10 mg PO DAILY 11/05/17 Furosemide [Lasix] 20 mg PO DAILY #30 tablet 11/08/17 Vitamin B Complex/Vit C/Folic 1 tab PO DAILY #30 tab 11/08/17 [Nephro-Rusty] Glipizide [Glipizide Xl] 5 mg PO DAILY 11/21/17 Linagliptin [Tradjenta] 5 mg PO DAILY 11/21/17 - Allergies Allergies/Adverse Reactions: Allergies Allergy/AdvReac Type Severity Reaction Status Date / Time No Known Allergies Allergy Verified 11/21/17 13:18 Review of Systems ROS Statement: Except As Marked, All Systems Reviewed And Found Negative Constitutional: Positive for: Other (Sleeping throughout the day). Negative for : Fever Gastrointestinal: Positive for: Other (decreased appetite). Negative for: Vomiting, Diarrhea Physical Exam - Reviewed Nursing Documentation Reviewed: Yes Vital Signs Reviewed: Yes - Physical Exam Appears: Positive for: No Acute Distress. Negative for: Uncomfortable ( Comfortable) Head Exam: Positive for: ATRAUMATIC, NORMAL INSPECTION, NORMOCEPHALIC Skin: Positive for: Normal Color, Warm, Dry Eye Exam: Positive for: Normal appearance, EOMI, PERRL ENT: Positive for: Other (Mucous membranes dry) Neck: Positive for: Normal, Painless ROM Cardiovascular/Chest: Positive for: Tachycardia (mild) Respiratory: Positive for: Normal Breath Sounds. Negative for: Wheezing, Respiratory Distress Gastrointestinal/Abdominal: Positive for: Normal Exam, Soft. Negative for: Tenderness Extremity: Positive for: Normal ROM Neurologic/Psych: Positive for: Oriented (x1), Other (somnolent but easily arousable) - Laboratory Results Result Diagrams: 11/23/17 06:05 11/23/17 06:05 - ECG O2 Sat by Pulse Oximetry: 96 (RA) Pulse Ox Interpretation: Normal Medical Decision Making Medical Decision Making: Initial Impression: Altered mental status, decreased appetite. Differentials include but not limited to UTI, acute renal failure due to dehydration, electrolyte abnormalities. r/o CVA, progressive dementia, and sepsis. Initial Plan: Venous blood gas Head CT ECG CMP CBC Chest X-ray Sodium chloride 1000mL IV Blood Culture Urine Culture Catheter Urinalysis 14:44 Chest X-ray FINDINGS: LUNGS: No active pulmonary disease. PLEURA: No significant pleural effusion identified, no pneumothorax apparent. CARDIOVASCULAR: Atherosclerotic aortic calcifications. Cardiomediastinal silhouette stably prominent. OSSEOUS STRUCTURES: Unchanged. VISUALIZED UPPER ABDOMEN: Normal. OTHER FINDINGS: None. IMPRESSION: No active disease. 15:[address] FINDINGS: HEMORRHAGE: No intracranial hemorrhage. BRAIN: No mass effect or edema. Moderate periventricular white matter lucency with patchy and confluent deep/ subcortical white matter lucency consistent with chronic microvascular ischemic change. No evidence of acute infarct VENTRICLES: Unremarkable. No hydrocephalus. CALVARIUM: Unremarkable. PARANASAL SINUSES: Air-fluid level in left maxillary antrum may reflect acute sinusitis. Correlate clinically. MASTOID AIR CELLS: Unremarkable as visualized. No inflammatory changes. OTHER FINDINGS: None. IMPRESSION: No intracranial mass, hemorrhage or evidence of acute infarct. Chronic white matter ischemic change. Air-fluid level in left maxillary sinus may reflect acute sinusitis. 17:[address] Lebron. Patient will be admitted for dehydration, dementia, and acute renal failure. Scribe Attestation: Documented by Temo Gonzalez acting as a scribe for Dank Nina MD. Provider Scribe Attestation: All medical record entries made by the Scribe were at my direction and personally dictated by me. I have reviewed the chart and agree that the record accurately reflects my personal performance Disposition - Clinical Impression Clinical Impression: Dementia, Dehydration, Failure to thrive in adult, MAGUI (acute kidney injury) - Patient ED Disposition Is Patient to be Admitted: Yes Discussed With DrEthan: Hayden Lebron Doctor Will See Patient In The: Hospital Counseled Patient/Family Regarding: Studies Performed, Diagnosis - Disposition Disposition Time: 16:40 Condition: FAIR - Pt Status Changed To: Hospital Disposition Of: Inpatient - Admit Certification Admit to Inpatient:: After my assessment, the patient will require hospitalization for at least two midnights. This is because of the severity of symptoms shown, intensity of services needed, and/or the medical risk in this patient being treated as an outpatient. - POA Present On Arrival: None
[2017-11-21 14:58] LABS: SQUAMOUS EPITHIAL 5 /hpf (0-5); URINE BILIRUBIN NEGATIVE (NEGATIVE); URINE BLOOD NEGATIVE (NEGATIVE); URINE CLARITY SLIGHTY-CLOUDY (Clear); URINE COLOR YELLOW (YELLOW); URINE GLUCOSE (UA) NEG (Normal); URINE LEUKOCYTE ESTERASE TRACE Leu/uL (Negative); URINE PROTEIN 30 mg/dL (NEGATIVE); URINE UROBILINOGEN 0.2-1.0 mg/dL (0.2-1.0)
[2017-11-21 14:59] LABS: ALB/GLOB RATIO 1.1 (1.0-2.1); ALBUMIN 4.4 g/dL (3.5-5.0); CALCIUM 10.7 mg/dL (8.4-10.2)
[2017-11-21 15:46] LABS: ALB/GLOB RATIO 1.2 (1.0-2.1); ALBUMIN 4.1 g/dL (3.5-5.0); CALCIUM 10.6 mg/dL (8.4-10.2)
[2017-11-21] MEDS ORDERED: Dextrose 50% SYRINGE Inj (50 ml) IVP ONE (16:24)
[2017-11-21] MEDS ORDERED: Insulin Regular 100 units/ml IV STA (16:24)
[2017-11-21] MEDS ORDERED: Dextrose 50% SYRINGE Inj (50 ml) ONE (17:16)
[2017-11-21] MEDS ORDERED: Insulin Regular 100 units/ml ONE (17:17)
[2017-11-21] MEDS ORDERED: Dextrose 5%/Lactated Ringer's 1,000 ML IV SCH (19:00)
[2017-11-21] MEDS: Dextrose 5%/0.9% NS 1,000 ML IV SCH (19:58)
[2017-11-21] MEDS: Insulin Regular 100 units/ml SC SCH (21:57)
--- NOTE | 2017-11-22 06:08 | CARD ---
APPROVED REPORT EKG Measurement Heart [id number] <Conclusion> Normal sinus rhythm Normal ECG
[2017-11-22 06:34] LABS: HEMOGLOBIN 11.5 g/dL (12.0-16.0); MEAN CELL VOLUME 87.9 fl (81.0-99.0); MEAN CORPUSCULAR HEMOGLOBIN 29.9 pg (27.0-31.0); RBC 3.84 Mil/uL (3.80-5.20); RED CELL DISTRIBUTION WIDTH 14.6 % (11.5-14.5); WHITE BLOOD COUNT 9.2 K/uL (4.8-10.8)
[2017-11-22 07:11] LABS: ALB/GLOB RATIO 1.3 (1.0-2.1); ALBUMIN 3.8 g/dL (3.5-5.0); CALCIUM 9.9 mg/dL (8.4-10.2)
--- NOTE | 2017-11-22 08:57 | CT ---
PROCEDURE: CT HEAD WITHOUT CONTRAST. HISTORY: AMS COMPARISON: 02/28/2017 TECHNIQUE: Axial computed tomography images were obtained through the head/brain without intravenous contrast. Radiation dose: Total exam DLP = 691.6 mGy-cm. This CT exam was performed using one or more of the following dose reduction techniques: Automated exposure control, adjustment of the mA and/or kV according to patient size, and/or use of iterative reconstruction technique. FINDINGS: HEMORRHAGE: No intracranial hemorrhage. BRAIN: No mass effect or edema. Moderate periventricular white matter lucency with patchy and confluent deep/ subcortical white matter lucency consistent with chronic microvascular ischemic change. No evidence of acute infarct VENTRICLES: Unremarkable. No hydrocephalus. CALVARIUM: Unremarkable. PARANASAL SINUSES: Air-fluid level in left maxillary antrum may reflect acute sinusitis. Correlate clinically. MASTOID AIR CELLS: Unremarkable as visualized. No inflammatory changes. OTHER FINDINGS: None. IMPRESSION: No intracranial mass, hemorrhage or evidence of acute infarct. Chronic white matter ischemic change. Air-fluid level in left maxillary sinus may reflect acute sinusitis.
[2017-11-22] MEDS ORDERED: Patient's Own Med (Rosuvastatin Calcium [Crestor] 10 MG) PO SCH (09:00)
[2017-11-22] MEDS ORDERED: Patient's Own Med (Linagliptin [Tradjenta] 5 MG) PO SCH (09:00)
[2017-11-22] MEDS: Insulin Regular 100 units/ml SC SCH ×4 (09:23→22:41)
[2017-11-22] MEDS: GlipiZIDE 5 mg SR Tab PO SCH (09:26)
[2017-11-22] MEDS: Multivitamin Vitamin B Complex (Nephro-Vite) Tab PO SCH (09:27)
[2017-11-22] MEDS: Pantoprazole 20 mg EC Tab PO SCH (09:43)
[2017-11-22] MEDS: Dextrose 5%/0.9% NS 1,000 ML IV SCH (09:49)
--- NOTE | 2017-11-22 10:30 | CP.PCM.CON ---
History of Present Illness - History of Present Illness History of Present Illness: PT Is 77 year old female presents to the ED with friend via EMS for decreased appetite for the last 3 days. Patient is a limited historian due to history of dementia. on evaluation pt is pleasant smiling, confused oriented to person only , as per chart, pt reportedly has decreased sleep and decreased appetite when asked pt unable to give information due to advanced dementia, pt denied any changes in mood denied symptoms of depression denied perceptual disturbances. denied suicidal ideation Past Patient History - Past Medical History & Family History Past Medical History?: Yes - Past Social History Smoking Status: Never Smoked - CARDIAC Hx Cardiac Disorders: Yes Hx Hypercholesterolemia: Yes Hx Hypertension: Yes - PULMONARY Hx Respiratory Disorders: Yes Hx Asthma: Yes - NEUROLOGICAL Hx Neurological Disorder: Yes Hx Alzheimer's Disease: Yes Hx Dementia: Yes - HEENT Hx HEENT Problems: No - RENAL Hx Chronic Kidney Disease: No Hx Renal Failure: Yes - ENDOCRINE/METABOLIC Hx Endocrine Disorders: Yes Hx Diabetes Mellitus Type 2: Yes Hx Hypothyroidism: Yes - HEMATOLOGICAL/ONCOLOGICAL Hx Blood Disorders: Yes Hx Cancer: Yes - INTEGUMENTARY Hx Dermatological Problems: No - MUSCULOSKELETAL/RHEUMATOLOGICAL Hx Falls: No - GASTROINTESTINAL Hx Gastrointestinal Disorders: Yes Hx Gastritis: Yes - GENITOURINARY/GYNECOLOGICAL Hx Genitourinary Disorders: Yes Hx Cervical Cancer: Yes - PSYCHIATRIC Hx Substance Use: No - SURGICAL HISTORY Hx Surgeries: Yes Hx Hysterectomy: Yes - ANESTHESIA Hx Anesthesia: Yes Hx Anesthesia Reactions: No Hx Malignant Hyperthermia: No Meds Allergies/Adverse Reactions: Allergies Allergy/AdvReac Type Severity Reaction Status Date / Time No Known Allergies Allergy Verified 11/21/17 13:18 - Medications Medications: Current Medications Amlodipine Besylate (Norvasc) 10 mg PO DAILY [facility] Last Admin: 11/22/17 09:27 Dose: 10 mg Atorvastatin Calcium (Lipitor) 20 mg PO DAILY [facility] Last Admin: 11/22/17 09:26 Dose: 20 mg Cyproheptadine HCl (Periactin) 4 mg PO DAILY [facility] Last Admin: 11/22/17 09:43 Dose: 4 mg Enalapril Maleate (Vasotec) 20 mg PO DAILY [facility] Last Admin: 11/22/17 09:43 Dose: 20 mg Glipizide (Glucotrol Xl) 5 mg PO DAILY [facility] Last Admin: 11/22/17 09:26 Dose: 5 mg Home Med (Memantine Hcl [Namenda Xr]) 28 mg PO DAILY [facility] Dextrose/Sodium Chloride (Dextrose 5%/0.9% Ns 1000 Ml) 1,000 mls @ 80 mls/hr IV .[id number] [facility] Stop: 11/22/17 19:21 Last Admin: 11/22/17 09:49 Dose: 80 mls/hr Insulin Human Regular (Humulin R) 0 units SC ACHS [facility] PRN Reason: Protocol Last Admin: 11/22/17 09:23 Dose: Not Given Megestrol Acetate (Megace) 20 mg PO DAILY [facility] Last Admin: 11/22/17 09:27 Dose: 20 mg Pantoprazole Sodium (Protonix Ec Tab) 20 mg PO DAILY [facility] Last Admin: 11/22/17 09:43 Dose: 20 mg Sertraline HCl (Zoloft) 50 mg PO DAILY [facility] Last Admin: 11/22/17 09:43 Dose: 50 mg Sitagliptin Phosphate (Januvia) 25 mg PO DAILY [facility] Last Admin: 11/22/17 09:26 Dose: 25 mg Vitamin B Complex/Vit C/Folic Acid (Nephro-Rusty) 1 tab PO DAILY [facility] Last Admin: 11/22/17 09:27 Dose: 1 tab Physical Exam - Psychiatric Exam Additional comments: pt seen in bed calm cooperative speech irrelevant and thought form not goal directed , pt alert awake oriented to person only denied suicidal ideation denied perceptual disturbances, limited insight into illness Results - Vital Signs Recent Vital Signs: Last Vital Signs Temp 97.5 F L 11/22/17 08:25 Pulse 97 H 11/22/17 09:27 Resp 20 11/22/17 08:25 BP 106/64 11/22/17 09:27 Pulse Ox 96 11/22/17 08:25 - Labs Result Diagrams: 11/22/17 06:15 11/22/17 06:15 Labs: Laboratory Results - last 24 hr 11/21/17 11/21/17 11/21/17 13:32 13:59 14:00 WBC 10.5 RBC 4.23 Hgb 12.5 D Hct 37.9 MCV 89.4 MCH 29.5 MCHC 33.0 RDW 14.8 H Plt Count 250 MPV 8.7 Neut % (Auto) 71.5 Lymph % (Auto) 18.5 L [place] % (Auto) 8.2 Eos % (Auto) 1.2 Baso % (Auto) 0.6 Neut # (Auto) 7.5 H Lymph # (Auto) 1.9 [place] # (Auto) 0.9 H Eos # (Auto) 0.1 Baso # (Auto) 0.1 pO2 VBG pH VBG pCO2 VBG HCO3 VBG Total CO2 VBG O2 Sat (Calc) VBG Base Excess VBG Potassium Glucose Lactate FiO2 Sodium Potassium Chloride Carbon Dioxide Anion Gap BUN Creatinine Est GFR ( Amer) Est GFR (Non-Af Amer) POC Glucose (mg/dL) 101 91 Random Glucose Calcium Total Bilirubin AST ALT Alkaline Phosphatase Ammonia Total Protein Albumin Globulin Albumin/Globulin Ratio TSH 3rd Generation Venous Blood Potassium Urine Color Urine Clarity Urine pH Ur Specific [place] Urine Protein Urine Glucose (UA) Urine Ketones Urine Blood Urine Nitrate Urine Bilirubin Urine Urobilinogen Ur Leukocyte Esterase Urine RBC (Auto) Urine Microscopic WBC Ur Squamous Epith Cells Hyaline Casts 11/21/17 11/21/17 11/21/17 14:00 14:20 14:40 WBC RBC Hgb Hct MCV MCH MCHC RDW Plt Count MPV Neut % (Auto) Lymph % (Auto) [place] % (Auto) Eos % (Auto) Baso % (Auto) Neut # (Auto) Lymph # (Auto) [place] # (Auto) Eos # (Auto) Baso # (Auto) pO2 25 L VBG pH 7.34 VBG pCO2 50 VBG HCO3 23.8 VBG Total CO2 28.5 H VBG O2 Sat (Calc) 51.4 VBG Base Excess 0.5 VBG Potassium 5.3 H Glucose 114 H Lactate 0.9 FiO2 21.0 Sodium 143 141.0 Potassium 6.2 H* D Chloride 106 107.0 Carbon Dioxide 23 Anion Gap 20 BUN 53 H Creatinine 2.5 H Est GFR ( Amer) 23 Est GFR (Non-Af Amer) 19 POC Glucose (mg/dL) Random Glucose 103 Calcium 10.7 H Total Bilirubin 1.2 AST 66 H D ALT 51 Alkaline Phosphatase 72 Ammonia Total Protein 8.3 H Albumin 4.4 Globulin 3.9 Albumin/Globulin Ratio 1.1 TSH 3rd Generation Venous Blood Potassium 5.3 H Urine Color Yellow Urine Clarity Slighty-cloudy Urine pH 5.0 Ur Specific [place] 1.017 Urine Protein 30 Urine Glucose (UA) Neg Urine Ketones Trace Urine Blood Negative Urine Nitrate Negative Urine Bilirubin Negative Urine Urobilinogen 0.2-1.0 Ur Leukocyte Esterase Trace Urine RBC (Auto) < 1 Urine Microscopic WBC 3 Ur Squamous Epith Cells 5 Hyaline Casts 3-5 H 11/21/17 11/21/17 11/21/17 15:23 17:18 17:59 WBC RBC Hgb Hct MCV MCH MCHC RDW Plt Count MPV Neut % (Auto) Lymph % (Auto) [place] % (Auto) Eos % (Auto) Baso % (Auto) Neut # (Auto) Lymph # (Auto) [place] # (Auto) Eos # (Auto) Baso # (Auto) pO2 VBG pH VBG pCO2 VBG HCO3 VBG Total CO2 VBG O2 Sat (Calc) VBG Base Excess VBG Potassium Glucose Lactate FiO2 Sodium 144 Potassium 5.1 H Chloride 106 Carbon Dioxide 24 Anion Gap 19 BUN 50 H Creatinine 2.6 H Est GFR ( Amer) 22 Est GFR (Non-Af Amer) 18 POC Glucose (mg/dL) 104 Random Glucose 110 H Calcium 10.6 H Total Bilirubin 0.6 AST 48 H D ALT 55 H Alkaline Phosphatase 76 Ammonia 10 L Total Protein 7.6 Albumin 4.1 Globulin 3.5 Albumin/Globulin Ratio 1.2 TSH 3rd Generation Venous Blood Potassium Urine Color Urine Clarity Urine pH Ur Specific [place] Urine Protein Urine Glucose (UA) Urine Ketones Urine Blood Urine Nitrate Urine Bilirubin Urine Urobilinogen Ur Leukocyte Esterase Urine RBC (Auto) Urine Microscopic WBC Ur Squamous Epith Cells Hyaline Casts 11/21/17 11/22/17 11/22/17 21:27 06:07 06:15 WBC 9.2 RBC 3.84 Hgb 11.5 L Hct 33.7 L MCV 87.9 MCH 29.9 MCHC 34.0 RDW 14.6 H Plt Count 217 MPV Neut % (Auto) Lymph % (Auto) [place] % (Auto) Eos % (Auto) Baso % (Auto) Neut # (Auto) Lymph # (Auto) [place] # (Auto) Eos # (Auto) Baso # (Auto) pO2 VBG pH VBG pCO2 VBG HCO3 VBG Total CO2 VBG O2 Sat (Calc) VBG Base Excess VBG Potassium Glucose Lactate FiO2 Sodium Potassium Chloride Carbon Dioxide Anion Gap BUN Creatinine Est GFR ( Amer) Est GFR (Non-Af Amer) POC Glucose (mg/dL) 193 H 112 H Random Glucose Calcium Total Bilirubin AST ALT Alkaline Phosphatase Ammonia Total Protein Albumin Globulin Albumin/Globulin Ratio TSH 3rd Generation Venous Blood Potassium Urine Color Urine Clarity Urine pH Ur Specific [place] Urine Protein Urine Glucose (UA) Urine Ketones Urine Blood Urine Nitrate Urine Bilirubin Urine Urobilinogen Ur Leukocyte Esterase Urine RBC (Auto) Urine Microscopic WBC Ur Squamous Epith Cells Hyaline Casts 11/22/17 06:15 WBC RBC Hgb Hct MCV MCH MCHC RDW Plt Count MPV Neut % (Auto) Lymph % (Auto) [place] % (Auto) Eos % (Auto) Baso % (Auto) Neut # (Auto) Lymph # (Auto) [place] # (Auto) Eos # (Auto) Baso # (Auto) pO2 VBG pH VBG pCO2 VBG HCO3 VBG Total CO2 VBG O2 Sat (Calc) VBG Base Excess VBG Potassium Glucose Lactate FiO2 Sodium 146 Potassium 4.1 Chloride 111 H Carbon Dioxide 27 Anion Gap 12 BUN 35 H Creatinine 1.6 H Est GFR ( Amer) 38 Est GFR (Non-Af Amer) 31 POC Glucose (mg/dL) Random Glucose 115 H Calcium 9.9 Total Bilirubin 0.4 AST 36 D ALT 50 Alkaline Phosphatase 70 Ammonia Total Protein 6.9 Albumin 3.8 Globulin 3.0 Albumin/Globulin Ratio 1.3 TSH 3rd Generation 0.43 L Venous Blood Potassium Urine Color Urine Clarity Urine pH Ur Specific [place] Urine Protein Urine Glucose (UA) Urine Ketones Urine Blood Urine Nitrate Urine Bilirubin Urine Urobilinogen Ur Leukocyte Esterase Urine RBC (Auto) Urine Microscopic WBC Ur Squamous Epith Cells Hyaline Casts Assessment & Plan - Assessment and Plan (Free Text) Assessment: major neurocognitive disorder moderate to severe Plan: due to reported decreased sleep and appetite pt would benefit from starting remeron 7.5mg qhs, with lowering zoloft to 25mg and then to be discontinued pt would benefit from being started on Namenda
--- NOTE | 2017-11-22 17:38 | CP.PCM.HP ---
<Samanta Guallpa - Last Filed: 11/22/17 18:07> History of Present Illness - History of Present Illness History of Present Illness: 77 yo F with PMH dementia, arthritis, diabetes, HTN, presented to ED for decreased appetite and admitted for failure to thrive. Pt is a poor historian, history obtained in ED via friend who was with her. Friend reported that for the last 3 days, patient had not been eating well, had been sleeping more during the day, and has not been walking. PCP: Dr. Jonel Jerry In ED CBC, CMP, CXR, Head CT, urine cx, blood cx. Head CT: IMPRESSION: No intracranial mass, hemorrhage or evidence of acute infarct. Chronic white matter ischemic change. Air-fluid level in left maxillary sinus may reflect acute sinusitis. CXR: No active disease. Found to have elevated BUN/Cr in ED; started hydration. Admitted with acute renal failure, likely secondary to dehydration. Present on Admission - Present on Admission Any Indicators Present on Admission: No Review of Systems - Review of Systems Review of Systems: positive: increased sleepiness, decreased appetite Past Patient History - Past Medical History & Family History Past Medical History?: Yes - Past Social History Smoking Status: Never Smoked - CARDIAC Hx Cardiac Disorders: Yes Hx Hypercholesterolemia: Yes Hx Hypertension: Yes - PULMONARY Hx Respiratory Disorders: Yes Hx Asthma: Yes - NEUROLOGICAL Hx Neurological Disorder: Yes Hx Alzheimer's Disease: Yes Hx Dementia: Yes - HEENT Hx HEENT Problems: No - RENAL Hx Chronic Kidney Disease: No Hx Renal Failure: Yes - ENDOCRINE/METABOLIC Hx Endocrine Disorders: Yes Hx Diabetes Mellitus Type 2: Yes Hx Hypothyroidism: Yes - HEMATOLOGICAL/ONCOLOGICAL Hx Blood Disorders: Yes Hx Cancer: Yes - INTEGUMENTARY Hx Dermatological Problems: No - MUSCULOSKELETAL/RHEUMATOLOGICAL Hx Falls: No - GASTROINTESTINAL Hx Gastrointestinal Disorders: Yes Hx Gastritis: Yes - GENITOURINARY/GYNECOLOGICAL Hx Genitourinary Disorders: Yes Hx Cervical Cancer: Yes - PSYCHIATRIC Hx Substance Use: No - SURGICAL HISTORY Hx Surgeries: Yes Hx Hysterectomy: Yes - ANESTHESIA Hx Anesthesia: Yes Hx Anesthesia Reactions: No Hx Malignant Hyperthermia: No Meds Allergies/Adverse Reactions: Allergies Allergy/AdvReac Type Severity Reaction Status Date / Time No Known Allergies Allergy Verified 11/21/17 13:18 Physical Exam - Constitutional Appears: No Acute Distress - Neck Exam Neck exam: Positive for: Normal Inspection - Respiratory Exam Respiratory Exam: NORMAL BREATHING PATTERN - Cardiovascular Exam Cardiovascular Exam: REGULAR RHYTHM - GI/Abdominal Exam GI & Abdominal Exam: Normal Bowel Sounds, Soft - Extremities Exam Extremities exam: Positive for: normal inspection - Neurological Exam Additional comments: awake - Skin Skin Exam: Dry, Warm Results - Vital Signs Recent Vital Signs: Last Vital Signs Temp 97.5 F L 11/22/17 16:20 Pulse 83 11/22/17 16:20 Resp 20 11/22/17 16:20 BP 90/59 L 11/22/17 16:20 Pulse Ox 98 11/22/17 16:20 - Labs Result Diagrams: 11/22/17 06:15 11/22/17 06:15 Labs: Laboratory Results - last 24 hr 11/21/17 11/21/17 11/22/17 17:59 21:27 06:07 WBC RBC Hgb Hct MCV MCH MCHC RDW Plt Count Sodium Potassium Chloride Carbon Dioxide Anion Gap BUN Creatinine Est GFR ( Amer) Est GFR (Non-Af Amer) POC Glucose (mg/dL) 193 H 112 H Random Glucose Calcium Total Bilirubin AST ALT Alkaline Phosphatase Ammonia 10 L Total Protein Albumin Globulin Albumin/Globulin Ratio TSH 3rd Generation 11/22/17 11/22/17 11/22/17 06:15 06:15 11:12 WBC 9.2 RBC 3.84 Hgb 11.5 L Hct 33.7 L MCV 87.9 MCH 29.9 MCHC 34.0 RDW 14.6 H Plt Count 217 Sodium 146 Potassium 4.1 Chloride 111 H Carbon Dioxide 27 Anion Gap 12 BUN 35 H Creatinine 1.6 H Est GFR ( Amer) 38 Est GFR (Non-Af Amer) 31 POC Glucose (mg/dL) 166 H Random Glucose 115 H Calcium 9.9 Total Bilirubin 0.4 AST 36 D ALT 50 Alkaline Phosphatase 70 Ammonia Total Protein 6.9 Albumin 3.8 Globulin 3.0 Albumin/Globulin Ratio 1.3 TSH 3rd Generation 0.43 L 11/22/17 17:10 WBC RBC Hgb Hct MCV MCH MCHC RDW Plt Count Sodium Potassium Chloride Carbon Dioxide Anion Gap BUN Creatinine Est GFR ( Amer) Est GFR (Non-Af Amer) POC Glucose (mg/dL) 79 Random Glucose Calcium Total Bilirubin AST ALT Alkaline Phosphatase Ammonia Total Protein Albumin Globulin Albumin/Globulin Ratio TSH 3rd Generation Assessment & Plan (1) Failure to thrive in adult Status: Acute (2) Dehydration Status: Acute (3) [id number] kidney injury Status: Acute (4) CKD (chronic kidney disease) stage 4, GFR 15-29 ml/min Status: Chronic (5) Dementia Status: Chronic (6) Type 2 diabetes mellitus Status: Chronic (7) Hyperlipidemia Status: Chronic - Assessment and Plan (Free Text) Plan: - IV hydration; BUN/Cr improving since admission - Encourage PO intake- modified consistency diet, started megace - Resume home meds for HTN, dementia, diabetes, hyperlipidemia - Psych consult - recs appreciated - PT/OT - SCD <Hayden Lebron - Last Filed: 11/23/17 10:43> Results - Vital Signs Recent Vital Signs: Last Vital Signs Temp 97.9 F 11/23/17 08:18 Pulse 73 11/23/17 08:38 Resp 18 11/23/17 08:18 BP 113/71 11/23/17 08:38 Pulse Ox 96 11/23/17 10:40 - Labs Result Diagrams: 11/23/17 06:05 11/23/17 06:05 Labs: Laboratory Results - last 24 hr 11/22/17 11/22/17 11/22/17 11:12 17:10 22:24 WBC RBC Hgb Hct MCV MCH MCHC RDW Plt Count Sodium Potassium Chloride Carbon Dioxide Anion Gap BUN Creatinine Est GFR ( Amer) Est GFR (Non-Af Amer) POC Glucose (mg/dL) 166 H 79 115 H Random Glucose Calcium 11/23/17 11/23/17 11/23/17 05:49 06:05 06:05 WBC 6.8 RBC 3.61 L Hgb 10.8 L Hct 32.0 L MCV 88.5 MCH 29.9 MCHC 33.8 RDW 14.6 H Plt Count 204 Sodium 143 Potassium 3.9 Chloride 111 H Carbon Dioxide 25 Anion Gap 11 BUN 24 H Creatinine 1.3 H Est GFR ( Amer) 48 Est GFR (Non-Af Amer) 40 POC Glucose (mg/dL) 107 Random Glucose 100 Calcium 9.4 Assessment & Plan - Assessment and Plan (Free Text) Plan: I was present during evaluation and discussed with DR Guallpa re plans of care and tx. Hayden Lebron M.D.
[2017-11-23 06:20] LABS: HEMOGLOBIN 10.8 g/dL (12.0-16.0); MEAN CELL VOLUME 88.5 fl (81.0-99.0); MEAN CORPUSCULAR HEMOGLOBIN 29.9 pg (27.0-31.0); MEAN CORPUSCULAR HGB CONC 33.8 g/dL (33.0-37.0); RBC 3.61 Mil/uL (3.80-5.20); RED CELL DISTRIBUTION WIDTH 14.6 % (11.5-14.5); WHITE BLOOD COUNT 6.8 K/uL (4.8-10.8)
[2017-11-23] MEDS: Insulin Regular 100 units/ml SC SCH ×2 (07:00→11:00)
[2017-11-23 07:11] LABS: CALCIUM 9.4 mg/dL (8.4-10.2)
[2017-11-23 08:19] VITALS: BP 113/71; PULSE 73; RESP 18; TEMP 97.9
[2017-11-23] MEDS: Multivitamin Vitamin B Complex (Nephro-Vite) Tab PO SCH (08:38)
[2017-11-23] MEDS: Pantoprazole 20 mg EC Tab PO SCH (08:39)
[2017-11-23] MEDS: GlipiZIDE 5 mg SR Tab PO SCH (08:39)
[2017-11-23 10:40] VITALS: O2SAT 96
--- NOTE | 2017-11-23 10:47 | CP.PCM.DIS ---
Provider - Provider Date of Admission: 11/21/17 16:58 Attending physician: Hayden Lebron MD Time Spent in preparation of Discharge (in minutes): 30 Hospital Course - Lab Results Lab Results: Micro Results 11/21/17 14:00 Blood-Venous Blood Culture - Preliminary NO GROWTH AFTER 24 HOURS 11/21/17 14:00 Blood-Venous Blood Culture - Preliminary NO GROWTH AFTER 24 HOURS 11/21/17 14:40 Urine,Catheterized Urine Culture - Final No Growth (<1,000 CFU/ML) Most Recent Lab Values WBC 6.8 K/uL (4.8-10.8) 11/23/17 06:05 RBC 3.61 Mil/uL (3.80-5.20) L 11/23/17 06:05 Hgb 10.8 g/dL (12.0-16.0) L 11/23/17 06:05 Hct 32.0 % (34.0-47.0) L 11/23/17 06:05 MCV 88.5 fl (81.0-99.0) 11/23/17 06:05 MCH 29.9 pg (27.0-31.0) 11/23/17 06:05 MCHC 33.8 g/dL (33.0-37.0) 11/23/17 06:05 RDW 14.6 % (11.5-14.5) H 11/23/17 06:05 Plt Count 204 K/uL (130-400) 11/23/17 06:05 MPV 8.7 fl (7.2-11.7) 11/21/17 14:00 Neut % (Auto) 71.5 % (50.0-75.0) 11/21/17 14:00 Lymph % (Auto) 18.5 % (20.0-40.0) L 11/21/17 14:00 [place] % (Auto) 8.2 % (0.0-10.0) 11/21/17 14:00 Eos % (Auto) 1.2 % (0.0-4.0) 11/21/17 14:00 Baso % (Auto) 0.6 % (0.0-2.0) 11/21/17 14:00 Neut # (Auto) 7.5 K/uL (1.8-7.0) H 11/21/17 14:00 Lymph # (Auto) 1.9 K/uL (1.0-4.3) 11/21/17 14:00 [place] # (Auto) 0.9 K/uL (0.0-0.8) H 11/21/17 14:00 Eos # (Auto) 0.1 K/uL (0.0-0.7) 11/21/17 14:00 Baso # (Auto) 0.1 K/uL (0.0-0.2) 11/21/17 14:00 pO2 25 mm/Hg (30-55) L 11/21/17 14:20 VBG pH 7.34 (7.32-7.43) 11/21/17 14:20 VBG pCO2 50 mmHg (40-60) 11/21/17 14:20 VBG HCO3 23.8 mmol/L 11/21/17 14:20 VBG Total CO2 28.5 mmol/L (22-28) H 11/21/17 14:20 VBG O2 Sat (Calc) 51.4 % (40-65) 11/21/17 14:20 VBG Base Excess 0.5 mmol/L (0.0-2.0) 11/21/17 14:20 VBG Potassium 5.3 mmol/L (3.6-5.2) H 11/21/17 14:20 Sodium 141.0 mmol/L (132-148) 11/21/17 14:20 Chloride 107.0 mmol/L (98-107) 11/21/17 14:20 Glucose 114 mg/dL (65-105) H 11/21/17 14:20 Lactate 0.9 mmol/L (0.7-2.1) 11/21/17 14:20 FiO2 21.0 % 11/21/17 14:20 Sodium 143 mmol/l (132-148) 11/23/17 06:05 Potassium 3.9 MMOL/L (3.6-5.0) 11/23/17 06:05 Chloride 111 mmol/L (98-107) H 11/23/17 06:05 Carbon Dioxide 25 mmol/L (22-30) 11/23/17 06:05 Anion Gap 11 (10-20) 11/23/17 06:05 BUN 24 mg/dl (7-17) H 11/23/17 06:05 Creatinine 1.3 mg/dl (0.7-1.2) H 11/23/17 06:05 Est GFR ( Amer) 48 11/23/17 06:05 Est GFR (Non-Af Amer) 40 11/23/17 06:05 POC Glucose (mg/dL) 107 mg/dL (65-110) 11/23/17 05:49 Random Glucose 100 mg/dL (65-105) 11/23/17 06:05 Calcium 9.4 mg/dL (8.4-10.2) 11/23/17 06:05 Total Bilirubin 0.4 mg/dl (0.2-1.3) 11/22/17 06:15 AST 36 U/L (14-36) D 11/22/17 06:15 ALT 50 U/L (9-52) 11/22/17 06:15 Alkaline Phosphatase 70 U/L (38-126) 11/22/17 06:15 Ammonia 10 umo/L (11-51) L 11/21/17 17:59 Total Protein 6.9 G/DL (6.3-8.2) 11/22/17 06:15 Albumin 3.8 g/dL (3.5-5.0) 11/22/17 06:15 Globulin 3.0 gm/dL (2.2-3.9) 11/22/17 06:15 Albumin/Globulin Ratio 1.3 (1.0-2.1) 11/22/17 06:15 TSH 3rd Generation 0.43 mIU/ML (0.46-4.68) L 11/22/17 06:15 Venous Blood Potassium 5.3 mmol/L (3.6-5.2) H 11/21/17 14:20 Urine Color Yellow (YELLOW) 11/21/17 14:40 Urine Clarity Slighty-cloudy (Clear) 11/21/17 14:40 Urine pH 5.0 (5.0-8.0) 11/21/17 14:40 Ur Specific [place] 1.017 (1.003-1.030) 11/21/17 14:40 Urine Protein 30 mg/dL (NEGATIVE) 11/21/17 14:40 Urine Glucose (UA) Neg mg/dL (Normal) 11/21/17 14:40 Urine Ketones Trace mg/dL (NEGATIVE) 11/21/17 14:40 Urine Blood Negative (NEGATIVE) 11/21/17 14:40 Urine Nitrate Negative (NEGATIVE) 11/21/17 14:40 Urine Bilirubin Negative (NEGATIVE) 11/21/17 14:40 Urine Urobilinogen 0.2-1.0 mg/dL (0.2-1.0) 11/21/17 14:40 Ur Leukocyte Esterase Trace [place]/uL (Negative) 11/21/17 14:40 Urine RBC (Auto) < 1 /hpf (0-3) 11/21/17 14:40 Urine Microscopic WBC 3 /hpf (0-5) 11/21/17 14:40 Ur Squamous Epith Cells 5 /hpf (0-5) 11/21/17 14:40 Hyaline Casts 3-5 /hpf (0-2) H 11/21/17 14:40 - Hospital Course Hospital Course: This is a 77 y/o female admitted for failure to thrive and dehydration. Apparently she was noted by her homemaker to have decreased intake for the past 2 weeks. She has a hx of anxiety and depression. Initial labs showed sx of dehydration and acute renal injury with elevated BUN and creatinine. She was started on hydration and iv fluids and started on megace. She improved well and noted labs to be better. She was started on low dose zoloft and and remeron by the Psychiatrist. She was sent home in stable condition. Discharge Exam - Head Exam Head Exam: ATRAUMATIC, NORMAL INSPECTION, NORMOCEPHALIC - Eye Exam Eye Exam: EOMI, Normal appearance - Respiratory Exam Respiratory Exam: NORMAL BREATHING PATTERN - Cardiovascular Exam Cardiovascular Exam: REGULAR RHYTHM - GI/Abdominal Exam GI & Abdominal Exam: Normal Bowel Sounds - Neurological Exam Neurological exam: Altered, CN II-XII Intact - Psychiatric Exam Psychiatric exam: Depressed Discharge Plan - Follow Up Plan Condition: FAIR Disposition: HOME/ ROUTINE Instructions: Dementia (Including Alzheimer Disease), Dehydration, Adult (DC), Acute Kidney Failure (DC), Failure to Thrive, Adult (DC) Additional Instructions: advised follow up with DR Jerry. Referrals: Hayden Lebron MD [Staff Provider] -
== END 2017-11-23 16:50 | disposition home or self-care (01) | DRG 684 ==
LOC: H.ER 13:13 → H.ERHOLD 16:58 → H.MEDSURG1 18:23
PROVIDERS: ADMIT Family Medicine; ATTEND Family Medicine
DX: N17.9 Acute kidney failure, unspecified (principal); I12.9 Hypertensive chronic kidney disease with stage 1 through stage 4 chronic kidney disease, or unspecified chronic kidney disease; N18.4 Chronic kidney disease, stage 4 (severe); F02.80 Dementia in other diseases classified elsewhere, unspecified severity, without behavioral disturbance, psychotic disturbance, mood disturbance, and anxiety; G30.9 Alzheimer's disease, unspecified; E86.0 Dehydration; E03.9 Hypothyroidism, unspecified; E11.22 Type 2 diabetes mellitus with diabetic chronic kidney disease; R62.7 Adult failure to thrive; E78.5 Hyperlipidemia, unspecified; E78.00 Pure hypercholesterolemia, unspecified; J45.909 Unspecified asthma, uncomplicated; M19.90 Unspecified osteoarthritis, unspecified site; F41.9 Anxiety disorder, unspecified; Z85.41 Personal history of malignant neoplasm of cervix uteri; Z90.710 Acquired absence of both cervix and uterus; Z79.84 Long term (current) use of oral hypoglycemic drugs

== ENCOUNTER 2018-03-03 14:00 | Inpatient (IN) | payer MEDICARE, MEDICAID ==
--- NOTE | 2018-03-03 14:29 | ED PDOC ---
HPI: Seizure Time Seen by Provider: 03/03/18 14:10 Chief Complaint (Provider): Seizure History Per: Patient, EMS History/Exam Limitations: clinical condition (dementia) Associated Symptoms: denies: Bit Tongue Additional Complaint(s): Patient is a 77 y/o female with history of Alzheimer's Disease and dementia, who was brought to the ED by EMS after witnessed seizure at adult daycare. School Custodian states she stopped giving patient Temazepam x2 days ago due to increased lethargy. Witness is not available to describe seizure. Due to history of dementia patient is unable to provide history. Past Medical History - Medical History PMH: Alzheimer's Disease, Arthritis, Asthma, Dementia, Diabetes, Gastritis, HTN, Hypercholesterolemia, Hypothyroidism Denies: Chronic Kidney Disease - Family History Family History: States: Unknown Family Hx - Home Medications Home Medications: Ambulatory Orders Medication Instructions Recorded Enalapril Maleate [Vasotec] 20 mg PO DAILY 02/28/17 Memantine HCl [Namenda Xr] 28 mg PO DAILY 02/28/17 Omeprazole 20 mg PO DAILY 02/28/17 Sertraline HCl 50 mg PO DAILY 02/28/17 amLODIPine [Norvasc] 10 mg PO DAILY 02/28/17 Cyproheptadine HCl 4 mg PO DAILY 11/05/17 Rosuvastatin Calcium [Crestor] 10 mg PO DAILY 11/05/17 Furosemide [Lasix] 20 mg PO DAILY #30 tablet 11/08/17 Vitamin B Complex/Vit C/Folic 1 tab PO DAILY #30 tab 11/08/17 [Nephro-Rusty] Glipizide [Glipizide Xl] 5 mg PO DAILY 11/21/17 Linagliptin [Tradjenta] 5 mg PO DAILY 11/21/17 - Allergies Allergies/Adverse Reactions: Allergies Allergy/AdvReac Type Severity Reaction Status Date / Time No Known Allergies Allergy Verified 03/03/18 14:36 Review of Systems Review Of Systems: ROS cannot be obtained secondary to pt's inabilty to answer questions. Physical Exam - Reviewed Nursing Documentation Reviewed: Yes Vital Signs Reviewed: Yes - Physical Exam Appears: Positive for: Non-toxic, No Acute Distress Head Exam: Positive for: ATRAUMATIC, NORMOCEPHALIC Skin: Positive for: Normal Color, Warm, Dry Eye Exam: Positive for: EOMI, Normal appearance, PERRL Neck: Positive for: Normal, Painless ROM, Supple Cardiovascular/Chest: Positive for: Regular Rate, Rhythm Respiratory: Positive for: Normal Breath Sounds (clear bilaterally). Negative for: Respiratory Distress Gastrointestinal/Abdominal: Positive for: Normal Exam, Soft. Negative for: Tenderness Back: Positive for: Normal Inspection. Negative for: L CVA Tenderness, R CVA Tenderness, Vertebral Tenderness, Other (deformity) Extremity: Positive for: Normal ROM. Negative for: Tenderness, Pedal Edema, Deformity Neurologic/Psych: Positive for: Alert, Oriented (x0). Negative for: Motor/Sensory Deficits Medical Decision Making Medical Decision Making: Time: 14:26 Initial Plan: EKG CMP Drug screen CBC w/ diff Scribe Attestation: Documented by Tim Perez, acting as a scribe for Abraham Pate MD. Provider Scribe Attestation: All medical record entries made by the Scribe were at my direction and personally dictated by me. I have reviewed the chart and agree that the record accurately reflects my personal performance of the history, physical exam, medical decision making, and the department course for this patient. I have also personally directed, reviewed, and agree with the discharge instructions and disposition. Disposition - Clinical Impression Clinical Impression: Seizure - Patient ED Disposition Is Patient to be Admitted: Yes - Disposition Disposition Time: 14:45 Condition: FAIR - Pt Status Changed To: Hospital Disposition Of: Observation - POA Present On Arrival: None
[2018-03-03 15:20] LABS: BASO # 0.1 K/uL (0.0-0.2); BASO % 1.2 % (0.0-2.0); EOS # 0.4 K/uL (0.0-0.7); EOS % 4.1 % (0.0-4.0); LYMPH # 1.7 K/uL (1.0-4.3); LYMPH % 18.1 % (20.0-40.0); MEAN CELL VOLUME 88.1 fl (81.0-99.0); MEAN CORPUSCULAR HEMOGLOBIN 30.2 pg (27.0-31.0); MEAN CORPUSCULAR HGB CONC 34.3 g/dL (33.0-37.0); MEAN PLATELET VOLUME 8.7 fl (7.2-11.7); MONO # 0.5 K/uL (0.0-0.8); MONO % 5.7 % (0.0-10.0); NEUT # 6.7 K/uL (1.8-7.0); NEUT % 70.9 % (50.0-75.0); NRBC % 0.1 % (0.0-0.0); RBC 3.63 Mil/uL (3.80-5.20); RED CELL DISTRIBUTION WIDTH 13.9 % (11.5-14.5); WHITE BLOOD COUNT 9.5 K/uL (4.8-10.8)
[2018-03-03 15:29] LABS: ALB/GLOB RATIO 1.3 (1.0-2.1); ALBUMIN 4.2 g/dL (3.5-5.0); CALCIUM 10.2 mg/dL (8.4-10.2)
--- NOTE | 2018-03-03 15:59 | CT ---
Date of service: 03/03/2018 PROCEDURE: CT HEAD WITHOUT CONTRAST. HISTORY: r/o bleed COMPARISON: 11/21/2017 TECHNIQUE: Axial computed tomography images were obtained through the head/brain without intravenous contrast. Radiation dose: Total exam DLP = 594.53 mGy-cm. This CT exam was performed using one or more of the following dose reduction techniques: Automated exposure control, adjustment of the mA and/or kV according to patient size, and/or use of iterative reconstruction technique. FINDINGS: HEMORRHAGE: No intracranial hemorrhage. BRAIN: No mass effect or edema. Mild diffuse age-appropriate cerebral atrophy. Moderate patchy and confluent periventricular and deep/subcortical white matter ischemic change. No evidence of acute infarct. VENTRICLES: Unremarkable. No hydrocephalus. CALVARIUM: Unremarkable. PARANASAL SINUSES: Unremarkable as visualized. No significant inflammatory changes. MASTOID AIR CELLS: Unremarkable as visualized. No inflammatory changes. OTHER FINDINGS: None. IMPRESSION: No intracranial mass, hemorrhage or evidence of acute infarct.
--- NOTE | 2018-03-03 22:10 | CARD ---
APPROVED REPORT Date of service: 03/03/2018 EKG Measurement Heart [id number] <Conclusion> Normal sinus rhythm Normal ECG
[2018-03-04] MEDS: Levothyroxine 75 MCG TAB PO SCH (07:20)
[2018-03-04 07:56] LABS: HEMOGLOBIN 9.7 g/dL (12.0-16.0); MEAN CELL VOLUME 89.3 fl (81.0-99.0); MEAN CORPUSCULAR HEMOGLOBIN 29.7 pg (27.0-31.0); MEAN CORPUSCULAR HGB CONC 33.2 g/dL (33.0-37.0); RBC 3.27 Mil/uL (3.80-5.20); RED CELL DISTRIBUTION WIDTH 13.9 % (11.5-14.5); WHITE BLOOD COUNT 12.2 K/uL (4.8-10.8)
[2018-03-04 08:35] LABS: ALB/GLOB RATIO 1.1 (1.0-2.1); ALBUMIN 3.4 g/dL (3.5-5.0); CALCIUM 9.5 mg/dL (8.4-10.2)
[2018-03-04] MEDS: Pantoprazole 20 mg EC Tab PO SCH (08:54)
--- NOTE | 2018-03-04 17:42 | CP.PCM.CON ---
History of Present Illness - History of Present Illness History of Present Illness: Neurology Consultation Note: Mrs. Melo is a 77-year-old woman with advanced Alzheimer's disease, who was on temazepam, but is being tapered off, and had a witnessed seizure yesterday in adult daycare. She is currently, at her baseline and not having any complaints after being given Klonapin 0.5 mg yesterday. Review of Systems - Review of Systems Systems not reviewed;Unavailable: Dementia Past Patient History - Past Medical History & Family History Past Medical History?: Yes - Past Social History Smoking Status: Former Smoker - CARDIAC Hx Cardiac Disorders: Yes Hx Hypercholesterolemia: Yes Hx Hypertension: Yes - PULMONARY Hx Respiratory Disorders: Yes Hx Asthma: Yes - NEUROLOGICAL Hx Neurological Disorder: Yes Hx Alzheimer's Disease: Yes Hx Dementia: Yes - HEENT Hx HEENT Problems: No - RENAL Hx Chronic Kidney Disease: No - ENDOCRINE/METABOLIC Hx Endocrine Disorders: Yes Hx Diabetes Mellitus Type 2: Yes Hx Hypothyroidism: Yes - HEMATOLOGICAL/ONCOLOGICAL Hx Blood Disorders: Yes Hx Cancer: Yes (Cervical) - INTEGUMENTARY Hx Dermatological Problems: No - MUSCULOSKELETAL/RHEUMATOLOGICAL Hx Musculoskeletal Disorders: Yes Hx Arthritis: Yes Hx Falls: Yes - GASTROINTESTINAL Hx Gastrointestinal Disorders: Yes Hx Gastritis: Yes - GENITOURINARY/GYNECOLOGICAL Hx Genitourinary Disorders: Yes Hx Cervical Cancer: Yes - PSYCHIATRIC Hx Psychophysiologic Disorder: No Hx Substance Use: No - SURGICAL HISTORY Hx Surgeries: Yes Hx Hysterectomy: Yes - ANESTHESIA Hx Anesthesia: Yes Hx Anesthesia Reactions: No Hx Malignant Hyperthermia: No Meds Allergies/Adverse Reactions: Allergies Allergy/AdvReac Type Severity Reaction Status Date / Time No Known Allergies Allergy Verified 03/03/18 14:47 - Medications Medications: Current Medications Amlodipine Besylate (Norvasc) 5 mg PO DAILY [facility] Last Admin: 03/04/18 08:53 Dose: Not Given Atorvastatin Calcium (Lipitor) 20 mg PO DAILY [facility] Last Admin: 03/04/18 08:54 Dose: 20 mg Cyproheptadine HCl (Periactin) 4 mg PO Q8 [facility] Last Admin: 03/04/18 17:05 Dose: 4 mg Enalapril Maleate (Vasotec) 20 mg PO DAILY [facility] Last Admin: 03/04/18 08:54 Dose: Not Given Levothyroxine Sodium (Synthroid) 75 mcg PO DAILY@0630 [facility] Last Admin: 03/04/18 07:20 Dose: 75 mcg Memantine (Namenda) 10 mg PO BID [facility] Last Admin: 03/04/18 17:05 Dose: 10 mg Mirtazapine (Remeron) 15 mg PO HS [facility] Pantoprazole Sodium (Protonix Ec Tab) 20 mg PO DAILY [facility] Last Admin: 03/04/18 08:54 Dose: 20 mg Sertraline HCl (Zoloft) 100 mg PO HS [facility] Sitagliptin Phosphate (Januvia) 25 mg PO DAILY [facility] Last Admin: 03/04/18 17:06 Dose: 25 mg Physical Exam - Constitutional Appears: Well - Head Exam Head Exam: ATRAUMATIC, NORMAL INSPECTION, NORMOCEPHALIC - Eye Exam Eye Exam: EOMI, Normal appearance, PERRL - ENT Exam ENT Exam: Mucous Membranes Moist, Normal Exam - Neck Exam Neck exam: Positive for: Normal Inspection - Respiratory Exam Respiratory Exam: Clear to Auscultation Bilateral, NORMAL BREATHING PATTERN - Cardiovascular Exam Cardiovascular Exam: REGULAR RHYTHM, +S1, +S2 - GI/Abdominal Exam GI & Abdominal Exam: Normal Bowel Sounds, Soft. absent: Tenderness - Rectal Exam Rectal Exam: Deferred - Neurological Exam Neurological exam: Altered, CN II-XII Intact, Motor Sensory Deficit, Reflexes Normal Additional comments: Moves all extremities. Follows commands intermittently, but is severely demented. Results - Vital Signs Recent Vital Signs: Last Vital Signs Temp 98.4 F 03/04/18 16:19 Pulse 82 03/04/18 16:19 Resp 20 03/04/18 16:19 BP 98/65 L 03/04/18 16:19 Pulse Ox 95 03/04/18 16:19 - Labs Result Diagrams: 03/04/18 06:50 03/04/18 06:50 Labs: Laboratory Results - last 24 hr 03/03/18 03/04/18 03/04/18 16:55 05:16 06:50 WBC 12.2 H RBC 3.27 L Hgb 9.7 L Hct 29.2 L MCV 89.3 MCH 29.7 MCHC 33.2 RDW 13.9 Plt Count 252 Sodium Potassium 5.3 H Chloride Carbon Dioxide Anion Gap BUN Creatinine Est GFR ( Amer) Est GFR (Non-Af Amer) POC Glucose (mg/dL) 91 Random Glucose Calcium Total Bilirubin AST ALT Alkaline Phosphatase Total Protein Albumin Globulin Albumin/Globulin Ratio 03/04/18 03/04/18 03/04/18 06:50 12:33 15:58 WBC RBC Hgb Hct MCV MCH MCHC RDW Plt Count Sodium 143 Potassium 4.7 Chloride 110 H Carbon Dioxide 28 Anion Gap 10 BUN 32 H Creatinine 1.9 H Est GFR ( Amer) 31 Est GFR (Non-Af Amer) 26 POC Glucose (mg/dL) 94 128 H Random Glucose 101 Calcium 9.5 Total Bilirubin 0.2 AST 23 ALT 29 Alkaline Phosphatase 56 Total Protein 6.5 Albumin 3.4 L Globulin 3.0 Albumin/Globulin Ratio 1.1 Assessment & Plan (1) Seizure Assessment and Plan: Likely due to benzodiazepine withdrawal. Will avoid using seizure medications for now since this is only a first seizure and seems to be provoked. If she has another seizure, will obtain MRI and EEG for further evaluation and consider long acting benzo to extend the taper and avoid withdrawal. Thank you. Status: Acute
[2018-03-04] MEDS: Sodium Chloride 0.9% 1,000 ML IV SCH (21:12)
[2018-03-05] MEDS: Levothyroxine 75 MCG TAB PO SCH (05:37)
[2018-03-05] MEDS: Pantoprazole 20 mg EC Tab PO SCH (09:00)
--- NOTE | 2018-03-05 12:36 | CP.PCM.HP ---
History of Present Illness - History of Present Illness History of Present Illness: This is a 77 y/o female with hx of dementia admitted few episodes of tonic clonic seizure initially a home and another witnessed one at the ER. She has been on Temazepam which was discontinued two days ago due to increasing lethargy. Present on Admission - Present on Admission Any Indicators Present on Admission: No History of DVT/PE: No History of Uncontrolled Diabetes: No Urinary Catheter: No Decubitus Ulcer Present: No Review of Systems - Neurological Neurological: Abnormal Movements, Disequilibrium, Memory Loss Past Patient History - Past Medical History & Family History Past Medical History?: Yes - Past Social History Smoking Status: Former Smoker - CARDIAC Hx Cardiac Disorders: Yes Hx Hypercholesterolemia: Yes Hx Hypertension: Yes - PULMONARY Hx Respiratory Disorders: Yes Hx Asthma: Yes - NEUROLOGICAL Hx Neurological Disorder: Yes Hx Alzheimer's Disease: Yes Hx Dementia: Yes - HEENT Hx HEENT Problems: No - RENAL Hx Chronic Kidney Disease: No - ENDOCRINE/METABOLIC Hx Endocrine Disorders: Yes Hx Diabetes Mellitus Type 2: Yes Hx Hypothyroidism: Yes - HEMATOLOGICAL/ONCOLOGICAL Hx Blood Disorders: Yes Hx Cancer: Yes (Cervical) - INTEGUMENTARY Hx Dermatological Problems: No - MUSCULOSKELETAL/RHEUMATOLOGICAL Hx Musculoskeletal Disorders: Yes Hx Arthritis: Yes Hx Falls: Yes - GASTROINTESTINAL Hx Gastrointestinal Disorders: Yes Hx Gastritis: Yes - GENITOURINARY/GYNECOLOGICAL Hx Genitourinary Disorders: Yes Hx Cervical Cancer: Yes - PSYCHIATRIC Hx Psychophysiologic Disorder: No Hx Substance Use: No - SURGICAL HISTORY Hx Surgeries: Yes Hx Hysterectomy: Yes - ANESTHESIA Hx Anesthesia: Yes Hx Anesthesia Reactions: No Hx Malignant Hyperthermia: No Meds Home Medications: Home Medication List Medication Instructions Recorded Confirmed Type Zolpidem [Ambien] 5 mg PO HS #3 tab 03/07/18 Rx Allergies/Adverse Reactions: Allergies Allergy/AdvReac Type Severity Reaction Status Date / Time No Known Allergies Allergy Verified 03/03/18 14:47 Physical Exam - Head Exam Head Exam: NORMAL INSPECTION - Eye Exam Eye Exam: Normal appearance - ENT Exam ENT Exam: Mucous Membranes Moist - Respiratory Exam Respiratory Exam: Clear to Auscultation Bilateral - GI/Abdominal Exam GI & Abdominal Exam: Normal Bowel Sounds - Neurological Exam Neurological exam: CN II-XII Intact, Oriented x3 Results - Vital Signs Recent Vital Signs: Last Vital Signs Temp 98.5 F 03/05/18 12:09 Pulse 89 03/05/18 12:09 Resp 20 10/14/18 12:09 BP 98/65 L 03/05/18 12:09 Pulse Ox 90 L 03/05/18 12:09 - Labs Result Diagrams: 03/06/18 04:20 03/06/18 04:20 Labs: Laboratory Results - last 24 hr 03/04/18 03/04/18 03/04/18 12:33 15:58 21:22 POC Glucose (mg/dL) 94 128 H 126 H 03/05/18 03/05/18 05:35 11:18 POC Glucose (mg/dL) 90 110 Assessment & Plan (1) Seizure Status: Acute (2) Withdrawal seizures Status: Acute (3) Dementia Status: Acute - Assessment and Plan (Free Text) Plan: admit to telemetry seizure prrecautions Neurocheck Neuro consult.
--- NOTE | 2018-03-05 12:37 | CP.PCM.PN ---
Subjective - Date & Time of Evaluation Date of Evaluation: 03/05/18 Time of Evaluation: 12:36 - Subjective Subjective: Noted persistent confusion. Has no seizure in the last 24 hrs. Has no fever Has no chest pain or SOB. Objective - Vital Signs/Intake and Output Vital Signs (last 24 hours): Temp Pulse Resp BP Pulse Ox 98.5 F 89 20 98/65 L 90 L 03/05/18 12:09 03/05/18 12:09 03/05/18 12:09 03/05/18 12:09 03/05/18 12:09 - Medications Medications: Current Medications Amlodipine Besylate (Norvasc) 5 mg PO DAILY [facility] Atorvastatin Calcium (Lipitor) 20 mg PO DAILY [facility] Last Admin: 03/05/18 09:02 Dose: 20 mg Cyproheptadine HCl (Periactin) 4 mg PO Q8 [facility] Last Admin: 03/05/18 09:01 Dose: 4 mg Enalapril Maleate (Vasotec) 20 mg PO DAILY [facility] Last Admin: 03/05/18 09:02 Dose: Not Given Sodium Chloride (Sodium Chloride 0.9%) 1,000 mls @ 60 mls/hr IV .[id number] [facility] Stop: 03/05/18 20:35 Last Admin: 03/04/18 21:12 Dose: 60 mls/hr Levothyroxine Sodium (Synthroid) 75 mcg PO DAILY@0630 [facility] Last Admin: 03/05/18 05:37 Dose: 75 mcg Memantine (Namenda) 10 mg PO BID [facility] Last Admin: 03/05/18 09:00 Dose: 10 mg Mirtazapine (Remeron) 15 mg PO HS [facility] Last Admin: 03/04/18 21:32 Dose: 15 mg Pantoprazole Sodium (Protonix Ec Tab) 20 mg PO DAILY [facility] Last Admin: 03/05/18 09:00 Dose: 20 mg Sertraline HCl (Zoloft) 100 mg PO HS [facility] Last Admin: 03/04/18 21:32 Dose: 100 mg Sitagliptin Phosphate (Januvia) 25 mg PO DAILY [facility] Last Admin: 03/05/18 09:00 Dose: 25 mg - Labs Labs: 03/04/18 06:50 03/04/18 06:50 - Constitutional Appears: Confused - Head Exam Head Exam: NORMAL INSPECTION - Eye Exam Eye Exam: Normal appearance - Respiratory Exam Respiratory Exam: Clear to Ausculation Bilateral - Cardiovascular Exam Cardiovascular Exam: REGULAR RHYTHM - GI/Abdominal Exam GI & Abdominal Exam: Normal Bowel Sounds - Neurological Exam Neurological Exam: Awake, Oriented x3 Assessment and Plan (1) Withdrawal seizures Status: Acute (2) Dementia Status: Acute - Assessment and Plan (Free Text) Plan: Cont meds monitor Dc to home if stable.
[2018-03-05] MEDS: Sodium Chloride 0.9% 1,000 ML IV SCH (15:27)
[2018-03-06 05:13] LABS: HEMOGLOBIN 9.8 g/dL (12.0-16.0); MEAN CELL VOLUME 88.1 fl (81.0-99.0); MEAN CORPUSCULAR HEMOGLOBIN 29.7 pg (27.0-31.0); MEAN CORPUSCULAR HGB CONC 33.7 g/dL (33.0-37.0); RBC 3.28 Mil/uL (3.80-5.20); WHITE BLOOD COUNT 10.6 K/uL (4.8-10.8)
[2018-03-06 05:31] LABS: ALB/GLOB RATIO 1.2 (1.0-2.1); ALBUMIN 3.6 g/dL (3.5-5.0); CALCIUM 9.6 mg/dL (8.4-10.2)
[2018-03-06] MEDS: Levothyroxine 75 MCG TAB PO SCH (05:47)
[2018-03-06] MEDS: Pantoprazole 20 mg EC Tab PO SCH (08:54)
--- NOTE | 2018-03-06 13:31 | CP.PCM.PN ---
Subjective - Date & Time of Evaluation Date of Evaluation: 03/06/18 Time of Evaluation: 13:29 - Subjective Subjective: Patient remains stable. Has no chest pain Gets very confused a lot Awaiting for Psych eval Has no fever Latest labs are normal. Objective - Vital Signs/Intake and Output Vital Signs (last 24 hours): Temp Pulse Resp BP Pulse Ox 98.1 F 84 18 94/57 L 96 03/06/18 12:35 03/06/18 12:35 03/06/18 12:35 03/06/18 12:35 03/06/18 12:35 - Medications Medications: Current Medications Amlodipine Besylate (Norvasc) 5 mg PO DAILY [facility] Last Admin: 03/06/18 08:54 Dose: Not Given Atorvastatin Calcium (Lipitor) 20 mg PO DAILY [facility] Last Admin: 03/06/18 08:53 Dose: 20 mg Cyproheptadine HCl (Periactin) 4 mg PO Q8 [facility] Last Admin: 03/06/18 08:53 Dose: 4 mg Enalapril Maleate (Vasotec) 20 mg PO DAILY [facility] Last Admin: 03/06/18 08:54 Dose: Not Given Levothyroxine Sodium (Synthroid) 75 mcg PO DAILY@0630 [facility] Last Admin: 03/06/18 05:47 Dose: Not Given Memantine (Namenda) 10 mg PO BID [facility] Last Admin: 03/06/18 08:54 Dose: 10 mg Mirtazapine (Remeron) [address] [facility] Last Admin: 03/05/18 21:30 Dose: 15 mg Pantoprazole Sodium (Protonix Ec Tab) 20 mg PO DAILY [facility] Last Admin: 03/06/18 08:54 Dose: 20 mg Sertraline HCl (Zoloft) 100 mg [address] [facility] Last Admin: 03/05/18 21:30 Dose: 100 mg Sitagliptin Phosphate (Januvia) 25 mg PO DAILY [facility] Last Admin: 03/06/18 08:53 Dose: 25 mg - Labs Labs: 03/06/18 04:20 03/06/18 04:20 - Head Exam Head Exam: NORMAL INSPECTION - Eye Exam Eye Exam: Normal appearance - ENT Exam ENT Exam: Mucous Membranes Moist - Cardiovascular Exam Cardiovascular Exam: REGULAR RHYTHM - GI/Abdominal Exam GI & Abdominal Exam: Normal Bowel Sounds - Neurological Exam Neurological Exam: Awake, Oriented x3 - Psychiatric Exam Psychiatric exam: Normal Mood Assessment and Plan (1) Dementia Status: Acute (2) Diabetes mellitus type 2 in nonobese Status: Acute (3) Failure to thrive in adult Status: Acute (4) Delirium Status: Acute - Assessment and Plan (Free Text) Plan: Cont meds Cont tx Homemaker is interested in getting custody on the patient will discuss with Social work.
--- NOTE | 2018-03-06 14:23 | CP.PCM.CON ---
History of Present Illness - History of Present Illness History of Present Illness: This is a 77 y/o female with hx of dementia admitted few episodes of tonic clonic seizure initially a home and another witnessed one at the ER. pt on evaluation, confused , oriented to person only not to place or time unable to answer questions of the undersigned, just smiling no behavioral disturbances, reported by staff denied s/hi denied perceptual disturbances Past Patient History - Past Medical History & Family History Past Medical History?: Yes - Past Social History Smoking Status: Former Smoker - CARDIAC Hx Cardiac Disorders: Yes Hx Hypercholesterolemia: Yes Hx Hypertension: Yes - PULMONARY Hx Respiratory Disorders: Yes Hx Asthma: Yes - NEUROLOGICAL Hx Neurological Disorder: Yes Hx Alzheimer's Disease: Yes Hx Dementia: Yes - HEENT Hx HEENT Problems: No - RENAL Hx Chronic Kidney Disease: No - ENDOCRINE/METABOLIC Hx Endocrine Disorders: Yes Hx Diabetes Mellitus Type 2: Yes Hx Hypothyroidism: Yes - HEMATOLOGICAL/ONCOLOGICAL Hx Blood Disorders: Yes Hx Cancer: Yes (Cervical) - INTEGUMENTARY Hx Dermatological Problems: No - MUSCULOSKELETAL/RHEUMATOLOGICAL Hx Musculoskeletal Disorders: Yes Hx Arthritis: Yes Hx Falls: Yes - GASTROINTESTINAL Hx Gastrointestinal Disorders: Yes Hx Gastritis: Yes - GENITOURINARY/GYNECOLOGICAL Hx Genitourinary Disorders: Yes Hx Cervical Cancer: Yes - PSYCHIATRIC Hx Psychophysiologic Disorder: No Hx Substance Use: No - SURGICAL HISTORY Hx Surgeries: Yes Hx Hysterectomy: Yes - ANESTHESIA Hx Anesthesia: Yes Hx Anesthesia Reactions: No Hx Malignant Hyperthermia: No Meds Allergies/Adverse Reactions: Allergies Allergy/AdvReac Type Severity Reaction Status Date / Time No Known Allergies Allergy Verified 03/03/18 14:47 - Medications Medications: Current Medications Amlodipine Besylate (Norvasc) 5 mg PO DAILY [facility] Last Admin: 03/06/18 08:54 Dose: Not Given Atorvastatin Calcium (Lipitor) 20 mg PO DAILY [facility] Last Admin: 03/06/18 08:53 Dose: 20 mg Cyproheptadine HCl (Periactin) 4 mg PO Q8 [facility] Last Admin: 03/06/18 08:53 Dose: 4 mg Enalapril Maleate (Vasotec) 20 mg PO DAILY [facility] Last Admin: 03/06/18 08:54 Dose: Not Given Levothyroxine Sodium (Synthroid) 75 mcg PO DAILY@0630 [facility] Last Admin: 03/06/18 05:47 Dose: Not Given Memantine (Namenda) 10 mg PO BID [facility] Last Admin: 03/06/18 08:54 Dose: 10 mg Mirtazapine (Remeron) 15 mg PO HS [facility] Last Admin: 03/05/18 21:30 Dose: 15 mg Pantoprazole Sodium (Protonix Ec Tab) 20 mg PO DAILY [facility] Last Admin: 03/06/18 08:54 Dose: 20 mg Sertraline HCl (Zoloft) 100 mg PO HS [facility] Last Admin: 03/05/18 21:30 Dose: 100 mg Sitagliptin Phosphate (Januvia) 25 mg PO DAILY [facility] Last Admin: 03/06/18 08:53 Dose: 25 mg Results - Vital Signs Recent Vital Signs: Last Vital Signs Temp 98.1 F 03/06/18 12:35 Pulse 84 03/06/18 12:35 Resp 18 03/06/18 12:35 BP 94/57 L 03/06/18 12:35 Pulse Ox 96 03/06/18 12:35 - Labs Result Diagrams: 03/06/18 04:20 03/06/18 04:20 Labs: Laboratory Results - last 24 hr 03/05/18 03/05/18 03/06/18 16:29 21:21 04:20 WBC 10.6 RBC 3.28 L Hgb 9.8 L Hct 28.9 L MCV 88.1 MCH 29.7 MCHC 33.7 RDW 14.0 Plt Count 252 Sodium Potassium Chloride Carbon Dioxide Anion Gap BUN Creatinine Est GFR ( Amer) Est GFR (Non-Af Amer) POC Glucose (mg/dL) 138 H 157 H Random Glucose Calcium Total Bilirubin AST ALT Alkaline Phosphatase Total Protein Albumin Globulin Albumin/Globulin Ratio 03/06/18 03/06/18 04:20 05:10 WBC RBC Hgb Hct MCV MCH MCHC RDW Plt Count Sodium 144 Potassium 4.3 Chloride 111 H Carbon Dioxide 26 Anion Gap 11 BUN 22 H Creatinine 1.6 H Est GFR ( Amer) 38 Est GFR (Non-Af Amer) 31 POC Glucose (mg/dL) 97 Random Glucose 101 Calcium 9.6 Total Bilirubin 0.3 AST 35 ALT 44 Alkaline Phosphatase 61 Total Protein 6.6 Albumin 3.6 Globulin 3.1 Albumin/Globulin Ratio 1.2 Assessment & Plan - Assessment and Plan (Free Text) Assessment: major neurocognitive disorders Plan: continue with namenda 10mg bid pt noted to be on high dose of antidepressant continue zoloft decrease remeron to 7.5mg qhs
[2018-03-06 23:53] VITALS: RESP 18
[2018-03-07] MEDS: Levothyroxine 75 MCG TAB PO SCH (06:29)
[2018-03-07] MEDS: Pantoprazole 20 mg EC Tab PO SCH (08:34)
--- NOTE | 2018-03-07 11:59 | CP.PCM.DIS ---
Addendum entered and electronically signed by Kenn Balderas MD 03/10/18 15:06: Admission diagnosis: 1) seizures 2) Benzodiazepine withrawal Original Note: Provider - Provider Date of Admission: 03/03/18 14:44 Attending physician: Hayden Lebron MD Consults: Neurology: Dr Bear Psych: Dr Ross Time Spent in preparation of Discharge (in minutes): 30 Hospital Course - Lab Results Lab Results: Most Recent Lab Values WBC 10.6 K/uL (4.8-10.8) 03/06/18 04:20 RBC 3.28 Mil/uL (3.80-5.20) L 03/06/18 04:20 Hgb 9.8 g/dL (12.0-16.0) L 03/06/18 04:20 Hct 28.9 % (34.0-47.0) L 03/06/18 04:20 MCV 88.1 fl (81.0-99.0) 03/06/18 04:20 MCH 29.7 pg (27.0-31.0) 03/06/18 04:20 MCHC 33.7 g/dL (33.0-37.0) 03/06/18 04:20 RDW 14.0 % (11.5-14.5) 03/06/18 04:20 Plt Count 252 K/uL (130-400) 03/06/18 04:20 MPV 8.7 fl (7.2-11.7) 03/03/18 15:15 Neut % (Auto) 70.9 % (50.0-75.0) 03/03/18 15:15 Lymph % (Auto) 18.1 % (20.0-40.0) L 03/03/18 15:15 [place] % (Auto) 5.7 % (0.0-10.0) 03/03/18 15:15 Eos % (Auto) 4.1 % (0.0-4.0) H 03/03/18 15:15 Baso % (Auto) 1.2 % (0.0-2.0) 03/03/18 15:15 Neut # (Auto) 6.7 K/uL (1.8-7.0) 03/03/18 15:15 Lymph # (Auto) 1.7 K/uL (1.0-4.3) 03/03/18 15:15 [place] # (Auto) 0.5 K/uL (0.0-0.8) 03/03/18 15:15 Eos # (Auto) 0.4 K/uL (0.0-0.7) 03/03/18 15:15 Baso # (Auto) 0.1 K/uL (0.0-0.2) 03/03/18 15:15 Sodium 144 mmol/l (132-148) 03/06/18 04:20 Potassium 4.3 MMOL/L (3.6-5.0) 03/06/18 04:20 Chloride 111 mmol/L (98-107) H 03/06/18 04:20 Carbon Dioxide 26 mmol/L (22-30) 03/06/18 04:20 Anion Gap 11 (10-20) 03/06/18 04:20 BUN 22 mg/dl (7-17) H 03/06/18 04:20 Creatinine 1.6 mg/dl (0.7-1.2) H 03/06/18 04:20 Est GFR ( Amer) 38 03/06/18 04:20 Est GFR (Non-Af Amer) 31 03/06/18 04:20 POC Glucose (mg/dL) 148 mg/dL (65-110) H 03/07/18 11:02 Random Glucose 101 mg/dL (65-105) 03/06/18 04:20 Calcium 9.6 mg/dL (8.4-10.2) 03/06/18 04:20 Total Bilirubin 0.3 mg/dl (0.2-1.3) 03/06/18 04:20 AST 35 U/L (14-36) 03/06/18 04:20 ALT 44 U/L (9-52) 03/06/18 04:20 Alkaline Phosphatase 61 U/L (38-126) 03/06/18 04:20 Total Protein 6.6 G/DL (6.3-8.2) 03/06/18 04:20 Albumin 3.6 g/dL (3.5-5.0) 03/06/18 04:20 Globulin 3.1 gm/dL (2.2-3.9) 03/06/18 04:20 Albumin/Globulin Ratio 1.2 (1.0-2.1) 03/06/18 04:20 - Hospital Course Hospital Course: This is a 77 y/o female with hx of dementia that was admitted due to episodes of tonic clonic seizure initially at home and another witnessed one at the ER. She has been on Temazepam which was discontinued due to increasing lethargy. Patient was evaluated by neurology who not recommends Seizure meds at this time. Patient asymptomatic and stable at discharge time. Patient to f/u with PMD in 2-3 days. Discharge Exam - Head Exam Head Exam: NORMAL INSPECTION - Eye Exam Eye Exam: EOMI, PERRL - Respiratory Exam Respiratory Exam: Clear to PA & Lateral - Cardiovascular Exam Cardiovascular Exam: REGULAR RHYTHM. absent: Tachycardia - GI/Abdominal Exam GI & Abdominal Exam: Normal Bowel Sounds, Soft. absent: Tenderness - Neurological Exam Neurological exam: Alert, CN II-XII Intact, Oriented x3 - Skin Skin Exam: Dry, Warm Discharge Plan - Discharge Medications Prescriptions: Zolpidem [Ambien] 5 mg PO HS #3 tab - Follow Up Plan Condition: FAIR Disposition: HOME/ ROUTINE Instructions: Seizures, Adult (DC), Delirium (Confusion) (DC), Zolpidem Additional Instructions: follow up with in 1 week d/c pradeep grecot for sleep Referrals: Jonel Jerry MD [Family Provider] - Hayden Lebron MD [Staff Provider] -
[2018-03-07 12:29] VITALS: TEMP 98.2
[2018-03-07 16:31] VITALS: BP 116/63; PULSE 81; O2SAT 96
== END 2018-03-07 17:45 | disposition home health service (06) | DRG 897 ==
LOC: H.ER 14:00 → H.ERHOLD 14:44 → OBSVTOIN 14:44 → H.TEL 03-04 01:08
PROVIDERS: ADMIT Family Medicine; ATTEND Family Medicine
DX: F13.239 Sedative, hypnotic or anxiolytic dependence with withdrawal, unspecified (principal); F05 Delirium due to known physiological condition; R56.9 Unspecified convulsions; T42.4X5A Adverse effect of benzodiazepines, initial encounter; F02.80 Dementia in other diseases classified elsewhere, unspecified severity, without behavioral disturbance, psychotic disturbance, mood disturbance, and anxiety; G30.9 Alzheimer's disease, unspecified; E11.9 Type 2 diabetes mellitus without complications; E03.9 Hypothyroidism, unspecified; I10 Essential (primary) hypertension; R62.7 Adult failure to thrive; E78.00 Pure hypercholesterolemia, unspecified; K29.70 Gastritis, unspecified, without bleeding; J45.909 Unspecified asthma, uncomplicated; M19.90 Unspecified osteoarthritis, unspecified site; Y92.89 Other specified places as the place of occurrence of the external cause; Z85.41 Personal history of malignant neoplasm of cervix uteri; Z90.710 Acquired absence of both cervix and uterus; Z79.84 Long term (current) use of oral hypoglycemic drugs; Z87.891 Personal history of nicotine dependence

== ENCOUNTER 2018-04-02 18:57 | Inpatient (IN) | payer MEDICARE, MEDICAID ==
[2018-04-02] MEDS ORDERED: Sodium Chloride 0.9% 1,000 ML IV SCH (19:00)
[2018-04-02 19:01] VITALS: BMI 24.1
[2018-04-02 19:14] LABS: VENOUS BLOOD GAS BASE EXCESS 1.9 mmol/L (0.0-2.0); VENOUS BLOOD GAS PCO2 55 mmHg (40-60); VENOUS BLOOD GAS PO2 23 mm/Hg (30-55); VENOUS BLOOD PH 7.33 (7.32-7.43)
[2018-04-02 19:17] LABS: BASO # 0.1 K/uL (0.0-0.2); EOS # 0.5 K/uL (0.0-0.7); EOS % 6.4 % (0.0-4.0); HEMOGLOBIN 9.5 g/dL (12.0-16.0); LYMPH % 36.2 % (20.0-40.0); MEAN CELL VOLUME 92.4 fl (81.0-99.0); MEAN CORPUSCULAR HEMOGLOBIN 30.2 pg (27.0-31.0); MEAN CORPUSCULAR HGB CONC 32.6 g/dL (33.0-37.0); MEAN PLATELET VOLUME 8.9 fl (7.2-11.7); MONO # 0.5 K/uL (0.0-0.8); MONO % 5.9 % (0.0-10.0); NEUT # 4.2 K/uL (1.8-7.0); NEUT % 50.5 % (50.0-75.0); NRBC % 0.1 % (0.0-0.0); RBC 3.17 Mil/uL (3.80-5.20); RED CELL DISTRIBUTION WIDTH 15.4 % (11.5-14.5); WHITE BLOOD COUNT 8.4 K/uL (4.8-10.8)
[2018-04-02 19:24] LABS: PARTIAL THROMBOPLASTIN TIME 32.6 Seconds (25.6-37.1)
--- NOTE | 2018-04-02 19:29 | ED PDOC ---
HPI: Altered Mental Status Time Seen by Provider: 04/02/18 19:00 Chief Complaint (Nursing): Altered Mental Status Chief Complaint (Provider): Altered Mental Status History Per: Patient History/Exam Limitations: None Onset/Duration Of Symptoms: Mins Current Symptoms Are (Timing): Still Present Description Of Symptoms: Unresponsive Usual Baseline: Non-verbal Associated Symptoms: Disoriented Additional Complaint(s): Bernadette Melo is a 77 year old female with a past medical history of advanced Alzheimers, dementia, hypertension, diabetes, and hyperlipidemia who according to [facility], experienced sudden onset unresponsiveness while at home watching TV 10 minutes prior to arrival. Patient was last seen normal 10 minutes prior to that, and witnesses are not in ED to give complete report. It is unknown if patient has taken any medications prior to onset of symptoms and she is unable to give any history. PMD: David Jerry Past Medical History Reviewed: Historical Data, Nursing Documentation, Vital Signs Vital Signs: Last Vital Signs Temp 97.1 F L 04/02/18 19:01 Pulse 76 04/02/18 19:01 Resp 22 04/02/18 19:01 BP 114/51 L 04/02/18 19:01 Pulse Ox 100 04/02/18 19:01 - Medical History PMH: Alzheimer's Disease, Arthritis, Asthma, Dementia, Diabetes, Gastritis, HTN, Hypercholesterolemia, Hypothyroidism Denies: Chronic Kidney Disease - Surgical History Other surgeries: hysterectomy - Family History Family History: States: Unknown Family Hx - Social History Current smoker - smoking cessation education provided: No Alcohol: None Drugs: Denies - Home Medications Home Medications: Ambulatory Orders Medication Instructions Recorded RX: Enalapril Maleate [Vasotec] 20 mg PO DAILY 02/28/17 RX: Memantine HCl [Namenda Xr] 28 mg PO DAILY 02/28/17 RX: Omeprazole 20 mg PO DAILY 02/28/17 RX: amLODIPine [Norvasc] 10 mg PO DAILY 02/28/17 RX: Cyproheptadine HCl 4 mg PO Q8 11/05/17 RX: Rosuvastatin Calcium [Crestor] 10 mg PO DAILY 11/05/17 RX: Levothyroxine [Synthroid] 75 mcg PO DAILY 03/03/18 RX: Sertraline [Zoloft] 100 mg PO HS 03/03/18 RX: metFORMIN [glucOPHAGE] 850 mg PO BID 03/03/18 Zolpidem [Ambien] 5 mg PO HS #3 tab 03/07/18 - Allergies Allergies/Adverse Reactions: Allergies Allergy/AdvReac Type Severity Reaction Status Date / Time No Known Allergies Allergy Verified 04/02/18 19:00 Review of Systems ROS Statement: Except As Marked, All Systems Reviewed And Found Negative Review Of Systems: ROS cannot be obtained secondary to pt's inabilty to answer questions. Physical Exam - Reviewed Nursing Documentation Reviewed: Yes Vital Signs Reviewed: Yes - Physical Exam Appears: Positive for: In Acute Distress (acute neurological distress). Negative for: Well ((+) appears chronically ill ) Head Exam: Positive for: ATRAUMATIC, NORMOCEPHALIC Skin: Positive for: Warm, Dry, Pallor Eye Exam: Positive for: EOMI ENT: Positive for: Normal ENT Inspection, Other (dry mucous membranes, adentulous ) Neck: Positive for: Painless ROM, Supple Cardiovascular/Chest: Positive for: Regular Rate, Rhythm. Negative for: Murmur Respiratory: Positive for: Normal Breath Sounds. Negative for: Respiratory Distress Gastrointestinal/Abdominal: Positive for: Soft. Negative for: Tenderness Back: Positive for: Normal Inspection. Negative for: Decreased ROM Extremity: Positive for: Normal ROM. Negative for: Deformity Lymphatic: Negative for: Adenopathy Neurologic/Psych: Positive for: Other ( response to voice: opening eyes moving extremities equally non verbal GCS: ). Negative for: Alert ((+) obtunded), Oriented - Laboratory Results Result Diagrams: 04/03/18 12:35 04/03/18 12:35 - ECG O2 Sat by Pulse Oximetry: 100 (RA) Pulse Ox Interpretation: Normal - Progress Re-evaluation Time: 22:00 Condition: Unchanged (continuous to be sleeping deeply and difficult to rouse, but vitals stable) - Critical Care Total Time (In Min): 30 Documented Critical Care: Time excludes all time spent performint seperately billable procedures Medical Decision Making Medical Decision Making: Time: 18:45 Impression: altered mental status Differentials: CVA, intracranial hemorrhage, metabolic encephalopathy, dehydration, adverse medication effect, electrolyte abnormality, dementia Plan: --Code stroke called due to sudden onset of symptoms and concern of ICH --Blood Type and Screen --VBG Shock Panel --CT Head --EKG --Alcohol Serum --CMP --Drug Screen --Hemoglobin A1C --Lipid Panel --Magnesium --Phosphorous --TSH --Troponin --CBC --Coags --Chest x-ray --Ativan 2 mg IVP --IV Fluids --Blood Culture --Urine Culture --Urinalysis CT Head: FINDINGS: BRAIN No acute intraparenchymal hemorrhage. No mass lesion. No CT evidence for acute territorial infarct. No midline shift or extra-axial collections. There is mild brain atrophy and ventricular dilatation. VENTRICLES: No hydrocephalus. ORBITS: The orbits are unremarkable. SINUSES AND MASTOIDS: Inflammatory changes present within the ethmoid and maxillary sinuses. BONES: No fracture. SOFT TISSUES: Unremarkable. IMPRESSION: No acute intracranial abnormality. Mild brain atrophy and ventricular dilatation. Inflammatory changes within the ethmoid and maxillary sinuses. 19:30 Talked to homemaker Rosmery Osborne. She reports that patient was watching tv and she had given her a sleeping pill half an hour prior. Patient had been watching tv when she suddenly became very weak and was not talking. 19:[address] Bear in neurology, he states she is not a candidate for thrombolitics given non focal at this time only demonstrating obtundation. Dr. Bear recommends iv fluids and EEG in the morning for possible seizure and post ictal state. Labs demonstrate possible hypothyroid. IV Thyroxine ordered. Scribe Attestation: Documented by, Spring Claros acting as a scribe for Amalia Frausto MD. Provider Scribe Attestation: All medical record entries made by the Scribe were at my direction and p ersonally dictated by me. I have reviewed the chart and agree that the record accurately reflects my personal performance of the history, physical exam, medical decision making, and the department course for this patient. I have also personally directed, reviewed, and agree with the discharge instructions and disposition. Disposition - Clinical Impression Clinical Impression: Altered mental status, Hypothyroid - Disposition Disposition Time: 19:55 Condition: SERIOUS - Pt Status Changed To: Hospital Disposition Of: Inpatient - Admit Certification Admit to Inpatient:: After my assessment, the patient will require hospitalization for at least two midnights. This is because of the severity of symptoms shown, intensity of services needed, and/or the medical risk in this patient being treated as an outpatient. - POA Present On Arrival: Falls Or Trauma (risk due to mental status)
[2018-04-02 19:37] LABS: ALB/GLOB RATIO 1.5 (1.0-2.1); ALBUMIN 4.3 g/dL (3.5-5.0); ALT/SGPT 74 U/L (9-52); AST/SGOT 79 U/L (14-36); BLOOD UREA NITROGEN 25 mg/dl (7-17); CALCIUM 9.5 mg/dL (8.4-10.2); GFR NON-AFRICAN AMERICAN 29; HDL CHOLESTEROL 58 MG/DL (30-70)
[2018-04-02 19:40] LABS: LDL CHOLESTEROL 61 mg/dL (0-129)
[2018-04-02] MEDS ORDERED: Sodium Chloride 0.9% 1,000 ML IV STA (19:49)
[2018-04-02] MEDS: Sodium Chloride 0.9% 1,000 ML IV SCH (19:57)
[2018-04-02 22:03] LABS: SQUAMOUS EPITHIAL < 1 /hpf (0-5); URINE BILIRUBIN NEGATIVE (NEGATIVE); URINE BLOOD NEGATIVE (NEGATIVE); URINE CLARITY SLIGHTY-CLOUDY (Clear); URINE COLOR YELLOW (YELLOW); URINE GLUCOSE (UA) NEG (Normal); URINE HYALINE CAST 0-2 /hpf (0-2); URINE LEUKOCYTE ESTERASE SMALL Leu/uL (Negative); URINE PROTEIN NEGATIVE (NEGATIVE); URINE UROBILINOGEN 0.2-1.0 mg/dL (0.2-1.0)
[2018-04-02 22:15] LABS: BENZODIAZEPINES, UR NEGATIVE (NEGATIVE)
[2018-04-02 22:20] LABS: BARBITURATES, UR NEGATIVE (NEGATIVE); OPIATES, UR NEGATIVE (NEGATIVE); PHENCYCLIDINE, UR NEGATIVE (NEGATIVE)
[2018-04-02] MEDS ORDERED: Levothyroxine 200 mcg (0.2 mg) Inj IVP STA (22:39)
[2018-04-03] MEDS ORDERED: Levothyroxine 75 MCG TAB PO SCH (07:00)
[2018-04-03] MEDS ORDERED: Levothyroxine 100 MCG TAB PO STA (07:20)
[2018-04-03] MEDS ORDERED: Patient's Own Med (Memantine Hcl [Namenda Xr] 28 MG) PO SCH (09:00)
[2018-04-03] MEDS ORDERED: Patient's Own Med (Rosuvastatin Calcium [Crestor] 10 MG) PO SCH (09:00)
[2018-04-03] MEDS: Pantoprazole 20 mg EC Tab PO SCH (09:36)
--- NOTE | 2018-04-03 09:36 | RAD ---
Date of service: 04/02/2018 HISTORY: Code Stroke COMPARISON: Portable chest 11/21/2017. FINDINGS: LUNGS: Questionable increased reticular markings left perihilar and mid lung zone. No alveolitis bilaterally. PLEURA: No significant pleural effusion identified, no pneumothorax apparent. CARDIOVASCULAR: No aortic atherosclerotic calcification present. Normal cardiac size. No pulmonary vascular congestion. OSSEOUS STRUCTURES: No significant abnormalities. VISUALIZED UPPER ABDOMEN: Normal. OTHER FINDINGS: None. IMPRESSION: Questionable increased reticular markings left perihilar/mid lung zone. This may reflect atypical pneumonitis or reactive airspace disease. Clinically correlate further. Remainder of the examination is stable and unremarkable otherwise.
[2018-04-03] MEDS: Levothyroxine 100 mcg (0.1 mg) Inj IVP SCH (09:37)
[2018-04-03] MEDS: Sodium Chloride 0.9% 1,000 ML IV SCH (09:41)
--- NOTE | 2018-04-03 11:27 | CT ---
Date of service: 04/02/2018 PROCEDURE: CT HEAD WITHOUT CONTRAST. HISTORY: code stroke COMPARISON: Noncontrast head CT 03/03/2018. TECHNIQUE: Axial computed tomography images were obtained through the head/brain without intravenous contrast. Radiation dose: Total exam DLP = 2735.77 mGy-cm. This CT exam was performed using one or more of the following dose reduction techniques: Automated exposure control, adjustment of the mA and/or kV according to patient size, and/or use of iterative reconstruction technique. FINDINGS: Motion artifacts degrade the quality of this examination significantly. Multiple series were performed to attempt to overcome this problem. HEMORRHAGE: No intracranial hemorrhage. BRAIN: Good corticomedullary differentiation is seen. Proportional, diffuse expansion of the ventriculosulcal and cisternal spaces is appreciated with white matter lucency compatible with diffuse cerebral atrophy and chronic microangiopathy. No suspicious extra-axial fluid collection is identified and the midline brain anatomy appears grossly nonfocal as imaged. There is no mass effect throughout. VENTRICLES: Unremarkable. No hydrocephalus. CALVARIUM: Unremarkable. PARANASAL SINUSES: Unremarkable as visualized. No significant inflammatory changes. MASTOID AIR CELLS: Unremarkable as visualized. No inflammatory changes. OTHER FINDINGS: None. IMPRESSION: Motion artifacted examination. Age-appropriate age related neuro degenerative findings are appreciated without overt CT sign of acute intracranial pathology evident at this time. No definitive significant interval change greater prior head CT 03/03/2018. Clinically correlate with the potential need for possible follow-up cross-sectional brain imaging.
[2018-04-03 12:51] LABS: HEMOGLOBIN 9.7 g/dL (12.0-16.0); MEAN CELL VOLUME 90.9 fl (81.0-99.0); MEAN CORPUSCULAR HEMOGLOBIN 29.8 pg (27.0-31.0); MEAN CORPUSCULAR HGB CONC 32.8 g/dL (33.0-37.0); RBC 3.26 Mil/uL (3.80-5.20); RED CELL DISTRIBUTION WIDTH 14.9 % (11.5-14.5); WHITE BLOOD COUNT 8.4 K/uL (4.8-10.8)
[2018-04-03 12:57] LABS: CALCIUM 9.6 mg/dL (8.4-10.2)
[2018-04-03] MEDS ORDERED: Risperidone M tab 1 MG PO ONE (14:37)
--- NOTE | 2018-04-03 19:24 | CON ---
DATE: 04/03/2018 ENDOCRINOLOGY CONSULTATION LOCATION: In ER Holding, room #10. HISTORY OF PRESENT ILLNESS: This is a 77-year-old female with known history of type 2 diabetes, hypertension, and hypothyroidism, admitted with sudden onset of unresponsiveness and altered mental status and was found to have profound hypothyroidism and is now being referred for endocrine evaluation and management. PAST MEDICAL HISTORY: As mentioned above, the patient has significant history of advanced Alzheimer's dementia and the possibility of her poor adherence to the levothyroxine medication is a very strong factor to the aforementioned condition at this time. She was apparently supposed to be on levothyroxine at 75 mcg daily as ordered; history of type 2 diabetes, on metformin given as 850 mg b.i.d.; history of hypertension and dyslipidemia; history of diffuse osteoarthritis with lower back pain and knee arthralgias. FAMILY HISTORY: Positive for hypertension and diabetes. SOCIAL HISTORY: The patient has supportive family. No known substance use. REVIEW OF SYSTEMS: As mentioned above, was found by the family to have increasing bouts of hypersomnolence, lethargy, and generalized body weakness with a brief bout of unresponsiveness as noted thereof today. Also admits to recent bouts of dizziness and lightheadedness with near-syncopal episodes as noted. No chest pains or palpitations, but admits to progressive shortness of breath, especially on exertion. Her oral intake has been variable with nausea, dyspepsia, and vague upper abdominal pains with habitual constipation. PHYSICAL EXAMINATION: GENERAL: An average built female, in no apparent distress. VITAL SIGNS: Blood pressure 140/80; pulse of 60 beats per minute, regular; temperature 98; respirations 20; height is 5 feet 5 inches; weight is 145 pounds. HEENT: Head: Normocephalic. Eyes: Anicteric with pink conjunctivae. Funduscopy not possible at this time. Ears, nose and throat: Otherwise normal. Her face, there is tremendous and marked facial and periorbital edema as noted. NECK: Supple. Thyroid gland is firm and nontender, with no overt thyromegaly or thyroid nodules. HEART: Adynamic precordium. S1, S2 are slow and regular. LUNGS: Clear to auscultation. ABDOMEN: Flat, soft, with positive bowel sounds. EXTREMITIES: No peripheral edema. Pulses are +2 bilaterally. LABORATORY DATA : Her initial TSH is 182. Chemistries; BUN of 25, sodium 142, potassium 4.9, chloride 109, CO2 23, glucose 112, and creatinine 1.7. Her free T4 is 0.22. ASSESSMENT: This is a 77-year-old female presenting here with near myxedema and concomitant marked hypothyroidism both historically, clinically, and biochemically most likely related to underlying autoimmune thyroiditis with significant history of advanced Alzheimer's dementia with possible recent drug omission as noted thereof. PLAN OF MANAGEMENT: We will change the levothyroxine to parenteral administration because of the marked myxedema and gastric mucosal edema and impeding the oral absorption of levothyroxine accordingly. We will change the levothyroxine to 100 mcg IV push once daily as ordered. We will obtain a comprehensive thyroid hormonal profile to include the thyroid peroxidase antibody, which will confirm and the presence of underlying thyroid autoimmunity. We will obtain serial chemistries and supplement accordingly as needed. We will follow. Nida Estrada MD
[2018-04-04] MEDS: Sodium Chloride 0.9% 1,000 ML IV SCH ×2 (00:06→15:40)
[2018-04-04 05:58] LABS: ALB/GLOB RATIO 1.4 (1.0-2.1); ALBUMIN 3.6 g/dL (3.5-5.0); CALCIUM 9.3 mg/dL (8.4-10.2)
[2018-04-04 06:08] LABS: T4 3.37 ug/dl (5.5-11.0)
--- NOTE | 2018-04-04 06:59 | CP.PCM.HP ---
History of Present Illness - History of Present Illness History of Present Illness: This is a 77 y/o female with hx of HTn dementia mild DM 2 and hyperlipidemia was admitted due to sudden change in mental state. Homemaker claims that while watching TV had a brief period of unresponsiveness. Homemaker claims that she had not been sleeping well at night since Ambien was stopped by PMD. Hence she tends to have daytime sleepiness as a result. Has no fever SOB or chest pain Has no GI sx. Present on Admission - Present on Admission Any Indicators Present on Admission: No History of DVT/PE: No History of Uncontrolled Diabetes: No Urinary Catheter: No Decubitus Ulcer Present: No Review of Systems - Constitutional Constitutional: Lethargy Additional comments: poor sleep daytime sleepiness - Psychiatric Psychiatric: Abnormal Sleep Pattern, Confusion, Memory Loss Past Patient History - Past Medical History & Family History Past Medical History?: Yes - Past Social History Smoking Status: Never Smoked - CARDIAC Hx Cardiac Disorders: Yes (HTN, hypercholesterolemia) - PULMONARY Hx Respiratory Disorders: Yes (asthma) - NEUROLOGICAL Hx Neurological Disorder: Yes (dementia, alzheimers) - HEENT Hx HEENT Problems: No - RENAL Hx Chronic Kidney Disease: No - ENDOCRINE/METABOLIC Hx Endocrine Disorders: Yes (DM, hypothyroidism) - HEMATOLOGICAL/ONCOLOGICAL Hx AIDS: No Hx Human Immunodeficiency Virus (HIV): No - INTEGUMENTARY Hx Dermatological Problems: No - MUSCULOSKELETAL/RHEUMATOLOGICAL Hx Falls: No - GASTROINTESTINAL Hx Gastritis: Yes - GENITOURINARY/GYNECOLOGICAL Hx Genitourinary Disorders: Yes (cervical ca) - PSYCHIATRIC Hx Substance Use: No - SURGICAL HISTORY Hx Surgeries: Yes Hx Hysterectomy: Yes - ANESTHESIA Hx Anesthesia: Yes Hx Anesthesia Reactions: No Hx Malignant Hyperthermia: No Meds Allergies/Adverse Reactions: Allergies Allergy/AdvReac Type Severity Reaction Status Date / Time No Known Allergies Allergy Verified 04/02/18 19:00 Physical Exam - Head Exam Head Exam: NORMAL INSPECTION - Eye Exam Eye Exam: Normal appearance - ENT Exam ENT Exam: Mucous Membranes Moist - Respiratory Exam Respiratory Exam: Clear to Auscultation Bilateral - Cardiovascular Exam Cardiovascular Exam: REGULAR RHYTHM - GI/Abdominal Exam GI & Abdominal Exam: Normal Bowel Sounds - Neurological Exam Neurological exam: CN II-XII Intact, Oriented x3 Results - Vital Signs Recent Vital Signs: Last Vital Signs Temp 97.3 F L 04/04/18 00:27 Pulse 67 04/04/18 00:27 Resp 20 04/04/18 00:27 BP 111/66 04/04/18 00:27 Pulse Ox 100 04/04/18 00:27 - Labs Result Diagrams: 04/03/18 12:35 04/04/18 05:04 Labs: Laboratory Results - last 24 hr 04/02/18 04/02/18 04/02/18 18:55 19:20 21:44 WBC RBC Hgb Hct MCV MCH MCHC RDW Plt Count Sodium Potassium Chloride Carbon Dioxide Anion Gap BUN Creatinine Est GFR ( Amer) Est GFR (Non-Af Amer) POC Glucose (mg/dL) 107 Random Glucose Hemoglobin A1c 6.0 Calcium Magnesium Total Bilirubin AST ALT Alkaline Phosphatase Total Protein Albumin Globulin Albumin/Globulin Ratio Free T4 Thyroxine (T4) Plasma Cortisol PM 10.4 04/03/18 04/03/18 04/03/18 08:57 12:35 12:35 WBC 8.4 RBC 3.26 L Hgb 9.7 L Hct 29.7 L MCV 90.9 MCH 29.8 MCHC 32.8 L RDW 14.9 H Plt Count 223 Sodium 141 Potassium 4.0 Chloride 109 H Carbon Dioxide 24 Anion Gap 12 BUN 17 Creatinine 1.2 Est GFR ( Amer) 53 Est GFR (Non-Af Amer) 44 POC Glucose (mg/dL) 99 Random Glucose 115 H Hemoglobin A1c Calcium 9.6 Magnesium Total Bilirubin AST ALT Alkaline Phosphatase Total Protein Albumin Globulin Albumin/Globulin Ratio Free T4 Thyroxine (T4) Plasma Cortisol PM 04/03/18 04/04/18 04/04/18 21:38 05:04 05:04 WBC RBC Hgb Hct MCV MCH MCHC RDW Plt Count Sodium 141 Potassium 3.9 Chloride 111 H Carbon Dioxide 25 Anion Gap 9 L BUN 14 Creatinine 1.2 Est GFR ( Amer) 53 Est GFR (Non-Af Amer) 44 POC Glucose (mg/dL) 88 Random Glucose 89 Hemoglobin A1c Calcium 9.3 Magnesium 1.7 Total Bilirubin 0.2 AST 38 H D ALT 52 D Alkaline Phosphatase 55 Total Protein 6.2 L Albumin 3.6 Globulin 2.6 Albumin/Globulin Ratio 1.4 Free T4 0.57 L Thyroxine (T4) 3.37 L Plasma Cortisol PM Assessment & Plan (1) Altered mental status Status: Acute (2) Insomnia Status: Acute (3) Daytime hypersomnia Status: Acute (4) Hypertension Status: Acute (5) Dementia Status: Chronic (6) Hyperlipidemia Status: Chronic (7) Type 2 diabetes mellitus Status: Chronic (8) Anemia Status: Acute - Assessment and Plan (Free Text) Plan: Cont meds Cont tx Cont monitor cbc Neur eval follow up CT scan 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
--- NOTE | 2018-04-04 08:01 | CP.PCM.CON ---
History of Present Illness - History of Present Illness History of Present Illness: Psychiatry consult called to evaluate AMS CC: "I'm fine." HPI: 77 yo female w/ h/o dementia, HTN, DM, HLD, presented w/ sudden onset u nresponsiveness. Patient also had periods of agitation overnight and was started on Risperdal. Now patient is alert, but only oriented to self (her baseline). She denies acute depression/anxiety/AH/VH/SI/HI. Patient is a poor historian due to advanced dementia. PMHx: Dementia, HTN, DM, HLD All: NKDA Impression: 77 yo female w/ h/o dementia, HTN, DM, HLD, presented w/ sudden onset unresponsiveness and also had periods of agitation overnight. Patient appears to be at her baseline of functioning at this time. -No acute psychiatric admission indicated -If patient continues to have behavioral disturbances, can change Risperdal dosing to 0.5 mg PO Daily@1700 or HS -Recommend to stop Ambien and avoid benzodiazepines as they can worsen confusion and cause agitation in the elderly Past Patient History - Past Medical History & Family History Past Medical History?: Yes - Past Social History Smoking Status: Never Smoked - CARDIAC Hx Cardiac Disorders: Yes (HTN, hypercholesterolemia) - PULMONARY Hx Respiratory Disorders: Yes (asthma) - NEUROLOGICAL Hx Neurological Disorder: Yes (dementia, alzheimers) - HEENT Hx HEENT Problems: No - RENAL Hx Chronic Kidney Disease: No - ENDOCRINE/METABOLIC Hx Endocrine Disorders: Yes (DM, hypothyroidism) - HEMATOLOGICAL/ONCOLOGICAL Hx AIDS: No Hx Human Immunodeficiency Virus (HIV): No - INTEGUMENTARY Hx Dermatological Problems: No - MUSCULOSKELETAL/RHEUMATOLOGICAL Hx Falls: No - GASTROINTESTINAL Hx Gastritis: Yes - GENITOURINARY/GYNECOLOGICAL Hx Genitourinary Disorders: Yes (cervical ca) - PSYCHIATRIC Hx Substance Use: No - SURGICAL HISTORY Hx Surgeries: Yes Hx Hysterectomy: Yes - ANESTHESIA Hx Anesthesia: Yes Hx Anesthesia Reactions: No Hx Malignant Hyperthermia: No Meds Allergies/Adverse Reactions: Allergies Allergy/AdvReac Type Severity Reaction Status Date / Time No Known Allergies Allergy Verified 04/02/18 19:00 - Medications Medications: Current Medications Amlodipine Besylate (Norvasc) 10 mg PO DAILY [facility] Last Admin: 04/03/18 08:58 Dose: 10 mg Atorvastatin Calcium (Lipitor) 20 mg PO DAILY [facility] Last Admin: 04/03/18 09:36 Dose: 20 mg Cyproheptadine HCl (Periactin) 4 mg PO Q8 [facility] Last Admin: 04/04/18 01:00 Dose: Not Given Enalapril Maleate (Vasotec) 20 mg PO DAILY [facility] Last Admin: 04/03/18 08:59 Dose: 20 mg Sodium Chloride (Sodium Chloride 0.9%) 1,000 mls @ 75 mls/hr IV .[id number] [facility] Last Admin: 04/04/18 00:06 Dose: 75 mls/hr Levothyroxine Sodium (Synthroid) 100 mcg IVP DAILY [facility] Last Admin: 04/03/18 09:37 Dose: 100 mcg Memantine (Namenda) 10 mg PO BID [facility] Last Admin: 04/03/18 09:36 Dose: 10 mg Metformin HCl (Glucophage) 500 mg PO BID [facility] Last Admin: 04/04/18 04:42 Dose: Not Given Pantoprazole Sodium (Protonix Ec Tab) 20 mg PO DAILY [facility] Last Admin: 04/03/18 09:36 Dose: 20 mg Risperidone (Risperdal Tab) 1 mg PO DAILY [facility] Last Admin: 04/03/18 14:44 Dose: 1 mg Sertraline HCl (Zoloft) 100 mg PO HS [facility] Last Admin: 04/03/18 22:00 Dose: Not Given Zolpidem Tartrate (Ambien) 5 mg PO HS [facility] Last Admin: 04/03/18 22:00 Dose: Not Given Results - Vital Signs Recent Vital Signs: Last Vital Signs Temp 97.3 F L 04/04/18 00:27 Pulse 67 04/04/18 00:27 Resp 20 04/04/18 00:27 BP 111/66 04/04/18 00:27 Pulse Ox 100 04/04/18 00:27 - Labs Result Diagrams: 04/03/18 12:35 04/04/18 05:04 Labs: Laboratory Results - last 24 hr 04/02/18 04/02/18 04/02/18 18:55 19:20 21:44 WBC RBC Hgb Hct MCV MCH MCHC RDW Plt Count Sodium Potassium Chloride Carbon Dioxide Anion Gap BUN Creatinine Est GFR ( Amer) Est GFR (Non-Af Amer) POC Glucose (mg/dL) 107 Random Glucose Hemoglobin A1c 6.0 Calcium Magnesium Total Bilirubin AST ALT Alkaline Phosphatase Total Protein Albumin Globulin Albumin/Globulin Ratio Free T4 Thyroxine (T4) TSH 3rd Generation Plasma Cortisol PM 10.4 04/03/18 04/03/18 04/03/18 08:57 12:35 12:35 WBC 8.4 RBC 3.26 L Hgb 9.7 L Hct 29.7 L MCV 90.9 MCH 29.8 MCHC 32.8 L RDW 14.9 H Plt Count 223 Sodium 141 Potassium 4.0 Chloride 109 H Carbon Dioxide 24 Anion Gap 12 BUN 17 Creatinine 1.2 Est GFR ( Amer) 53 Est GFR (Non-Af Amer) 44 POC Glucose (mg/dL) 99 Random Glucose 115 H Hemoglobin A1c Calcium 9.6 Magnesium Total Bilirubin AST ALT Alkaline Phosphatase Total Protein Albumin Globulin Albumin/Globulin Ratio Free T4 Thyroxine (T4) TSH 3rd Generation Plasma Cortisol PM 04/03/18 04/04/18 04/04/18 21:38 05:04 05:04 WBC RBC Hgb Hct MCV MCH MCHC RDW Plt Count Sodium 141 Potassium 3.9 Chloride 111 H Carbon Dioxide 25 Anion Gap 9 L BUN 14 Creatinine 1.2 Est GFR ( Amer) 53 Est GFR (Non-Af Amer) 44 POC Glucose (mg/dL) 88 Random Glucose 89 Hemoglobin A1c Calcium 9.3 Magnesium 1.7 Total Bilirubin 0.2 AST 38 H D ALT 52 D Alkaline Phosphatase 55 Total Protein 6.2 L Albumin 3.6 Globulin 2.6 Albumin/Globulin Ratio 1.4 Free T4 0.57 L Thyroxine (T4) 3.37 L TSH 3rd Generation 159.00 H Plasma Cortisol PM
[2018-04-04] MEDS: Pantoprazole 20 mg EC Tab PO SCH (08:56)
[2018-04-04] MEDS ORDERED: Influenza Vaccine 60 MCG/0.5 ML SYR (3 yr & up) IM ONE (11:40)
--- NOTE | 2018-04-04 12:20 | CP.PCM.PN ---
Subjective - Date & Time of Evaluation Date of Evaluation: 04/04/18 Time of Evaluation: 09:00 - Subjective Subjective: 77 y/o F was seen and examined with Dr Pryor. Pt reports feeling well, denies chest pain, SOB, abdominal pain, nausea or vomiting. Pt was agitated yesterday as she explains that she does not like to be mistreated. Pt was counseled on the need for her to stay hospitalized, pt seemed to understand and reported she will try to behave patiently. Pt has requested no Benzodiazepines. P afebrile, tolerating PO. --Home street worker was at bedside and explains that the day pt was admitted, pt did not sleep the night before as pt was stopped on her sleeping medications (?Xanax) because they were very strong. As per street worker, pt became sleepy and not responding. Objective - Vital Signs/Intake and Output Vital Signs (last 24 hours): Temp Pulse Resp BP Pulse Ox 97.9 F 93 H 18 131/80 98 04/04/18 09:17 04/04/18 09:17 04/04/18 09:17 04/04/18 09:17 04/04/18 09:17 - Medications Medications: Current Medications Amlodipine Besylate (Norvasc) 10 mg PO DAILY [facility] Last Admin: 04/04/18 08:56 Dose: 10 mg Atorvastatin Calcium (Lipitor) 20 mg PO DAILY [facility] Last Admin: 04/04/18 08:57 Dose: 20 mg Cyproheptadine HCl (Periactin) 4 mg PO Q8 [facility] Last Admin: 04/04/18 08:57 Dose: 4 mg Enalapril Maleate (Vasotec) 20 mg PO DAILY [facility] Last Admin: 04/04/18 08:56 Dose: 20 mg Sodium Chloride (Sodium Chloride 0.9%) 1,000 mls @ 75 mls/hr IV .[id number] [facility] Last Admin: 04/04/18 00:06 Dose: 75 mls/hr Levothyroxine Sodium (Synthroid) 100 mcg IVP DAILY [facility] Last Admin: 04/03/18 09:37 Dose: 100 mcg Memantine (Namenda) 10 mg PO BID [facility] Last Admin: 04/04/18 08:57 Dose: 10 mg Metformin HCl (Glucophage) 500 mg PO BID [facility] Last Admin: 04/04/18 08:56 Dose: 500 mg Pantoprazole Sodium (Protonix Ec Tab) 20 mg PO DAILY [facility] Last Admin: 04/04/18 08:56 Dose: 20 mg Risperidone (Risperdal Tab) 0.5 mg PO HS [facility] Sertraline HCl (Zoloft) 100 mg PO HS [facility] Last Admin: 04/03/18 22:00 Dose: Not Given Zolpidem Tartrate (Ambien) 5 mg PO HS [facility] Last Admin: 04/03/18 22:00 Dose: Not Given - Labs Labs: 04/03/18 12:35 04/04/18 05:04 PT 11.0 Seconds (9.8-13.1) 04/02/18 18:45 INR 1.0 04/02/18 18:45 APTT 32.6 Seconds (25.6-37.1) 04/02/18 18:45 - Constitutional Appears: No Acute Distress - Head Exam Head Exam: ATRAUMATIC, NORMAL INSPECTION - Eye Exam Eye Exam: EOMI - ENT Exam ENT Exam: Mucous Membranes Dry - Neck Exam Neck Exam: Full ROM - Respiratory Exam Respiratory Exam: NORMAL BREATHING PATTERN. absent: Rhonchi, Wheezes, Respir atory Distress - Cardiovascular Exam Cardiovascular Exam: +S1, +S2 - GI/Abdominal Exam GI & Abdominal Exam: Soft. absent: Distended, Firm, Guarding, Tenderness - Extremities Exam Extremities Exam: Full ROM. absent: Calf Tenderness - Neurological Exam Neurological Exam: Alert, Awake Assessment and Plan - Assessment and Plan (Free Text) Assessment: 77 y/o F with A pMHx of HTN, dementia and DM2 was admitted for evaluation and management of altered mental status and uncontrolled hypothyroidism. --TSH 159-elevated. PLAN: --Afebrile, stable -- to agitation and potential aggresive behavior, 1:1 observation --Consult to psychiatry. --Consult to neurology. --Endocrinology on board, Dr Estrada. --Continue management as ordered. Case discussed with Dr Konstantin Steven PGY-2
--- NOTE | 2018-04-04 12:58 | PN ---
DATE: 04/04/2018 ENDO FOLLOWUP NOTE LOCATION: Room 404. SUBJECTIVE: This is a 77-year-old female with advanced Alzheimer's dementia, presenting here with marked hypothyroidism, most likely related to inadvertent drug omission and is now being followed closely for metabolic management. She continues to remain clinically and biochemically markedly hypothyroid with facial and periorbital edema as noted. LABORATORY DATA: Her latest chemistry showed a BUN of 14, sodium 141, potassium 3.9, chloride 111, CO2 25, glucose 89, and creatinine 1.2. Her glucose levels have ranged from 88 to 99 mg/dL. The repeat thyroid studies have improved with a TSH of 159 milliunits/mL, a total T4 of 3.37, and a free T4 of 0.57. ASSESSMENT: This is a 77-year-old female with marked hypothyroidism noted both historically, clinically and biochemically with underlying autoimmune thyroiditis and clearly has recent drug omission with concomitant advanced Alzheimer's dementia as noted. PLAN OF MANAGEMENT: We will continue the parenteral levothyroxine replacement therapy as given with levothyroxine given as 100 mcg IV push once daily as ordered. With the marked near myxedema and also marked edema of the gastric mucosa, would expect impaired obstruction of any oral levothyroxine medications at this time and so it is preferred to give the levothyroxine parenterally as ordered. We will obtain serial thyroid studies and titrate her dose regimen accordingly. We will also obtain serial chemistries and supplement accordingly as needed. We will follow. Nida Estrada MD
[2018-04-04] MEDS: Levothyroxine 100 mcg (0.1 mg) Inj IVP SCH (15:40)
[2018-04-05] MEDS: Pantoprazole 20 mg EC Tab PO SCH (09:46)
[2018-04-05] MEDS: Levothyroxine 100 mcg (0.1 mg) Inj IVP SCH (09:47)
--- NOTE | 2018-04-05 12:59 | CP.PCM.CON ---
History of Present Illness - History of Present Illness History of Present Illness: Neurology Consultation Note: Mrs. Melo is a 77-year-old woman, referred to me by Dr. Lebron, with a past medical history of advanced Dementia, on Namenda, insomnia (was on Ambien), agitation, on Risperdal and depression, on Zoloft, who had an episode of staring and non-responsiveness lasting about 5-10 minutes. The patient has advanced dementia and is a poor historian, but this information was obtained from her diving board assembler. The patient is currently at her baseline and has no complaints. Review of Systems - Review of Systems Systems not reviewed;Unavailable: Altered Mental Status Past Patient History - Past Medical History & Family History Past Medical History?: Yes - Past Social History Smoking Status: Never Smoked - CARDIAC Hx Cardiac Disorders: Yes (HTN, hypercholesterolemia) - PULMONARY Hx Respiratory Disorders: Yes (asthma) - NEUROLOGICAL Hx Neurological Disorder: Yes (dementia, alzheimers) - HEENT Hx HEENT Problems: No - RENAL Hx Chronic Kidney Disease: No - ENDOCRINE/METABOLIC Hx Endocrine Disorders: Yes (DM, hypothyroidism) - HEMATOLOGICAL/ONCOLOGICAL Hx AIDS: No Hx Human Immunodeficiency Virus (HIV): No - INTEGUMENTARY Hx Dermatological Problems: No - MUSCULOSKELETAL/RHEUMATOLOGICAL Hx Falls: No - GASTROINTESTINAL Hx Gastritis: Yes - GENITOURINARY/GYNECOLOGICAL Hx Genitourinary Disorders: Yes (cervical ca) - PSYCHIATRIC Hx Substance Use: No - SURGICAL HISTORY Hx Surgeries: Yes Hx Hysterectomy: Yes - ANESTHESIA Hx Anesthesia: Yes Hx Anesthesia Reactions: No Hx Malignant Hyperthermia: No Meds Home Medications: Home Medication List Medication Instructions Recorded Confirmed Type Risperidone [Risperdal] 0.5 mg PO HS #30 tablet 04/04/18 Rx Allergies/Adverse Reactions: Allergies Allergy/AdvReac Type Severity Reaction Status Date / Time No Known Allergies Allergy Verified 04/02/18 19:00 - Medications Medications: Current Medications Amlodipine Besylate (Norvasc) 10 mg PO DAILY [facility] Last Admin: 04/05/18 09:45 Dose: 10 mg Atorvastatin Calcium (Lipitor) 20 mg PO DAILY [facility] Last Admin: 04/05/18 09:44 Dose: 20 mg Cyproheptadine HCl (Periactin) 4 mg PO Q8 [facility] Last Admin: 04/05/18 09:46 Dose: 4 mg Enalapril Maleate (Vasotec) 20 mg PO DAILY [facility] Last Admin: 04/04/18 08:56 Dose: 20 mg Sodium Chloride (Sodium Chloride 0.9%) 1,000 mls @ 75 mls/hr IV .[id number] [facility] Last Admin: 04/04/18 15:40 Dose: 75 mls/hr Levothyroxine Sodium (Synthroid) 100 mcg IVP DAILY [facility] Last Admin: 04/05/18 09:47 Dose: 100 mcg Memantine (Namenda) 10 mg PO BID [facility] Last Admin: 04/05/18 09:45 Dose: 10 mg Metformin HCl (Glucophage) 500 mg PO BID [facility] Last Admin: 04/05/18 09:44 Dose: 500 mg Pantoprazole Sodium (Protonix Ec Tab) 20 mg PO DAILY [facility] Last Admin: 04/05/18 09:46 Dose: 20 mg Risperidone (Risperdal Tab) 0.5 mg PO [facility] Sertraline HCl (Zoloft) 100 mg PO HS [facility] Last Admin: 04/04/18 21:13 Dose: 100 mg Zolpidem Tartrate (Ambien) 5 mg PO HS [facility] Last Admin: 04/04/18 21:13 Dose: 5 mg Physical Exam - Constitutional Appears: Well - Head Exam Head Exam: ATRAUMATIC, NORMAL INSPECTION, NORMOCEPHALIC - Eye Exam Eye Exam: EOMI, Normal appearance, PERRL - ENT Exam ENT Exam: Mucous Membranes Moist, Normal Exam - Neck Exam Neck exam: Positive for: Normal Inspection - Respiratory Exam Respiratory Exam: Clear to Auscultation Bilateral, NORMAL BREATHING PATTERN - GI/Abdominal Exam GI & Abdominal Exam: Normal Bowel Sounds, Soft. absent: Tenderness - Rectal Exam Rectal Exam: Deferred - Extremities Exam Extremities exam: Positive for: normal inspection - Back Exam Back exam: NORMAL INSPECTION - Neurological Exam Neurological exam: Alert, Altered, CN II-XII Intact, Reflexes Normal Additional comments: Moves all extremities normally. Able to feed herself. - Psychiatric Exam Psychiatric exam: Normal Affect, Normal Mood - Skin Skin Exam: Dry, Intact, Normal Color, Warm Results - Vital Signs Recent Vital Signs: Last Vital Signs Temp 98.3 F 04/05/18 11:56 Pulse 73 04/05/18 11:56 Resp 18 04/05/18 11:56 BP 104/72 04/05/18 11:56 Pulse Ox 97 04/05/18 11:56 - Labs Result Diagrams: 04/03/18 12:35 04/04/18 05:04 Labs: Laboratory Results - last 24 hr 04/04/18 04/04/18 04/04/18 12:11 16:18 21:07 POC Glucose (mg/dL) 102 141 H 113 H 04/05/18 05:19 POC Glucose (mg/dL) 106 Assessment & Plan (1) Altered mental status Assessment and Plan: Acute encephalopathy could be due to medication effect and may be due to a complex partial seizure caused by lowering of the seizure threshold by Zoloft and Risperdal. Consider stopping Risperdal. An EEG may be helpful. Consider MRI as an outpatient. Otherwise, no further recommendations at this time. Thank you for this consultation. Status: Acute
--- NOTE | 2018-04-05 16:29 | CP.PCM.DIS ---
Provider - Provider Date of Admission: 04/02/18 20:02 Attending physician: Hayden Lebron MD Primary care physician: Dr Jerry Consults: Psychiatry: Dr Jimenez Endocrinology: Dr Estrada Neurology: Dr Bear Time Spent in preparation of Discharge (in minutes): 35 Diagnosis - Discharge Diagnosis (1) Altered mental status Status: Acute (2) Hypothyroid Status: Acute Hospital Course - Lab Results Lab Results: Micro Results 04/02/18 19:36 Blood-Venous Blood Culture - Preliminary NO GROWTH AFTER 48 HOURS 04/02/18 21:45 Urine,Catheterized Urine Culture - Final No Growth (<1,000 CFU/ML) Most Recent Lab Values WBC 8.4 K/uL (4.8-10.8) 04/03/18 12:35 RBC 3.26 Mil/uL (3.80-5.20) L 04/03/18 12:35 Hgb 9.7 g/dL (12.0-16.0) L 04/03/18 12:35 Hct 29.7 % (34.0-47.0) L 04/03/18 12:35 MCV 90.9 fl (81.0-99.0) 04/03/18 12:35 MCH 29.8 pg (27.0-31.0) 04/03/18 12:35 MCHC 32.8 g/dL (33.0-37.0) L 04/03/18 12:35 RDW 14.9 % (11.5-14.5) H 04/03/18 12:35 Plt Count 223 K/uL (130-400) 04/03/18 12:35 MPV 8.9 fl (7.2-11.7) 04/02/18 18:45 Neut % (Auto) 50.5 % (50.0-75.0) 04/02/18 18:45 Lymph % (Auto) 36.2 % (20.0-40.0) 04/02/18 18:45 [place] % (Auto) 5.9 % (0.0-10.0) 04/02/18 18:45 Eos % (Auto) 6.4 % (0.0-4.0) H 04/02/18 18:45 Baso % (Auto) 1.0 % (0.0-2.0) 04/02/18 18:45 Neut # (Auto) 4.2 K/uL (1.8-7.0) 04/02/18 18:45 Lymph # (Auto) 3.0 K/uL (1.0-4.3) 04/02/18 18:45 [place]at # (Auto) 0.5 K/uL (0.0-0.8) 04/02/18 18:45 Eos # (Auto) 0.5 K/uL (0.0-0.7) 04/02/18 18:45 Baso # (Auto) 0.1 K/uL (0.0-0.2) 04/02/18 18:45 PT 11.0 Seconds (9.8-13.1) 04/02/18 18:45 INR 1.0 04/02/18 18:45 APTT 32.6 Seconds (25.6-37.1) 04/02/18 18:45 pO2 23 mm/Hg (30-55) L 04/02/18 19:09 VBG pH 7.33 (7.32-7.43) 04/02/18 19:09 VBG pCO2 55 mmHg (40-60) 04/02/18 19:09 VBG HCO3 24.7 mmol/L 04/02/18 19:09 VBG Total CO2 30.7 mmol/L (22-28) H 04/02/18 19:09 VBG O2 Sat (Calc) 43.3 % (40-65) 04/02/18 19:09 VBG Base Excess 1.9 mmol/L (0.0-2.0) 04/02/18 19:09 VBG Potassium 5.1 mmol/L (3.6-5.2) 04/02/18 19:09 Sodium 141.0 mmol/L (132-148) 04/02/18 19:09 Chloride 108.0 mmol/L (98-107) H 04/02/18 19:09 Glucose 106 mg/dL (65-105) H 04/02/18 19:09 Lactate 1.7 mmol/L (0.7-2.1) 04/02/18 19:09 FiO2 21.0 % 04/02/18 19:09 Sodium 141 mmol/l (132-148) 04/04/18 05:04 Potassium 3.9 MMOL/L (3.6-5.0) 04/04/18 05:04 Chloride 111 mmol/L (98-107) H 04/04/18 05:04 Carbon Dioxide 25 mmol/L (22-30) 04/04/18 05:04 Anion Gap 9 (10-20) L 04/04/18 05:04 BUN 14 mg/dl (7-17) 04/04/18 05:04 Creatinine 1.2 mg/dl (0.7-1.2) 04/04/18 05:04 Est GFR ( Amer) 53 04/04/18 05:04 Est GFR (Non-Af Amer) 44 04/04/18 05:04 POC Glucose (mg/dL) 74 mg/dL (65-110) 04/05/18 16:10 Random Glucose 89 mg/dL (65-105) 04/04/18 05:04 Hemoglobin A1c 6.0 % (4.2-6.5) 04/02/18 19:20 Calcium 9.3 mg/dL (8.4-10.2) 04/04/18 05:04 Phosphorus 4.0 mg/dl (2.5-4.5) 04/02/18 18:45 Magnesium 1.7 MG/DL (1.6-2.3) 04/04/18 05:04 Total Bilirubin 0.2 mg/dl (0.2-1.3) 04/04/18 05:04 AST 38 U/L (14-36) H D 04/04/18 05:04 ALT 52 U/L (9-52) D 04/04/18 05:04 Alkaline Phosphatase 55 U/L (38-126) 04/04/18 05:04 Troponin I < 0.0120 ng/mL (0.00-0.120) 04/02/18 18:45 Total Protein 6.2 G/DL (6.3-8.2) L 04/04/18 05:04 Albumin 3.6 g/dL (3.5-5.0) 04/04/18 05:04 Globulin 2.6 gm/dL (2.2-3.9) 04/04/18 05:04 Albumin/Globulin Ratio 1.4 (1.0-2.1) 04/04/18 05:04 Triglycerides 107 mg/DL (0-149) 04/02/18 18:45 Cholesterol 129 mg/dL (0-199) 04/02/18 18:45 LDL Cholesterol Direct 61 mg/dL (0-129) 04/02/18 18:45 HDL Cholesterol 58 MG/DL (30-70) 04/02/18 18:45 Free T4 0.57 ng/dL (0.78-2.19) L 04/04/18 05:04 Thyroxine (T4) 3.37 ug/dl (5.5-11.0) L 04/04/18 05:04 Total T3 0.442 nmol/L (1.49-2.60) L 04/02/18 21:45 TSH 3rd Generation 159.00 mIU/ML (0.46-4.68) H 04/04/18 05:04 Plasma Cortisol PM 10.4 ug/dL (1.7-14.1) 04/02/18 21:44 Venous Blood Potassium 5.1 mmol/L (3.6-5.2) 04/02/18 19:09 Urine Color Yellow (YELLOW) 04/02/18 21:45 Urine Clarity Slighty-cloudy (Clear) 04/02/18 21:45 Urine pH 6.0 (5.0-8.0) 04/02/18 21:45 Ur Specific [place] 1.017 (1.003-1.030) 04/02/18 21:45 Urine Protein Negative mg/dL (NEGATIVE) 04/02/18 21:45 Urine Glucose (UA) Neg mg/dL (Normal) 04/02/18 21:45 Urine Ketones Negative mg/dL (NEGATIVE) 04/02/18 21:45 Urine Blood Negative (NEGATIVE) 04/02/18 21:45 Urine Nitrate Negative (NEGATIVE) 04/02/18 21:45 Urine Bilirubin Negative (NEGATIVE) 04/02/18 21:45 Urine Urobilinogen 0.2-1.0 mg/dL (0.2-1.0) 04/02/18 21:45 Ur Leukocyte Esterase Small Tony/uL (Negative) 04/02/18 21:45 Urine RBC (Auto) 1 /hpf (0-3) 04/02/18 21:45 Urine Microscopic WBC 3 /hpf (0-5) 04/02/18 21:45 Ur Squamous Epith Cells < 1 /hpf (0-5) 04/02/18 21:45 Hyaline Casts 0-2 /hpf (0-2) 04/02/18 21:45 Urine Opiates Screen Negative (NEGATIVE) 04/02/18 21:45 Urine Methadone Screen Negative (NEGATIVE) 04/02/18 21:45 Ur Barbiturates Screen Negative (NEGATIVE) 04/02/18 21:45 Ur Phencyclidine Scrn Negative (NEGATIVE) 04/02/18 21:45 Ur Amphetamines Screen Negative (NEGATIVE) 04/02/18 21:45 U Benzodiazepines Scrn Negative (NEGATIVE) 04/02/18 21:45 U Oth Cocaine Metabols Negative (NEGATIVE) 04/02/18 21:45 U Cannabinoids Screen Negative (NEGATIVE) 04/02/18 21:45 Alcohol, Quantitative < 10 mg/dl (0-10) 04/02/18 18:45 Blood Type A POSITIVE 04/02/18 19:36 Antibody Screen Negative 04/02/18 19:36 BBK History Checked No verified bt 04/02/18 19:36 - Hospital Course Hospital Course: 77 y/o F with A pMHx of HTN, dementia and DM2 was admitted for evaluation and management of altered mental status and uncontrolled hypothyroidism. Bloodwork was remarkable for elevated TSH (159) and Head CT showed no new changes.Pt had a couple of episodes of agitation which were controlled with ativan at first. Psychiatrist ealuated pt and started her on Risperidal and recommended to stop Ambien and avoid benzodiazepines. Neurologist evaluated pt and cleared pt for outpatient management. Photograph Tinter modified dose of Levothyroxine to 100mcg daily. Today, py was seen and examined by bedside with Dr Pryor. Pt seems oriented only to person and reported feeling fine. Pt was afebrile, tolerating PO with Simona cute events overnight, stable, will be discharged home today. Pt will follow up with Dr Jerry, her PCP within 1 week. - Date & Time of H&P Date of H&P: 04/03/18 Time of H&P: 11:58 Discharge Exam - Additional Findings Additional findings: - Constitutional Appears: No Acute Distress - Head Exam Head Exam: ATRAUMATIC, NORMAL INSPECTION - Eye Exam Eye Exam: EOMI - ENT Exam ENT Exam: Mucous Membranes Dry - Neck Exam Neck Exam: Full ROM - Respiratory Exam Respiratory Exam: NORMAL BREATHING PATTERN. absent: Rhonchi, Wheezes, Respiratory Distress - Cardiovascular Exam Cardiovascular Exam: +S1, +S2 - GI/Abdominal Exam GI & Abdominal Exam: Soft. absent: Distended, Firm, Guarding, Tenderness - Extremities Exam Extremities Exam: Full ROM. absent: Calf Tenderness - Neurological Exam Neurological Exam: Alert, Awake Discharge Plan - Discharge Medications Prescriptions: Levothyroxine [Synthroid] 100 mcg PO DAILY #30 tab Risperidone [Risperdal] 0.5 mg PO HS #30 tablet risperiDONE [RisperDAL Tab] 0.5 mg PO HS #30 tab - Follow Up Plan Condition: SERIOUS Disposition: HOME/ ROUTINE Instructions: Altered Mental Status (DC), Hypothyroidism (Underactive Thyroid) (DC) Additional Instructions: follow up with pmd in 1 week Referrals: Jonel Jerry MD [Staff Provider] - Hayden Lebron MD [Staff Provider] -
--- NOTE | 2018-04-05 16:36 | PCM.EEG ---
Electroencephalogram Report - Electroencephalogram Report Procedure Date: 04/04/18 Medication: Namenda, Zolpiden, Risperdal Interpretation: Technical Information: This was a 16 -channel EEG, 1-channel EKG routine EEG performed using an [employer] machine. Electrodes were applied using the 10/20 international placement system. Strt 18;31 Stop 19;16 Total 47 min Clinical Information: 77 y/o woman with alter mental status. During resting wakefulness there was a symmetric posterior dominant rhythm at 8.5-9.5 Hz, 30-50 uV, which was reactive to eye opening and closing. . Drowsiness was not seen Sleep was not seen. Hyperventilation was not performed. Photic stimulation was performed and there were no changes on the record. Focal abnormality; none ECG was associated with a normal sinus rhythm. Impression: This is a normal awake electroencephalogram.
[2018-04-05 20:41] VITALS: BP 121/77; PULSE 90; RESP 16; TEMP 98.2; O2SAT 98
--- NOTE | 2018-04-05 21:10 | PN ---
DATE: 04/05/2018 LOCATION: In room 404. SUBJECTIVE: This is a 77-year-old female with known history of type 2 diabetes and hypertension, presenting here with marked hypothyroidism and near myxedema and is now being followed closely for metabolic management. Her glycemic levels have been low normal because of the variability of her oral intake, and the glucose values today have ranged from 74-106 and 150 mg/dL. LABORATORY DATA: Her latest chemistry showed a BUN of 14, sodium 141, potassium 3.9, chloride 111, CO2 25, glucose 89 and creatinine 1.2. Her latest thyroid study showed a T4 of 3.37 with a TSH of 159.00 and a free T4 of 0.57. ASSESSMENT AND PLAN: So at this time, we will actually discontinue her metformin given as 500 mg b.i.d. as ordered. We will also discontinue now her IV levothyroxine as she is possibly scheduled for discharge today as noted. We will switch her over to oral levothyroxine given as 100 mcg once daily in the morning as ordered. She will follow with her medical doctor for ongoing endocrine evaluation and management. We will follow. Nida Estrada MD
[2018-04-06] MEDS ORDERED: Levothyroxine 100 MCG TAB PO SCH (06:30)
--- NOTE | 2018-04-10 17:23 | PQF ---
PROVIDER RESPONSE TEXT: Provider was unable to determine a response for this query. REVIEWER QUERY TEXT: Altered Mental Status - Underlying Cause A mental status change is documented in the Medical Record. Please specify the underlying cause Such as: -- Due to medication -- Cardiac condition -- Electrolyte/metabolic imbalance -- Infectious process -- Neurologic condition -- Psychiatric condition -- Respiratory condition -- Other, please specify 04/03 County Supervisor: presenting here with near myxedema and concomitant marked hypothyroidism both historically, clinically, and biochemically most likely related to underlying autoimmune thyroiditis with significant history of advanced Alzheimer's dementia with possible recent drug omission as not ed thereof 04/04 Psych consult: 77 yo female w/ h/o dementia, HTN, DM, HLD, presented w/ sudden onset unresponsi veness and also had periods of agitation overnight. Patient appears to be at her baseline of function ing at this time. -No acute psychiatric admission indicated -If patient continues to have behavioral disturbances, can change Risperdal dosing to 0.5 mg PO Daily @1700 or HS -Recommend to stop Ambien and avoid benzodiazepines as they can worsen confusion and cause agitation in the elderly 04/04 Endocrinology progress note: marked hypothyroidism noted both historically, clinically and bio chemically with underlying autoimmune thyroiditis and clearly has recent drug omission with concomita nt advanced Alzheimer's dementia as noted. 04/05 Neuro consult: with a PMH of advanced Dementia, on Namenda, insomnia (was on Ambien), agitation , on Risperdal and depression, on Zoloft, who had an episode of staring and non-responsiveness lastin g about 5-10 minutes. Assessment: Altered mental status Assessment and Plan: Acute encephalopathy could be due to medic ation effect and may be due to a complex partial seizure caused by lowering of the seizure threshold by Zoloft and Risperdal. Consider stopping Risperdal. An EEG may be helpful. Consider MRI as an outpa tient. Otherwise, no further recommendations at this time. The patient's Clinical Indicators include: - Query created by: Carolina Caldera on 04/07/2018 8:51 AM Electronically signed by: Stanislav Pryor 04/10/2018 5:19 PM
== END 2018-04-05 20:15 | disposition home or self-care (01) | DRG 947 ==
LOC: H.ER 18:57 → H.ERHOLD 20:02 → H.TEL 04-03 20:55
PROVIDERS: ADMIT Family Medicine; ATTEND Family Medicine
DX: R41.82 Altered mental status, unspecified (principal); G92 Toxic encephalopathy; F02.81 Dementia in other diseases classified elsewhere, unspecified severity, with behavioral disturbance; G40.89 Other seizures; G93.49 Other encephalopathy; G30.9 Alzheimer's disease, unspecified; E06.3 Autoimmune thyroiditis; G47.00 Insomnia, unspecified; I10 Essential (primary) hypertension; E11.9 Type 2 diabetes mellitus without complications; J45.909 Unspecified asthma, uncomplicated; E78.00 Pure hypercholesterolemia, unspecified; E78.5 Hyperlipidemia, unspecified; M19.90 Unspecified osteoarthritis, unspecified site; K29.70 Gastritis, unspecified, without bleeding; D64.9 Anemia, unspecified; G47.10 Hypersomnia, unspecified